=== PATIENT | female | born 2000 | race Caucasian/White ===

== ENCOUNTER 2022-11-13 09:30 | Outpatient (OUT) | payer BC, SELFPAY ==
--- NOTE | 2022-11-13 09:35 | US_ITS ---
[place] [id number] Patient Name: ALPA KNIGHT MRN: [id number] date: 2000 Sex: F Assigned Patient Location: US Current Patient Location: US Accession/Order Number: [id number] Exam Date: 11/13/2022 09:34 Report Date: 11/13/2022 20:13 At the request of: OXANA LLANOS Procedure: US OB incomplete anatomy EXAM: US OB incomplete anatomy HISTORY: SUBVISUALIZED ANATOMY COMPARISON: 10/15/2022 TECHNIQUE: Transabdominal images FINDINGS: Heart rate: 152 beats minute Clinical age: 25 weeks 3 days Clinical ALE: 02/23/2023 Normal observed anatomy: Cerebellum, lateral ventricles, hard palate, RVOT, LVOT, cord insertion, three-vessel cord Suboptimal visualization due to maternal body habitus: IMPRESSION: Normal observed anatomy Electronically authenticated by: JOSE DURHAM Date: 11/13/2022 20:13
== END 2022-11-13 09:31 | disposition home or self-care (01) ==
LOC: US 09:31
PROVIDERS: Visit Provider Obstetrics & Gynecology
DX: Z36.2 Encounter for other antenatal screening follow-up (principal); Z01.419 Encounter for gynecological examination (general) (routine) without abnormal findings
CPT/HCPCS: 76815; G0145

== ENCOUNTER 2022-11-13 20:34 | Outpatient (REF) | payer BC, SELFPAY ==
[2022-11-17 13:07] LABS: Age Gdln ACOG Testing Note (.); IGP, rfx Aptima HPV ASCU Note (.)
== END 2022-11-13 20:35 | disposition home or self-care (01) ==
LOC: LAB 20:34
PROVIDERS: Visit Provider Obstetrics & Gynecology
DX: Z01.419 Encounter for gynecological examination (general) (routine) without abnormal findings (principal)
CPT/HCPCS: G0145

== ENCOUNTER 2022-11-14 16:19 | Outpatient (OUT) | payer BC, SELFPAY ==
[2022-11-14 17:03] LABS: BOX Test Sent Out Y
== END 2022-11-14 16:20 | disposition home or self-care (01) ==
PROVIDERS: Visit Provider Obstetrics & Gynecology
DX: Z34.91 Encounter for supervision of normal pregnancy, unspecified, first trimester (principal)
CPT/HCPCS: 36415

== ENCOUNTER 2023-01-08 09:59 | Outpatient (OUT) | payer BC, SELFPAY ==
--- NOTE | 2023-01-08 10:00 | US_ITS ---
The [address] [address] Patient Name: ALPA KNIGHT MRN: [id number] date: 2000 Sex: F Assigned Patient Location: US Current Patient Location: US Accession/Order Number: [id number] Exam Date: 01/08/2023 10:01 Report Date: 01/08/2023 15:16 At the request of: OXANA LLANOS Procedure: US OB growth EXAMINATION: US OB growth HISTORY: SIZE INCONSISTENT WITH DATES COMPARISON: No relevant comparison available. FINDINGS: Heart Rate: 168.0 bpm Number: 1.0 Position: Cephalic Amniotic Fluid Volume: 17.3 cm Maximum Vertical Pocket: 6.8 cm BIOMETRY: BPD: 8.4 cm cm; 33 weeks 5 days HC: 29.9 cmcm; 33 weeks 1 days AC: 30.5 cm cm; 34 weeks 3 days FL: 6.4 cm cm; 33 weeks 1 days EFW: 2292.9 grams; 55% FL/AC: 21.0 FL/BPD: 76.7 HC/AC: 1.0 GESTATIONAL AGE: Age by EDC: 33 weeks 3 days ALE by EDC: 02/23/2023 Age by US: 33 weeks 4 days ALE by US: 02/22/2023 US/US OB growth IMPRESSION: 1. Single live intrauterine with growth detailed above. Electronically authenticated by: ДМИТРИЙ JONES Date: 01/08/2023 15:16
== END 2023-01-08 10:00 | disposition home or self-care (01) ==
LOC: US 09:59
PROVIDERS: Visit Provider Obstetrics & Gynecology
DX: O26.843 Uterine size-date discrepancy, third trimester (principal); Z3A.33 33 weeks gestation of pregnancy
CPT/HCPCS: 76816

== ENCOUNTER 2023-01-30 20:33 | Outpatient (REF) | payer BC, SELFPAY | END 2023-01-30 20:34 | disposition home or self-care (01) | LOC: LAB 20:33 | PROVIDERS: Visit Provider Obstetrics & Gynecology | DX: Z34.93 Encounter for supervision of normal pregnancy, unspecified, third trimester (principal) | CPT/HCPCS: 87081 ==

== ENCOUNTER 2023-02-12 12:15 | Outpatient (OUT) | payer BC, SELFPAY ==
--- NOTE | 2023-02-12 12:24 | US_ITS ---
[address] [address] Patient Name: ALPA KNIGHT MRN: [id number] date: 2000 Sex: F Assigned Patient Location: [facility] Current Patient Location: [facility] Accession/Order Number: [id number] Exam Date: 02/12/2023 12:30 Report Date: 02/12/2023 13:18 At the request of: OXANA LLANOS Procedure: US OB BPP w non-stress EXAM: US OB growth, US OB BPP w non-stress; [id number], [id number] HISTORY: Decreased motion. COMPARISON: growth ultrasound 01/08/2023. FINDINGS: A single intrauterine is identified. Presentation is cephalic. BPD 8.91 cm = 36 weeks 0 days, 15.8 percentile. HC 31.86 cm = 35 weeks 6 days, less than 3 percentile (previously 10.6 percentile) AC 34.51 cm = 38 weeks 3 days, 69.3 percentile FL 7.01 cm = 36 weeks 0 days, 5.9 percentile. Composite gestational age is 36 weeks 4 days (+/- 2 weeks 4 days). Estimated weight is 3164 +/- 474.66 g. CI = 82.07 (70.0-86.0) HC/AC = 0.92 (0.92 - 1.06) EFW Percentile: 35.4%, previously 55.4% Biophysical profile: Movement: 2 Tone: 2 Breathin Fluid: 2 Total: 8/8 heart rate measures 131 bpm. Amniotic fluid index (JESS) measures 16.31 cm. Cervix appears closed. US/US OB BPP w non-stress IMPRESSION: 1. Single living intrauterine with interval growth. 2. Estimated gestational age is 36 w 4 d based on this exam, concordant with provided gestational age of 38 weeks 3 days when accounting for the confidence interval of +/- 2 weeks 4 days. 3. Estimated weight of 3164 g. 4. Normal amniotic fluid index. 5. Normal biophysical profile. 6. Head circumference is less than 3 percentile. Electronically authenticated by: KYA FRANCOIS Date: 02/12/2023 13:18
--- NOTE | 2023-02-12 12:24 | US_ITS ---
The [address] [address] Patient Name: ALPA KNIGHT MRN: [id number] date: 2000 Sex: F Assigned Patient Location: [facility] Current Patient Location: [facility] Accession/Order Number: [id number] Exam Date: 02/12/2023 12:30 Report Date: 02/12/2023 13:18 At the request of: OXANA LLANOS Procedure: US OB growth EXAM: US OB growth, US OB BPP w non-stress; [id number], [id number] HISTORY: Decreased motion. COMPARISON: growth ultrasound 01/08/2023. FINDINGS: A single intrauterine is identified. Presentation is cephalic. BPD 8.91 cm = 36 weeks 0 days, 15.8 percentile. HC 31.86 cm = 35 weeks 6 days, less than 3 percentile (previously 10.6 percentile) AC 34.51 cm = 38 weeks 3 days, 69.3 percentile FL 7.01 cm = 36 weeks 0 days, 5.9 percentile. Composite gestational age is 36 weeks 4 days (+/- 2 weeks 4 days). Estimated weight is 3164 +/- 474.66 g. CI = 82.07 (70.0-86.0) HC/AC = 0.92 (0.92 - 1.06) EFW Percentile: 35.4%, previously 55.4% Biophysical profile: Movement: 2 Tone: 2 Breathin Fluid: 2 Total: 8/8 heart rate measures 131 bpm. Amniotic fluid index (JESS) measures 16.31 cm. Cervix appears closed. US/US OB growth IMPRESSION: 1. Single living intrauterine with interval growth. 2. Estimated gestational age is 36 w 4 d based on this exam, concordant with provided gestational age of 38 weeks 3 days when accounting for the confidence interval of +/- 2 weeks 4 days. 3. Estimated weight of 3164 g. 4. Normal amniotic fluid index. 5. Normal biophysical profile. 6. Head circumference is less than 3 percentile. Electronically authenticated by: KYA FRANCOIS Date: 02/12/2023 13:18
[2023-02-12 12:56] VITALS: BP 140/93; PULSE 103
== END 2023-02-12 13:28 | disposition home or self-care (01) ==
LOC: FBCO 12:17 → FBC 12:18
PROVIDERS: Visit Provider Obstetrics & Gynecology
DX: O36.8130 Decreased fetal movements, third trimester, not applicable or unspecified (principal); Z3A.38 38 weeks gestation of pregnancy
CPT/HCPCS: 76816; 76818

== ENCOUNTER 2023-02-18 10:06 | Inpatient (IN) | payer BC, SELFPAY ==
[2023-02-18] VITALS (45 sets, daily range): BP systolic 101–149; BP diastolic 61–104; PULSE 73–100; RESP 13–24; TEMP 36.2–37.1; O2SAT 96–100
[2023-02-18] MEDS: 0.9 % SODIUM CHLORIDE 1,000 ML 1000 ML IV ×2 (11:13→11:29)
[2023-02-18 11:24] LABS: Bilirubin Urine NEGATIVE (NEGATIVE); Blood Urine MODERATE (NEGATIVE); Color Urine LT. YELLOW (YELLOW); Glucose Urine UA NEGATIVE (NEGATIVE); Ketones Urine NEGATIVE (NEGATIVE); Leukocyte Esterase Urine MODERATE (NEGATIVE); Nitrite Urine NEGATIVE (NEGATIVE); Protein Urine TRACE mg/dL (NEG/TRACE); Specific Gravity Urine 1.025 (1.005-1.025); Urobilinogen Urine 0.2 EU/dL (0.2-1.0)
[2023-02-18 11:28] LABS: Clarity Urine CLOUDY (CLEAR)
[2023-02-18 11:39] LABS: Basophils Percent Auto 0.5 % (0.2-2.0); Eosinophils Absolute Auto 0.1 10^3/uL (0.0-0.7); Eosinophils Percent Auto 1.9 % (0.9-7.0); Hematocrit 36.1 % (36.0-48.0); Hemoglobin 12.2 g/dL (12.0-16.0); Immature Granulocytes Abs Auto 0.03 10^3/uL (0.00-0.03); Immature Granulocytes Pct Auto 0.4 % (0.0-0.5); Lymphocytes Absolute Auto 1.4 10^3/uL (1.2-3.8); Lymphocytes Percent Auto 19.2 % (20.5-60.0); Mean Corpuscular HGB Conc 33.8 g/dL (29.9-35.2); Mean Corpuscular Hemoglobin 27.4 pg (26.7-34.0); Mean Corpuscular Volume 80.9 fL (81.0-99.0); Mean Platelet Volume 9.9 fL (9.5-13.5); Monocytes Absolute Auto 0.4 10^3/uL (0.3-0.8); Monocytes Percent Auto 5.3 % (1.7-12.0); Neutrophils Absolute Auto 5.4 10^3/uL (1.4-6.5); Neutrophils Percent Auto 72.7 % (43.0-75.0); Platelet Count 272 10^3/uL (150-450); Red Blood Count 4.46 10^6/uL (4.20-5.40); Red Cell Distribution Width 13.7 % (11.0-15.0); White Blood Count 7.4 10^3/uL (4.0-11.0)
[2023-02-18 11:49] LABS: Amphetamine Screen Urine NEGATIVE (NEGATIVE); Barbiturates Screen Urine NEGATIVE (NEGATIVE); Benzodiazepines Screen Urine NEGATIVE (NEGATIVE); Buprenorphine Screen Urine NEGATIVE (NEGATIVE); Cannabinoid Screen Urine NEGATIVE (NEGATIVE); Cocaine Screen Urine NEGATIVE (NEGATIVE); Methadone Screen Urine NEGATIVE (NEGATIVE); Methamphetamines Screen Urine NEGATIVE (NEGATIVE); Opiate Screen Urine NEGATIVE (NEGATIVE); Oxycodone Screen Urine NEGATIVE (NEGATIVE); Phencyclidine Screen Urine NEGATIVE (NEGATIVE); Tricyclic Antidepressant Urine NEGATIVE (NEGATIVE)
[2023-02-18 11:57] LABS: Bacteria Urine LARGE #/HPF (NONE SEEN); Mucus Urine NONE SEEN (NONE SEEN)
[2023-02-18 11:58] LABS: Squamous Epithelial Cell Urine MODERATE #/LPF (NONE/RARE)
[2023-02-18] MEDS: CEFAZOLIN SODIUM/DEXTROSE,ISO 2 GM/50 ML PIGGYBACK IV ×2 (12:35→18:11)
[2023-02-18] MEDS: LACTATED RINGER'S SOLUTION 1,000 ML 50 ML IV ×2 (12:40→13:47)
--- NOTE | 2023-02-18 13:41 | P.ON_ITS ---
Brief Operative Note Date of procedure: 02/18/23 Pre-op diagnosis: iup at 39wks, cpd, elective c/s Post-op diagnosis: same as pre-op Procedure: NAME OF PROCEDURE: [ section ] PROCEDURE: Patient was taken back to the Operating Room where she was given a spinal anesthesia with Duramorph without difficulty. She was prepped and draped in the normal sterile fashion. A Pfannenstiel skin incision was then made 2 cm above the symphysis pubis and carried down to underlying rectus fascia using a Bovie. The fascia was incised in the midline and extended laterally using Mendoza scissors. Two Raj clamps were placed on the superior aspect of the fascia and dissected off the underlying rectus muscles. The same was performed on the inferior aspect as well. The muscles were then in the midline. Peritoneum was identified and entered bluntly. The peritoneum was then extended superiorly and inferiorly with good visualization of the bladder. The bladder blade was inserted. A low transverse incision was made on the patient's uterus and extended laterally digitally. The infant was then delivered atraumatically after the bladder blade was removed in the cephalic position. The cord was clamped and cut. Cord blood was obtained. The was handed off to awaiting team. The patient's placenta was spontaneously delivered. The uterus was then exteriorized. The uterus was cleared of all clots and debris. The ivonne dder blade was reinserted. The patient's uterine incision was closed using #0 Vicryl in a running lock fashion. Excellent hemostasis was assured. The uterus was then returned to the patient's abdomen. The patient's abdomen was copiously irrigated using warm saline. Peritoneal gutters were cleared of all clots and debris. Again excellent hemostasis was assured. The patient's peritoneum was closed using 3-0 Vicryl in a running fashion. The patient's fascia was closed using #0 Vicryl in a running fashion. The patient's skin was closed using 4-0 Vicryl subcuticularly. The patient tolerated the procedure well. Sponge, lap, and needle counts were correct x2. The patient was taken to the Recovery Room in stable condition. Anesthesia: spinal Surgeon: Leonid Mckeon Senior Loan Processor: Nayana Powell Estimated blood loss (mL): 575 Pathology: none sent Condition: stable Disposition: floor
--- NOTE | 2023-02-18 13:42 | PM.OBPRCCS ---
Procedure Pre-op/Post-op diagnoses: Pre-Op/Post-Op Diagnoses Operation Date: 02/18/23 12:00 <No data on this case meets the specified criteria> Procedure: Procedures Operation Date: 02/18/23 12:00 Actual Procedure Side Surgeon p Not Applicable Leonid Mckeon DO Email Marketing Coordinator: Nayana Powell Estimated blood loss (mL): 575 Disposition: floor Anesthesia type: Spinal
[2023-02-18] MEDS: OXYTOCIN/0.9 % SODIUM CHLORIDE 20 UNITS/1,000 ML PLAST..BAG 200 UNIT IV (14:21)
[2023-02-18] MEDS: KETOROLAC TROMETHAMINE 30 MG/ML VIAL IVP ×2 (15:32→22:30)
--- NOTE | 2023-02-18 22:15 | PC.NURSE ---
2150-Patient pumping after attempting to feed without success. sleepy at this time. 2204- Finger fed infant drops collected on pump.
--- NOTE | 2023-02-18 23:52 | PC.NURSE ---
Patient up to bathroom. PeriCare performed and linens changed. Patient up ambulating in room. Tolerated well.
[2023-02-19] VITALS (10 sets, daily range): BP systolic 117–165; BP diastolic 74–90; PULSE 84–102; RESP 16–18; TEMP 36.2–36.5; O2SAT 96
--- NOTE | 2023-02-19 00:11 | PC.NURSE ---
Set blood pressure cuff for 15 minutes due to elevated pressure. Patient was just up ambulating prior to vitals.
[2023-02-19] MEDS: ENOXAPARIN SODIUM 40 MG/0.4 ML SYRINGE SUBQ (02:11)
[2023-02-19] MEDS: KETOROLAC TROMETHAMINE 30 MG/ML VIAL IVP ×3 (05:39→17:59)
[2023-02-19 06:00] LABS: Basophils Percent Auto 0.4 % (0.2-2.0); Eosinophils Absolute Auto 0.1 10^3/uL (0.0-0.7); Hematocrit 30.5 % (36.0-48.0); Immature Granulocytes Abs Auto 0.01 10^3/uL (0.00-0.03); Immature Granulocytes Pct Auto 0.1 % (0.0-0.5); Lymphocytes Absolute Auto 2.3 10^3/uL (1.2-3.8); Lymphocytes Percent Auto 29.9 % (20.5-60.0); Mean Corpuscular HGB Conc 32.8 g/dL (29.9-35.2); Mean Corpuscular Hemoglobin 27.2 pg (26.7-34.0); Mean Corpuscular Volume 83.1 fL (81.0-99.0); Mean Platelet Volume 9.2 fL (9.5-13.5); Monocytes Absolute Auto 0.4 10^3/uL (0.3-0.8); Monocytes Percent Auto 4.9 % (1.7-12.0); Neutrophils Absolute Auto 4.9 10^3/uL (1.4-6.5); Neutrophils Percent Auto 63.7 % (43.0-75.0); Platelet Count 213 10^3/uL (150-450); Red Blood Count 3.67 10^6/uL (4.20-5.40); White Blood Count 7.8 10^3/uL (4.0-11.0)
--- NOTE | 2023-02-19 07:32 | PM.OBPN ---
OB - PN: Subj Subjective Patient comments: no complaints [place] status: doing well Exam Constitutional Vital Signs, click to edit/add: Last Vital Signs Temp 97.7 F 02/19/23 05:30 Pulse 90 02/19/23 05:27 Resp 16 02/19/23 05:30 BP 151/79 H 02/19/23 05:27 Pulse Ox 96 02/19/23 05:30 O2 Del Method Room Air 02/19/23 05:30 Documenting provider has reviewed patient's vital signs: yes Common normals: no apparent distress Respiratory Common normals: normal respiratory effort and clear to auscultation bilaterally Cardio Common normals: regular rate and regular rhythm GI Common normals: Normal to inspection, nondistended, normoactive bowel sounds present Extremity Common normals: no clubbing, cyanosis or edema and no calf tenderness Results Labs Labs: Short CBC 02/18/23 02/19/23 Range/Units 10:45 05:54 WBC 7.4 7.8 (4.0-11.0) 10^3/uL Hgb 12.2 10.0 L (12.0-16.0) g/dL Hct 36.1 30.5 L (36.0-48.0) % Plt Count 272 213 (150-450) 10^3/uL Urine 02/18/23 Range/Units 10:45 Urine Color Lt. yellow (YELLOW) Urine Clarity Cloudy A (CLEAR) Urine pH 6.0 (5.0-9.0) Ur Specific [place] 1.025 (1.005-1.025) Urine Protein Trace (NEG/TRACE) mg/dL Urine Glucose (UA) Negative (NEGATIVE) mg/dL OB - PN: A/P Plan - day: 1 Plan: routine postop care Time Spent with Patient Time: Total time spent is greater than 50% in coordination of care (as documented) at patient's floor/unit and/or counseling patient: Total time spent with greater than 50% in coordination of care (as documented) at patient's floor/unit and/or counseling patient: less than 15 minutes
[2023-02-19] MEDS: DOCUSATE SODIUM 100 MG CAPSULE PO ×2 (08:22→22:25)
--- NOTE | 2023-02-19 09:28 | PC.NURSE ---
LC enter room, Lynne in bed with baby on chest skin to skin. Baby is crying, hat over eyes and arching back. Lynne does not soothe or talk to baby, father on couch on his phone. LC talk to baby and he quiets self. Mom encouraged to talk and interact with baby. Encouraged to be up to rocking chair for feed. Does as requested and settled self. NB to cross cradle position. Review of positioning for deep latch and then latching baby. Lynne does not show eagerness to assist with latch. requests to use shield and LC reviewed placement of same. LC assists in getting baby to latch with shield, Lynne reluctant to support breast to aid. Baby does latch and suckle with shield on. LC encourages Lynne to take lead in feeding and learning to latch baby independently. Of note: Breasts are symmetrical bilaterally, wide space between breasts and nipples are flat, slightly everts with stimulation. reports barely drops when pumping Reviewed process of milk coming in and the value of good massage, stimulation and milk removal to bring in milk. Both verbalized understanding.
--- NOTE | 2023-02-19 14:58 | PC.NURSE ---
Infant PKU, Bili and Point of Care Glucose obtained due to being jittery. Blood Glucose of 57. Bili obtained and sent to lab. PKU completed. Infant rooting excessively, returned to mom, to breast in cross cradle hold, latches with shield and begins sucking with intermittent swallows.Parents actively working to position, and latch . Mom displays confidence in getting baby to breast. States There we are getting the hang of this Support offered.
--- NOTE | 2023-02-19 19:42 | W.PC.ACHO ---
Registration Status: ADM IN Primary Language: Bolivian Preferred Language: Bolivian Active Medications Generic Name Dose Route Start Last Admin Trade Name Freq PRN Reason Stop Dose Admin Al Hydroxide/Mg Hydroxide 2,400 mg 02/18/23 13:39 Magnesium Hydroxide 2,400 Mg/10 Ml Oral.Susp PO Q6H PRN Dyspepsia Diphtheria/Pertussis/Tetanus Vacc 0.5 ml 02/20/23 09:00 Adacel Diph,Pertuss(Acell),Tet Vac/Pf 0.5 Ml Adult Syringe IM 02/20/23 09:01 .ONCE ONE Docusate Sodium 100 mg 02/19/23 09:00 02/19/23 08:22 Docusate Sodium 100 Mg Capsule PO 100 mg BID KIKO Administration Enoxaparin Sodium 40 mg 02/19/23 02:00 02/19/23 02:11 Enoxaparin Sodium 40 Mg/0.4 Ml Syringe SUBQ 40 mg Q24H KIKO Administration Lactated Ringer's 1,000 mls @ 50 mls/hr 02/18/23 13:30 02/18/23 13:47 Lactated Ringers IV 50 mls/hr .Q20H KIKO Administration Sodium Chloride 1,000 mls @ 125 mls/hr 02/18/23 13:45 Sodium Chloride 0.9% 1,000 Ml IV .Q8H KIKO Ibuprofen 800 mg 02/18/23 13:39 Ibuprofen 400 Mg Tablet PO Q8H PRN Pain Ketorolac Tromethamine 30 mg 02/18/23 13:39 02/19/23 17:59 Ketorolac Tromethamine 30 Mg/Ml Vial IVP 02/20/23 13:40 30 mg Q6H PRN Administration Pain Measles/Mumps/Rubella Vaccine Live 0.5 ml 02/20/23 09:00 Measles,Mumps,Rubella Vacc/Pf 0.5 Ml Vial SQ 02/20/23 09:01 .ONCE ONE Misoprostol 1,000 mcg 02/18/23 10:27 Misoprostol 100 Mcg Tablet NJ 02/20/23 10:27 ONCE PRN Uterine Bleeding Misoprostol 600 mcg 02/18/23 10:27 Misoprostol 100 Mcg Tablet PO 02/20/23 10:27 ONCE PRN Uterine Bleeding Misoprostol 800 mcg 02/18/23 10:27 Misoprostol 100 Mcg Tablet SL 02/20/23 10:27 ONCE PRN Uterine Bleeding Ondansetron HCl 4 mg 02/18/23 13:39 Ondansetron Pf 4 Mg/2 Ml Vial IV Q6H PRN Nausea And Vomiting Ondansetron HCl 4 mg 02/18/23 13:39 Ondansetron 4 Mg Rapdis Tablet PO Q6H PRN Nausea And Vomiting Oxycodone/Acetaminophen 1 tab 02/18/23 13:39 Oxycodone Hcl/Acetaminophen 5mg/325mg PO Q4H PRN Pain Scale 4-6 Oxycodone/Acetaminophen 2 tab 02/18/23 13:39 Oxycodone Hcl/Acetaminophen 5mg/325mg PO Q4H PRN Pain Scale 7-10 Oxytocin 10 unit 02/18/23 10:27 Oxytocin 10 Unit/Ml Vial IM 02/20/23 10:27 ONCE PRN Bleeding Promethazine HCl 12.5 mg 02/18/23 11:48 Promethazine Hcl 25 Mg/Ml Vial IV ONCE PRN Nausea Senna 17.2 mg 02/18/23 20:00 Sennosides 8.6 Mg Tablet PO QHS PRN Constipation Simethicone 80 mg 02/18/23 13:39 Simethicone 80 Mg Tab.Chew PO QID PRN Abdominal Distention Varicella Virus Vaccine Live 0.5 ml 02/20/23 09:00 Varicella Vaccine Live/Pf 0.5 Ml Vial SUBQ 02/20/23 09:01 .ONCE ONE Respiratory Pulse Oximetry 96 Oxygen Delivery Method Room Air Oxygen Delivery Method Room Air Oxygen Delivery Method Room Air Oxygen Delivery Method Room Air Oxygen Delivery Method Room Air Oxygen Delivery Method Room Air Oxygen Delivery Method Room Air Oxygen Delivery Method Room Air Cardiology Heart Sounds Strong,Regular Heart Sounds Strong,Regular Bowels Bowel Pattern No Bowel Movement Bowel Pattern No Bowel Movement Bowel Pattern No Bowel Movement Bowel Pattern No Bowel Movement Bowel Pattern No Bowel Movement Renal Bladder Pattern Continent Bladder Pattern Continent
[2023-02-20] MEDS: KETOROLAC TROMETHAMINE 30 MG/ML VIAL IVP ×2 (01:12→08:25)
[2023-02-20] MEDS: ENOXAPARIN SODIUM 40 MG/0.4 ML SYRINGE SUBQ (05:20)
--- NOTE | 2023-02-20 07:22 | W.PC.ACHO ---
Registration Status: ADM IN Primary Language: Estonian Preferred Language: Estonian Active Medications Generic Name Dose Route Start Last Admin Trade Name Freq PRN Reason Stop Dose Admin Al Hydroxide/Mg Hydroxide 2,400 mg 02/18/23 13:39 Magnesium Hydroxide 2,400 Mg/10 Ml Oral.Susp PO Q6H PRN Dyspepsia Diphtheria/Pertussis/Tetanus Vacc 0.5 ml 02/20/23 09:00 Adacel Diph,Pertuss(Acell),Tet Vac/Pf 0.5 Ml Adult Syringe IM 02/20/23 09:01 .ONCE ONE Docusate Sodium 100 mg 02/19/23 09:00 02/19/23 22:25 Docusate Sodium 100 Mg Capsule PO 100 mg BID KIKO Administration Enoxaparin Sodium 40 mg 02/19/23 02:00 02/20/23 05:20 Enoxaparin Sodium 40 Mg/0.4 Ml Syringe SUBQ 40 mg Q24H KIKO Administration Lactated Ringer's 1,000 mls @ 50 mls/hr 02/18/23 13:30 02/18/23 13:47 Lactated Ringers IV 50 mls/hr .Q20H KIKO Administration Sodium Chloride 1,000 mls @ 125 mls/hr 02/18/23 13:45 Sodium Chloride 0.9% 1,000 Ml IV .Q8H KIKO Ibuprofen 800 mg 02/18/23 13:39 Ibuprofen 400 Mg Tablet PO Q8H PRN Pain Ketorolac Tromethamine 30 mg 02/18/23 13:39 02/20/23 01:12 Ketorolac Tromethamine 30 Mg/Ml Vial IVP 02/20/23 13:40 30 mg Q6H PRN Administration Pain Measles/Mumps/Rubella Vaccine Live 0.5 ml 02/20/23 09:00 Measles,Mumps,Rubella Vacc/Pf 0.5 Ml Vial SQ 02/20/23 09:01 .ONCE ONE Misoprostol 1,000 mcg 02/18/23 10:27 Misoprost[address] 02/20/23 10:27 ONCE PRN Uterine Bleeding Misoprostol 600 mcg 02/18/23 10:27 Misoprostol 100 Mcg Tablet PO 02/20/23 10:27 ONCE PRN Uterine Bleeding Misoprostol 800 mcg 02/18/23 10:27 Misoprostol 100 Mcg Tablet SL 02/20/23 10:27 ONCE PRN Uterine Bleeding Ondansetron HCl 4 mg 02/18/23 13:39 Ondansetron Pf 4 Mg/2 Ml Vial IV Q6H PRN Nausea And Vomiting Ondansetron HCl 4 mg 02/18/23 13:39 Ondansetron 4 Mg Rapdis Tablet PO Q6H PRN Nausea And Vomiting Oxycodone/Acetaminophen 1 tab 02/18/23 13:39 Oxycodone Hcl/Acetaminophen 5mg/325mg PO Q4H PRN Pain Scale 4-6 Oxycodone/Acetaminophen 2 tab 02/18/23 13:39 Oxycodone Hcl/Acetaminophen 5mg/325mg PO Q4H PRN Pain Scale 7-10 Oxytocin 10 unit 02/18/23 10:27 Oxytocin 10 Unit/Ml Vial IM 02/20/23 10:27 ONCE PRN Bleeding Promethazine HCl 12.5 mg 02/18/23 11:48 Promethazine Hcl 25 Mg/Ml Vial IV ONCE PRN Nausea Senna 17.2 mg 02/18/23 20:00 Sennosides 8.6 Mg Tablet PO QHS PRN Constipation Simethicone 80 mg 02/18/23 13:39 Simethicone 80 Mg Tab.Chew PO QID PRN Abdominal Distention Varicella Virus Vaccine Live 0.5 ml 02/20/23 09:00 Varicella Vaccine Live/Pf 0.5 Ml Vial SUBQ 02/20/23 09:01 .ONCE ONE Respiratory Oxygen Delivery Method Room Air Oxygen Delivery Method Room Air Oxygen Delivery Method Room Air Oxygen Delivery Method Room Air Oxygen Delivery Method Room Air Cardiology Heart Sounds Strong,Regular Heart Sounds Strong,Regular Bowels Bowel Pattern No Bowel Movement Bowel Pattern No Bowel Movement Renal Bladder Pattern Continent Bladder Pattern Continent Bladder Pattern Continent
[2023-02-20] MEDS: ADACEL DIPH,PERTUSS(ACELL),TET VAC/PF 0.5 ML ADULT SYRINGE IM (08:25)
[2023-02-20] MEDS: DOCUSATE SODIUM 100 MG CAPSULE PO (08:27)
[2023-02-20 08:30] VITALS: BP 138/86; PULSE 78; RESP 16; TEMP 36.9
[2023-02-20 08:43] VITALS: BP 140/94; PULSE 88
[2023-02-20 08:47] VITALS: BP 152/97; PULSE 99
[2023-02-20 13:00] VITALS: BP 140/82
--- NOTE | 2023-02-20 13:22 | PM.OBDS ---
DS: Providers Provider Date of admission: 02/18/23 10:06 Primary care physician: Non-Staff Physician, Attending physician on admission: Leonid Mckeon Consults: 02/18/23 Consult to Anesthesiology Routine Consulting Provider: Hospitalist Reason for consultation: SPINAL Has provider been notified: Yes Discharging clinician: Britney Brand Anticipated date of discharge: 02/20/23 DS: Diagnosis Discharge Diagnosis (1) delivery delivered: Assessment and plan: CLINICAL EXAM NON FOCAL, VITAL SIGNS NORMAL ECCEPT BLOOD PRESSURE READING WHICH WAS ELEVATED DUE TO CUFF NOT FITTING, NORMALIZED WITH APPROPRIATE SIZE CUFF Plan DISCHARGE OB - DS: Summary Hospital Course Time spent discussing smoking cessation with patient: 3 to 10 minutes Peripartum Data - Procedures: Procedures Operation Date: 02/18/23 12:00 Actual Procedure Side Surgeon p Not Applicable Leonid Mckeon DO Peripartum Data - Vaginal Delivery Procedures: Procedures Operation Date: 02/18/23 12:00 Actual Procedure Side Surgeon p Not Applicable Leonid Mckeon DO Complications complications: none Delivery method: elective section Gender: female Discharge plan: home Status at Discharge Functional status at discharge: independent ambulation Time Spent with Patient Time attestation: Total time spent providing and/or coordinating discharge services: Time spent: less than 30 minutes Specific discharge activities: NO SEX SIX WEEKS, NO BATHTUB FOR SIX WEEKS, MAY SHOWER, LIMIT TIME IN CAR 4 WEEKS, LEAVE INCISION ALONE, GENERAL COVID AND RSV PRECAUTIONS GIVEN, FOLLOW UP IN ONE WEEK FOR INCISION CHECK Exam Constitutional Vital Signs, click to edit/add: Last Vital Signs Temp 98.4 F 02/20/23 08:30 Pulse 99 H 02/20/23 08:47 Resp 16 02/20/23 08:30 BP 152/97 H 02/20/23 08:47 Pulse Ox 96 02/19/23 05:30 O2 Del Method Room Air 02/19/23 21:00 Documenting provider has reviewed patient's vital signs: yes Common normals: no apparent distress, oriented x3, no limitations, healthy appearing and alert General appearance: cooperative HENMT Common normals: normocephalic and head/scalp atraumatic Eye Pupil: PERRL and accommodation reflex normal Neck & C-Spine Common normals: full ROM and supple Respiratory Common normals: normal respiratory effort Cardio Common normals: regular rate and regular rhythm GI Common normals: Normal to inspection, nondistended, normoactive bowel sounds present Common normals: no CVA tenderness Extremity Common normals: normal to inspection, full ROM and no calf tenderness Neuro Common normals: oriented x3, CN's II-XII intact bilaterally, no focal motor deficits and no sensory deficits noted Psych Common normals: mental status grossly normal, thought process normal, cooperative and affect normal Discharge Plan Discharge Disposition: Home, Self-Care Condition: Good Assessment: CLINICAL EXAM NON FOCAL Health Concerns: NONE3 Plan of Treatment: DISCHARGE HOME Activity: resume usual activities as tolerated Activity Detail: WALKING ONLY EXERCISE FOR SIX WEEKS. NO SEX FOR SIX WEEKS. MAY SHOWER. NO BATHTUB FOR SIX WEEKS. SPORTS BRA IF NOT BREAST FEEDING 09/12. FOLLOW UP WITH DR. DAIGLE IN ONE WEEK FOR INCISION CHECK. GENERAL COVID AND RSV PRECAUTIONS GIVEN. CALL FOR PROBLEM OR CONCERN Diet: advance to your usual diet Patient Instructions: (DC) Forms: Portal Instructions Follow Up Appointments: NEEDS TO SEE DR. MCKEON IN ONE WEEK FOR INCISION CHECK Discharge location: HOME
== END 2023-02-20 16:30 | disposition home or self-care (01) | DRG 788 ==
PROVIDERS: Admitting Provider Obstetrics & Gynecology; Visit Provider Obstetrics & Gynecology
PROC: 10D00Z1 Extraction of Products of Conception, Low, Open Approach (ICD-10-PCS; CPT 59514; principal; 2023-02-18 12:00)
DX: O33.9 Maternal care for disproportion, unspecified (principal); O90.89 Other complications of the puerperium, not elsewhere classified; R51.9 Headache, unspecified; O99.284 Endocrine, nutritional and metabolic diseases complicating childbirth; E28.2 Polycystic ovarian syndrome; O75.89 Other specified complications of labor and delivery; H90.5 Unspecified sensorineural hearing loss; Z3A.39 39 weeks gestation of pregnancy; Z37.0 Single live birth; Z88.5 Allergy status to narcotic agent; Z83.3 Family history of diabetes mellitus; Z84.1 Family history of disorders of kidney and ureter; Z81.8 Family history of other mental and behavioral disorders; Z82.49 Family history of ischemic heart disease and other diseases of the circulatory system; Z23 Encounter for immunization
CPT/HCPCS: 36415; 59050; 80307; 81001; 85025; 85027; 86850; 86900; 86901; 90471; 90715; 94667; 94668; 96372; 96374; 96376

== ENCOUNTER 2023-02-24 08:40 | Outpatient (OUT) | payer BC, SELFPAY ==
[2023-02-24 11:45] VITALS: BP 136/91; PULSE 87; RESP 18; TEMP 36.9; O2SAT 98
--- NOTE | 2023-02-24 11:52 | PC.NURSE ---
States has begun pumping to exclusively pump. Not interested in direct . Declines to work in latching as feels better for her and for baby. Pt has had spinal headache since discharge, spoke with linen room houseperson anesthesiologist over the weekend and declined the blood patch due to how difficult the spinal was to place the first time. Was rating headache 9.5/10 and currently is a 2/10. States feeling much better . Pt states is pumping whenever the baby is signally to feed and is obtaining 1/2 tp 1 oz each breast each pumping. Discussed flange fit, and breast massage. Also given sample exclusive pump schedule and discussed power pumping. Pt aware to have full supply will need 28-32 oz total in 24 hours. States has already started using supplemental formula when not enough breastmilk available. Infant taking 1.5-2 oz each feed at this time. both parents seem relaxed and confident in ability to caare for self, baby and adjust to family changes.
== END 2023-02-24 08:41 | disposition home or self-care (01) ==
LOC: FBCO 08:42
PROVIDERS: Visit Provider Obstetrics & Gynecology
DX: Z39.2 Encounter for routine postpartum follow-up (principal)

== ENCOUNTER 2024-10-25 20:57 | Outpatient (REF) | payer BC, SELFPAY ==
[2024-10-28 12:12] LABS: Age Gdln ACOG Testing Note (.); IGP, rfx Aptima HPV ASCU Note (.)
== END 2024-10-25 20:58 | disposition home or self-care (01) ==
LOC: LAB 20:57
PROVIDERS: Visit Provider Obstetrics & Gynecology
DX: Z01.419 Encounter for gynecological examination (general) (routine) without abnormal findings (principal)
CPT/HCPCS: 88175

== ENCOUNTER 2024-10-27 08:36 | Outpatient (OUT) | payer BC, SELFPAY ==
[2024-10-27 09:16] LABS: Basophils Percent Auto 0.5 % (0.2-2.0); Eosinophils Absolute Auto 0.1 10^3/uL (0.0-0.7); Eosinophils Percent Auto 2.4 % (0.9-7.0); Hematocrit 40.2 % (36.0-48.0); Hemoglobin 13.4 g/dL (12.0-16.0); Immature Granulocytes Abs Auto 0.01 10^3/uL (0.00-0.03); Immature Granulocytes Pct Auto 0.2 % (0.0-0.5); Lymphocytes Absolute Auto 2.1 10^3/uL (1.2-3.8); Lymphocytes Percent Auto 35.7 % (20.5-60.0); Mean Corpuscular HGB Conc 33.3 g/dL (29.9-35.2); Mean Corpuscular Hemoglobin 26.9 pg (26.7-34.0); Mean Corpuscular Volume 80.6 fL (81.0-99.0); Mean Platelet Volume 8.6 fL (9.5-13.5); Monocytes Absolute Auto 0.4 10^3/uL (0.3-0.8); Monocytes Percent Auto 6.4 % (1.7-12.0); Neutrophils Absolute Auto 3.2 10^3/uL (1.4-6.5); Neutrophils Percent Auto 54.8 % (43.0-75.0); Platelet Count 265 10^3/uL (150-450); Red Blood Count 4.99 10^6/uL (4.20-5.40); Red Cell Distribution Width 12.9 % (11.0-15.0); White Blood Count 5.9 10^3/uL (4.0-11.0)
[2024-10-27 09:31] LABS: Estimated Average Glucose 100 mg/dL; Glycohemoglobin A1C 5.1 % (4.5-6.2)
[2024-10-27 09:55] LABS: Thyroid Stimulating Hormone 2.204 uIU/mL (0.358-3.740)
[2024-10-27 10:11] LABS: HCG Quantitative <1 mIU/mL
[2024-10-28 04:07] LABS: FSH 4.2 mIU/mL (.); Luteinizing Hormone(LH) 15.6 mIU/mL (.)
[2024-10-28 08:09] LABS: Progesterone 0.2 ng/mL (.)
[2024-11-02 07:08] LABS: DHEA, Serum 346 ng/dL (31-701)
== END 2024-10-27 08:37 | disposition home or self-care (01) ==
LOC: LAB 08:38
PROVIDERS: Visit Provider Obstetrics & Gynecology
DX: E28.2 Polycystic ovarian syndrome (principal)
CPT/HCPCS: 36415; 82397; 82626; 82627; 82670; 83001; 83002; 83036; 84144; 84439; 84443; 84702; 85025

== ENCOUNTER 2025-01-20 14:29 | Outpatient (REF) | payer BC, SELFPAY ==
--- OUTSIDE RECORDS SUMMARY | 2025-01-07 05:00 | XMS_ITS ---
Author Organization [facility] in [place] Address [address] [place] [address] Care Team Providers Care Station Mechanic Name Role Phone Lavinia Soto Primary Care Provider Allergies Allergen (clinical drug ingredient) Drug/Non Drug Allergy documented on EMR Reaction Allergy Type Onset Date Status codeine Codeine vomiting Drug Allergy Active REASON FOR VISIT new patient patient has cellulitis on both legs, has been to urgent care twice for treatment but isnot clearing up Medications Medication SIG (Take, Route, Fr equency, Duration) Notes Start Date End Date Status Adipex-P 37.5 MG 1 tablet before madina kfast Orally Once a day Active Cipro 500 MG 1 tablet Orally ever y 12 hrs for 10 days 01/07/2025 Active metFORMIN HCl 1000 MG 1 tablet with a me al Orally Once a day Active Bactrim DS 800-160 MG 1 tablet Orally BI D for 10 days 01/07/2025 Active Social History Tobacco Use: Social History Observation Description Date Details (start date - stop date) Never Smoker NA - NA Tobacco Control (Standard) Question Answer Notes Tobacco use: Nonsmoker AUDIT-C (Standard) Question Answer Notes Did you have a drink containing alcohol in the p ast year? No Points 0 Interpretation Negative Problems Problem Type SNOMED Code ICD Code Onset Dates Problem Status W/U Status Risk Notes Problem Polycystic ovary syndrome (disorder) (678000637) PCOS (polycystic ovarian syndrome) (E28.2) Active confirmed Problem Morbid obesity (892873773) Class 3 obesity (E66.01) Active confirmed Vital Signs Blood pressure systolic 118 mm Hg 01/08/20 25 Blood pressure diastolic 68 mm Hg 025 Height 62 in 01/07/2025 Weight 332 lbs 01/07/2025 BMI 60.72 kg/m2 01/07/2025 Encounters Encounter Location Date Provider Diagnosis [facility] [address] [facility] [place] [address] 01/07/2025 Lavinia Soto Cellulitis L03.90 Assessments Encounter Date Diagnosis (ICD Code) Assessment Notes Treatment Notes Treatment Clinical Notes Section Notes 01/07/2025 Cellulitis (ICD-10 - L03.90) continue monitor fu if not improving Plan Of Treatment Medication Medication Name Sig Start Date Stop Date Notes Cipro 500 MG 1 tablet Orally ever y 12 hrs for 10 days 01/07/2025 Bactrim DS 800-160 MG 1 tablet Orally BID for 10 days 12/18 Treatment Notes Assessment Notes Cellulitis continue monitor fu if not improving Next Appt Details Follow Up: prn, Reason: Progress Notes * Eunice SANTOSOB:2000 (24 yo F)Acc No.[id number]:01/07/2025 New Patient Patient: Lynne DIALLO Provider: Gregoria Soto ([facility]), NUTRITION PROFESSOR :2000 A ge:24 Y S ex:Female Date:01/07/2025 [facility] [facility] [id number] Check In:08:54 AM ESTCheck O ut:09:32 AM EST Subjective: * Chief Complaints: * 1 . New patient patient has cellulitis on both legs, has been to urgent care twice for treatment but is not clearing up. 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 D epression Screening: PHQ-2 (2015 Edition) L ittle interest or pleasure in doing things??Not at all F eeling down, depressed, or hopeless? N ot at all T otal Score 0 * ROS: G eneral/Constitutional: Patient complaining of brain fog . F ever d enies. H eadache d enies. W eight loss a little on adipex so far. O phthalmologic: Discharge d enies. E ye Pain d enies. I tching and redness d enies. E NT: Nasal discharge d enies. N constanza congestion d enies.?Sore throat d enies. C ardiovascular: Chest tightness/ heavy pressure d enies. R apid heart rate d enies. S welling of extremities d enies. C hest pain d enies. ? R espiratory: Productive cough d enies. C hest pain d enies. C ough d enies. S hortness of breath d enies. W heezing d enies. ? G astrointestinal: Abdominal pain d enies. C onstipation d enies. D ecreased appetite d enies. D iarrhea d enies. N ausea d enies. V omiting?denies. G enitourinary: Urinary incontinence d enies. P ainful urination d enies. M usculoskeletal: Back pain d enies. N krystal pain d enies. M uscle aches d enies. S kin: Rash d enies. S kin lesion(s) r ight knott red scaby lesion. f atigue that improved on adipex. * Active Problem List E28.2 PCOS (polycystic ova jaret syndrome) Modified On:01/07/2025W/U Status:confirmed E66.01 Class 3 obesity Modified On:01/07/2025W/U Status:confirmed * Medical History: M edical History Verified. * Surgical History: c section 2022, wisdom teeth removed . * Family History: F ather: alive, diagnosed with Unspecified essential hypertension. M other: alive. B rother(s): alive. 1 brother(s) . 1 son(s) . . * Social History: T obacco Use: T obacco Control (Standard) T obacco use: N onsmoker D rug/Alcohol: A JACLYN-C (Standard) D id you have a drink containing alcohol in the past year? N o P oints 0 I nterpretation N egative * Medications: T aking Adipex-P(Phentermine HCl) 37.5 MG Tablet 1 tablet before breakfast Orally Once a day , Taking metFORMIN HCl 1000 MG Tablet 1 tablet with a meal Orally Once a day , Medication List reviewed and reconciled with the patient * Allergies: C odeine: vomiting. Objective: * Vitals: W t:332lbs, Ht: 62 in, BP:118/68mm Hg, BMI:60.72Index, Ht-cm: 157.48 cm, Wt-k.59 kg. * Examination: G eneral Examinations: GENERAL APPEARANCE: a lert and oriented, i n no acute distress. EYES: c onjunctiva normal, sclera non-icteric. LUNGS: c lear to auscultation bilaterally. CARDIO: r egular rate and rhythm, S1, S2 normal. ABDOMEN: s oft, nontender. MUSCULOSKELETAL: G ait and station normal. SKIN: l eft knott red scaby lesion with surrounding redness no warmth no drainage. Assessment: * Assessment: 1. C kala - L03.90 (Primary) Plan: * Treatment: * Preventive Medicine: Screenings/Counseling: B CT ACTION PLAN Above Normal BMI Follow-up D ietary management education, guidance, and counseling * Follow Up: p rn * * Electronically signed by Sujey Soto , TRIM MOUNTER, ENVIRONMENTAL EDUCATION SPECIALIST.NUTRITION [id number] on 01/13/2025 at 09:28 AM EDT Sign off status: Completed Visit Status: C HK (Check Out) true * Provider: Gregoria Soto ([facility]), NUTRITION PROFESSOR Date: 01/07/2025 Generated for Corey shah/Abrahan/eTransmitting on: 0 01/20/2025 02:31 PM EDT History and Physical Notes * HPI (History of Present Illness) Category Sub-Category Detail Notes Category Not es General UC twice fleas in yard found tic on mattress cephalexin , started to clear, doxy 10 days PCOS adipex thru OBGYN, has been losing some friends with MRSA left leg would like thyroid re checked feeling better on phentermine before that fatigue, legs felt heavy BH labs in October- order labs in Jan, 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 memory issues , 2 yo son Depression Screening PHQ-2 (2015 Edition) Little interest or pleasure in doing things?: Not at all Feeling down, depressed, or hopeless?: N ot at all Total Score: 0 Examination Category Sub-Category Detail Notes Category Not es General Examinations GENERAL APPEARANCE: alert a nd oriented, in no acute distress EYES: conjunctiva normal, sclera non-icteric EARS: NOSE: THROAT: CARDIO: regular rate and rhy thm, S1, S2 normal LUNGS: clear to auscultatio n bilaterally ABDOMEN: soft, nontender SKIN: left knott red scaby lesion with surrounding redness no warmth no drainage BACK: MUSCULOSKELETAL: Gait and station nor mal LYMPH NODES:
--- OUTSIDE RECORDS SUMMARY | 2025-01-07 05:54 | XMS_ITS ---
Author Organization [facility] in [place] Address [address] [place] [address] Care Team Providers Care Logistics Project Manager Name Role Phone Lavinia Soto Primary Care Provider [phone] REASON FOR VISIT Labs- no answer med records Encounters Encounter Location Date Provider Diagnosis [facility] [address] [facility] [place] [address] 01/07/2025 Lavinia Soto Plan Of Treatment No Information Progress Notes * Eunice SANTOSOB:2000 (24 yo F)Acc No.[id number]:01/07/2025 Patient: Lynne DIALLO :2000 A ge:24 Y S ex:Female Address:[address] [place], [address] * true * Date: Generated for Yonnyi alyssa/Favanessag/eTransmitting on: 0 01/20/2025 02:31 PM EDT
--- OUTSIDE RECORDS SUMMARY | 2025-01-10 05:29 | XMS_ITS ---
Author Organization [facility] in [place] Address [address] [place] [address] Care Team Providers Care Independent Producer Name Role Phone Brittany Lavinia Primary Care Provider REASON FOR VISIT possible atb reaction Medications Medication SIG (Take, Route, Fr equency, Duration) Notes Start Date End Date Status Cephalexin 500 MG 2 capsule Orally BID for 7 days 01/10/2025 Active Encounters Encounter Location Date Provider Diagnosis [facility] [address] [place] [address] 01/10/2025 Lavinia Soto Cellulitis L03.90 Assessments Encounter Date Diagnosis (ICD Code) Assessment Notes Treatment Notes Treatment Clinical Notes Section Notes 01/10/2025 Cellulitis (ICD-10 - L03.90) Plan Of Treatment Medication Medication Name Sig Start Date Stop Date Notes Cephalexin 500 MG 2 capsule Orally BID for 7 days 01/11/20 Bactrim DS 800-160 MG 1 tablet Orally BID 01/07/2025 Cipro 500 MG 1 tablet Orally every 12 hrs 01/07/2025 Progress Notes * Eunice SANTOSOB:2000 (24 yo F)Acc No.[id number]:01/10/2025 Patient: Lynne DIALLO :2000 A ge:24 Y S ex:Female Address:[address] [facility] [place], [address] * Refills Stop Cipro Tablet, 500 MG, Orally, 1 tablet, every 12 hrs Stop Bactrim DS Tablet, 800-160 MG, Orally, 1 tablet, BID Start Cephalexin Capsule, 500 MG, Orally, 28 Capsule, 2 capsule, BID, 7 days, Refills=0 Subjective: * Chief Complaints: * P ossible atb reaction * Medical History: * Surgical History: * Hospitalization/Major Diagno stic Procedure: * Medications: Objective: * Vitals: * Physical Examination: Assessment: * Assessment: 1. Meliza armendariz - L03.90 Plan: * Treatment: 2. O thers Start Cephalexin Capsule, 500 MG, 2 capsule, Orally, BID, 7 days, 28 Capsule, Refills 0. * Procedure Codes: * true * Date: Generated for Corey shah/Abrahan/Maribellitting on: 0 01/20/2025 02:31 PM EDT
--- OUTSIDE RECORDS SUMMARY | 2025-01-10 09:00 | XMS_ITS ---
Author Organization [facility] in [place] Address [address] [place] [address] Care Team Providers Care Poultry Breeder Name Role Phone Brittany Lavinia Primary Care Provider REASON FOR VISIT review labs Encounters Encounter Location Date Provider Diagnosis [facility] [address] [place] [address] 01/10/2025 Lavinia Soto Fatigue R53.83 Assessments Encounter Date Diagnosis (ICD Code) Assessment Notes Treatment Notes Treatment Clinical Notes Section Notes 01/10/2025 Fatigue (ICD-10 - R53.83) Plan Of Treatment Pending Test Test Name Order Date CMP - Comprehensive Metabolic Panel 12/18 THYROID PANEL (T4/TSH/FREE T3) Progress Notes * Eunice SANTOSOB:2000 (24 yo F)Acc No.[id number]:01/10/2025 Patient: Lynne DIALLO :2000 A ge:24 Y S ex:Female Address:[address] [place], [address] Subjective: * Chief Complaints: * R eview labs * Medical History: * Surgical History: * Hospitalization/Major Diagno stic Procedure: * Medications: Objective: * Vitals: * Physical Examination: Assessment: * Assessment: 1. F atigue - R53.83 (Primary) Plan: * Treatment: * Procedure Codes: * true * Date: Generated for Corey shah/Abrahan/Milena on: 0 01/20/2025 02:31 PM EDT
--- OUTSIDE RECORDS SUMMARY | 2025-01-16 16:23 | XMS_ITS | Continuity of Care Document ---
Author Organization [facility] Address [address] [place] [address] Phone Care Team Providers Care Flower Cheniller Name Role Phone NO FAMILY, PHYSICIAN Primary Care Provider Annabel Schwartz APRN Attending Provider Konrad Awad PA-C Emergency Provider [phone] Lavinia Soto Primary Care Provider Care Teams Patient Care Team Team Status: Active Member Role Status Dates SHANNAN Shabazz Primary Care Provider Active Visit Care Team Team Status: Inactive Member Role Status Dates PHYSICIAN NO FAMILY Primary Care Provider Active Start: December 17, 2024 End: December 17, 2024 Annabel Pugh APRN Attending Provider Active Start: December 17, 2024 End: December 17, 2024 Patient Care Team Team Status: Inactive Member Role Status Dates Konrad Awad PA-C Emergency Provider Active Start: January 16, 2025 End: January 16, 2025 SHANNAN Shabazz Primary Care Provider Active Start: January 16, 2025 End: January 16, 2025 Chief Complaint and Reason for Visit Chief Complaint Admit Date Poss infected bug bite on left lower leg December 17, 2024 12:16pm bilat leg pain January 16, 2025 2: 21pm Reason for Visit Admit Date Cellulitis of left leg December 17, 2024 12:16pm Allergies, Adverse Reactions, Alerts Allergen Type Severity Reaction Last Updated Verified Status codeine Allergy Unknown vomiting January 16, 2025 2:43pm Yes Active Social History Smoking Status Status Start Date End Date Date of Observa tion Never smoked tobacco (finding) January 16, 2025 4:11pm Observation Status Observation Response Date of Response Legal Sex Female (finding) Sex Assigned At Female June [birth year] Status N January 16 Family History Relationship Condition Age at Onset Recorded Date/T radames father Hypertension Unknown Problems Active Problems Medical Problem Onset Date Status Cellulitis of left leg Unknown Active Medications Medication Status Dose Units Route Directions Qty Days St art Date Stop Date End Date Instructions Adherence Clindamycin Hcl (Cleocin Hcl) 300 mg capsule Discont inued 300 MG PO Three times daily 06 12January 16, 2025 12:00a m Augus t 2024 6:29p m Cephalexin 500 mg capsule Active 1000 MG PO Twice daily 13 12January 16, 2025 12:00a m Complies with drug therapy Phentermine 37.5 mg tablet Active 37.5 MG PO Daily December 17, 2024 12:00a m Complies with drug therapy Metformin 500 mg tablet extended release 24 hr Active 1000 MG PO Daily December 17, 2024 12:00a m Complies with drug therapy Cephalexin 500 mg capsule Discont inued 500 MG PO Three times daily 06 12December 17, 2024 12:00a m Augus 2024 6:29p m Relevant Diagnostic Tests and/or Laboratory Data Laboratory Results Test Collection Date/Time Result Date/Time Result Interpretation Reference Range Result Comment Performing Site Correcte d White Blood Count January 16, 2025 4:18pm January 16, 2025 4:39pm 8.2 10*3/uL 3.8-11.6 [facility] [id number] [address] [facility] [address] Uncorrec frank WBC Count January 16, 2025 4:18pm January 16, 2025 4:39pm 8.2 10*3/uL 3.8-11.6 [facility] [id number] [address] [facility] [address] Red Blood Count January 16, 2025 4:18pm January 16, 2025 4:39pm 5.18 10*6/uL Above high normal 3.60-5.00 [facility] [id number] [address] [facility] [address] Hemoglob in January 16, 2025 4:18pm January 16, 2025 4:39pm 14.3 g/dL 11.8-15.4 [facility] [id number] [address] [facility] [address] Hematocr it January 16, 2025 4:18pm January 16, 2025 4:39pm 42.1 % 34.0-46.4 [facility] [id number] [address] [facility] [address] Mean Corpuscu lar Volume January 16, 2025 4:18pm January 16, 2025 4:39pm 81.3 fL 80-100 [facility] [id number] [address] [facility] [address] Mean Corpuscu lar Hemoglob in January 16, 2025 4:18pm January 16, 2025 4:39pm 27.7 pg 24.7-34.3 [facility] [id number] [address] [facility] [address] Mean Corpuscu lar Hemoglob in Concent January 16, 2025 4:18pm January 16, 2025 4:39pm 34.1 g/dL 32.0-35.0 [facility] [id number] [address] [facility] [address] Red Cell Distribu tion Width January 16, 2025 4:18pm January 16, 2025 4:39pm 13.5 % 11.9-15.3 [facility] [id number] [address] [facility] [address] Platelet Count January 16, 2025 4:18pm January 16, 2025 4:39pm 347 10*3/uL 150-450 [facility] [id number] [address] [facility] [address] Mean Platelet Volume January 16, 2025 4:18pm January 16, 2025 4:39pm 7.0 fL 6.3-10.7 [facility] [id number] [address] [facility] [address] Monocyte Distribu tion Width January 16, 2025 4:18pm January 16, 2025 4:39pm 18.70 % 0.00-20.00 [facility] [id number] [address] [facility] [address] Neutroph ils (%) (Auto) January 16, 2025 4:18pm January 16, 2025 4:39pm 66.2 % . [facility] [id number] [address] [facility] [address] Lymphocy sierra (%) (Auto) January 16, 2025 4:18pm January 16, 2025 4:39pm 27.0 % . [facility] [id number] [address] [facility] [address] Monocyte s (%) (Auto) January 16, 2025 4:18pm January 16, 2025 4:39pm 5.0 % . [facility] [id number] [address] [facility] [address] Eosinoph ils (%) (Auto) January 16, 2025 4:18pm January 16, 2025 4:39pm 1.3 % . [facility] [id number] [address] [facility] [address] Basophil s (%) (Auto) January 16, 2025 4:18pm January 16, 2025 4:39pm 0.5 % . [facility] [id number] [address] [facility] [address] Nucleate d RBC Relative Count (auto) January 16, 2025 4:18pm January 16, 2025 4:39pm 0.2 /100{WBC} 0-0.5 [facility] [id number] [address] [id number] Neutroph ils # (Auto) January 16, 2025 4:18pm January 16, 2025 4:39pm 5.4 10*3/uL 1.8-7.7 [facility] [id number] [address] [facility] [address] Lymphocy sierra # (Auto) January 16, 2025 4:18pm January 16, 2025 4:39pm 2.2 10*3/uL 1.00-4.8 [facility] [id number] [address] [facility] [address] Monocyte s # (Auto) January 16, 2025 4:18pm January 16, 2025 4:39pm 0.4 10*3/uL 0.0-0.8 [facility] [id number] [address] [id number] Eosinoph ils # (Auto) January 16, 2025 4:18pm January 16, 2025 4:39pm 0.1 10*3/uL 0.0-0.45 [facility] [id number] [address] [facility] [address] Basophil s # (Auto) January 16, 2025 4:18pm January 16, 2025 4:39pm 0.0 10*3/uL 0.0-0.2 [facility] [id number] [address] [place] [address] Erythroc yte Sediment ation Rate January 16, 2025 4:18pm January 16, 2025 5:06pm 32 mm/hr Above high normal 0-19 [facility] [id number] [address] [facility] [address] Urine HCG, Qualitat aimee January 16, 2025 3:46pm January 16, 2025 4:28pm Negative [facility] [id number] [address] [place] [address] Glucose Level January 16, 2025 4:18pm January 16, 2025 5:01pm 86 mg/dL 70-100 ADA recommended reference rangeRandom Glucose Reference Range is dependent on time and content of last meal. Glucose of more than 200 mg/dL in a nonstressed , ambulatory subject supports the diagnosis of Diabetes Mellitus. [facility] [id number] [address] [facility] [address] Blood Urea Nitrogen January 16, 2025 4:18pm January 16, 2025 5:01pm 11 mg/dL 7-25 [facility] [id number] [address] [place] [address] Creatini ne January 16, 2025 4:18pm January 16, 2025 5:01pm 0.82 mg/dL 0.60-1.20 [facility] [id number] [address] [place] [address] Estimate d GFR (CKD-EPI ) January 16, 2025 4:18pm January 16, 2025 5:01pm > 60.0 mL/Min [facility] [id number] [address] [facility] [address] Sodium Level January 16, 2025 4:18pm January 16, 2025 5:01pm 138 mmol/L 136-145 [facility] [id number] [address] [facility] [address] Potassiu m Level January 16, 2025 4:18pm January 16, 2025 5:01pm 4.2 mmol/L 3.5-5.1 [facility] [id number] [address] [facility] [address] Chloride Level January 16, 2025 4:18pm January 16, 2025 5:01pm 101 mmol/L 98-107 [facility] [id number] [address] [place] [id number] Carbon Dioxide Level January 16, 2025 4:18pm January 16, 2025 5:01pm 30.2 mmol/L 21.0-31.0 [facility] [id number] [address] [id number] Anion Gap January 16, 2025 4:18pm January 16, 2025 5:01pm 11.0 mEq/L 6.0-15.0 [facility] [id number] [address] [id number] Calcium Level January 16, 2025 4:18pm January 16, 2025 5:01pm 9.9 mg/dL 8.6-10.3 [facility] [id number] [address] [facility] [address] Total Protein January 16, 2025 4:18pm January 16, 2025 5:01pm 7.6 g/dL 6.4-8.9 [facility] [id number] [address] [facility] [address] Albumin January 16, 2025 4:18pm January 16, 2025 5:01pm 4.6 g/dL 3.5-5.7 [facility] [id number] [address] [facility] [address] Globulin January 16, 2025 4:18pm January 16, 2025 5:01pm 3.0 g/dL [facility] [id number] [address] [place] [id number] Albumin/ Globulin Ratio January 16, 2025 4:18pm January 16, 2025 5:01pm 1.5 [facility] [id number] [address] [place] [id number] Total Bilirubi n January 16, 2025 4:18pm January 16, 2025 5:01pm 0.3 mg/dL 0.3-1.0 [facility] [id number] [address] [place] [address] Aspartat e Amino Transf (AST/SGO T) January 16, 2025 4:18pm January 16, 2025 5:01pm 20 U/L 13-39 [facility] [id number] [address] [place] [address] Alanine Aminotra nsferase (ALT/SGP T) January 16, 2025 4:18pm January 16, 2025 5:01pm 26 U/L 7-52 [facility] [id number] [address] [place] [address] Alkaline Phosphat ase January 16, 2025 4:18pm January 16, 2025 5:01pm 100 U/L 34-104 [facility] [id number] [address] [place] [address] Total Creatine Kinase January 16, 2025 4:19pm January 16, 2025 6:18pm 51 U/L 30-223 [facility] [id number] [address] [place] [address] Troponin I High Sensitiv ity January 16, 2025 4:19pm January 16, 2025 6:25pm 3 ng/L 0-15 The Troponin units of report have been changed to meet the Chest Pain Accreditati on requirement , element EC5.M1l2. Troponin units are changed from pg/ml to ng/L. Also, the decimal is removed and results are in whole numbers. [facility] [id number] [address] [place] [address] C-Reacti ve Protein, Quantita tive January 16, 2025 4:18pm January 16, 2025 5:01pm 1.1 mg/dL Above high normal 0.0-0.5 [facility] [id number] [address] [place] [address] Pharmacy Creatini ne Clearanc e (Chem January 16, 2025 4:18pm January 16, 2025 5:01pm 150.43 [facility] [id number] [address] [place] [address] Vital Signs Vital Reading Result Reference Range Collection Date/Time Height 62 [in_i] December 17 12:26pm Weight 154.22 kg December 17 12:26pm Body Temperature 98 [degF] 97.6-99.0 December 17, 2024 12:26pm Heart Rate 115 /min 60-100 December 17 12:26pm Respiratory rate 18 /min -December 17, 2024 12:26pm Oxygen saturation by Pulse oximetry 98 % 95-100 December 17, 2024 12: 26pm BP Systolic 131 mm[Hg] 100-140 December 17 12:26pm BP Diastolic 82 mm[Hg] 60-100 December 17 12:26pm BMI (Body Mass Index) 62.1 kg/m2 December 17, 2024 12:26pm Height 62 [in_i] January 16 2:54pm Weight 152.00 kg January 16 2:54pm Body Temperature 98.6 [degF] 97.6-99.0 December 2:54pm Heart Rate 97 /min 60-100 January 16 8:14pm Respiratory rate 18 /min -December 8:14pm Oxygen saturation by Pulse oximetry 100 % 95-100 January 16, 2025 8: 14pm BP Systolic 132 mm[Hg] 100-140 January 16 8:14pm BP Diastolic 83 mm[Hg] 60-100 January 16 8:14pm Advance Directives Advance Directive Response Recorded Date/ Time Advance Directives No December 17 025 12:14pm Insurance Providers Guarantor Lynne Santos Address [address] [facility] [address] Contact Info. Home Phone: Payer Policy Id Subscriber's Name Subscriber Id Effectiv e Date Expiration Date Parvez CHILEL [id number] Mart Santos [id number] Encounters Encounter Location(s) Arrival/Admit Date Discharge/Depart Date Provider(s) Departed Physician/Prov ider Office Visit -[facility] [place] December 17, 2024 12:16pm December 17, 2024 12:38pm Sofi Winters APRN Departed Emergency -Emergency Room January 16, 2025 2:21pm January 16, 2025 8:18pm Recent Diagnosis Onset Date Admit Date Cellulitis of left leg Unknown December 12:16pm Assessments Diagnosis Onset Date Resolution Status Admit Date Cellulitis of left leg acute Au 2024 12:16pm Plan of Treatment Author Annabel Pugh [facility] Authored December 17, 2024 12: 53pm Mild secondary cellulitis. W ill treat with Keflex. Finish entire course. Elevation encouraged. May use cool compresses for discomfort. Follow-up with PCP if not gradually improving over the next 4 to 5 days, sooner if significantly spreading erythema, warmth, develops fever. Patient verbalized understanding. Future Tests Future scheduled test information is unavailable Pending Tests Pending diagnostic test information is unavailable Future Visits Future appointment information is unavailable Referrals to Other Providers Reason for Referral Referral Start Date Provider Provider Contact Information [facility] Phone: [address] [facility] [address] NON STAFF [address] [facility] [address] Future Procedures Future procedure information is unavailable Future Medications Future medication information is unavailable Patient Instructions Instruction Admit Date Cellulitis (skin infection) in adults - ED discharge instructions January 16, 2025 2:21pm Hospital Discharge Instructions Additional Instructions It is very important that you follow up with your primary care provider in the next 2-3 days unless instructed to do otherwise. If you do not have a primary care provider, you can contact [facility] and ask about being established for primary care services. If you require specialist follow up, such as with an orthopedic physician, head control clerk, urologist, or other medical specialty, you should contact the specialty clinic as soon as possible to schedule a follow up appointment. If you are established with a specialist, you can contact your preferred physician for follow up. If you are not already established with the specialist you need, you may have contact information provided to you with these discharge instructions. If you are being prescribed medications, take exactly as prescribed. Antibiotics, if prescribed, should be taken until the entire course is completed. You should not have left over antibiotics. Continue to take any previously prescribed home medications unless instructed otherwise. If you are experiencing fever or mild to moderate pain, you should first take Tylenol or ibuprofen available [id number]. Medications, if prescribed to treat pain from the emergency department, are intended to provide relief for severe pain that is not relieved by other methods of pain relief, you should use these medications cautiously as many are known to cause sedation/sleepiness, increased risk for falls, and other effects such as constipation. If your symptoms worsen please return to the ED or if you have any other concerns
--- OUTSIDE RECORDS SUMMARY | 2025-01-18 09:30 | XMS_ITS | Encounter Summary ---
Author Organization [facility] Address [address] [place] [address] Care Team Providers Care Bellperson Name Role Phone Unavailable Primary Care Provider Unavailabl e Reason for Visit * Reason Comments encounter for weight management Encounter Details Date Type Department Care Team ([facility] st Contact Info) Description 01/18/2025 9:30 AM EDT Office Visit [facility] [address] [place] [id number] Geeta Fuchs PA [address] [place] [address] Encounter for weight management Social History Tobacco Use Types Packs/Day Years Used Date Smoking Tobacco: Never Smokeless Tobacco: Never Alcohol Use Standard Drinks/Week Comments Never 0 (1 standard drink = 0.6 oz pur e alcohol) Comments No Sex and Gender Information Value Date Recorded Sex Assigned at Not on file Legal Sex Female 11:15 PM EDT Gender Identity Not on file Sexual Orientation Not on file documented as of this encounter Last Filed Vital Signs Vital Sign Reading Time Taken Comments Blood Pressure 110/70 01/18/2025 9:50 AM EDT Pulse - - Temperature - - Respiratory Rate - - Oxygen Saturation - - Inhaled Oxygen Concentration - - Weight 152 kg (334 lb 1.6 oz) 01/18/2025 9:50 AM EDT Height - - Body Mass Index 61.11 12/21/2024 10:19 AM EDT documented in this encounter Progress Notes * LUZ Amos - 01/18/2025 9:30 AM EDT Reason for Appointment: Patient ID: Lynne Santos is a 24 y.o. female who presents for encounter for weight management Patient presents today for a weight management consultation. Patient has been prescribed Adipex andshe is here for her 3rd prescription. Today's Vitals: Estimated body mass index is 61.11 kg/m?? as calculated from the following: Height as of 12/21/24: 5' 2 . Weight as of this encounter: 334 lb 1.6 oz. Previous Weight/BMI: Wt Readings from Last 3 Encounters: 01/18/25 334 lb 1.6 oz 12/21/24 336 lb 11/23/24 348 lb BMI Readings from Last 3 Encounters: 01/18/25 61.11 kg/m?? 12/21/24 61.46 kg/m?? 11/23/24 63.65 kg/m?? Allergies as of 01/18/2025 - Reviewed 01/18/2025 Allergen Reaction Noted Bactrim [sulfamethoxazole-trimethoprim] Itching 01/18/2025 Ciprofloxacin Itching 01/18/2025 Codeine 10/10/2022 Past Medical History: Diagnosis Date Abnormal weight gain Cellulitis Encounter for gynecological examination (general) (routine) without abnormal findings Hearing loss Morbid obesity with BMI of 45.0-49.9, adult ([facility]) PCOS (polycystic ovarian syndrome) Weight loss Past Surgical History: Procedure Laterality Date SECTION, LOW TRANSVERSE 02/18/2023 PAP SMEAR 05/19/2022 TONSILLECTOMY WISDOM TOOTH EXTRACTION Review of Systems: Review of Systems Constitutional: Negative. HENT: Negative. Eyes: Negative. Respiratory: Negative. Cardiovascular: Negative. Gastrointestinal: Negative. Genitourinary: Negative. Musculoskeletal: Negative. Skin: Negative. Neurological: Negative. All other systems reviewed and are negative. Hematological: Negative. Endocrine: Negative. Allergic/Immunologic: Negative. Objective Physical Exam Constitutional: Appearance: Normal appearance. She is well-developed. Cardiovascular: Rate and Rhythm: Normal rate and regular rhythm. Pulmonary: Effort: Pulmonary effort is normal. Breath sounds: Normal breath sounds. Abdominal: General: Bowel sounds are normal. There is no distension. Palpations: Abdomen is soft. Tenderness: There is no abdominal tenderness. There is no guarding or rebound. Musculoskeletal: General: No swelling. Normal range of motion. Right lower leg: No edema. Left lower leg: No edema. Neurological: Mental Status: She is alert and oriented to person, place, and time. Skin: General: Skin is warm and dry. Psychiatric: Mood and Affect: Mood normal. Behavior: Behavior normal. Vitals and nursing note reviewed. Exam conducted with a solution design and analysis manager present. Assessment/Plan Encounter Diagnosis Name Primary? Encounter for weight management Adipex: Patient presents today for 3rd Adipex prescription. Patient desires additional weigh loss and she is currently taking metformin along with working out to achieve further results. Weight and blood pressure has been captured and I have discussed/reiterated the importance of keeping a food journal, proper nutrition/diet, and exercise regimen. Patient verbalized understanding. Patient has lost more than 5% of her initial body weight Follow Up: Patient is to return to the office in 1 month for further evaluation to assess patient progress. Weight and blood pressure will need to be obtained in order for patient to receive 4th Adipex prescription. Documented by: Giselle Brown LPN on behalf of LUZ Amos documented in this encounter Plan of Treatment Upcoming Encounters Date Type Department Care Team (Late st Contact Info) Description 04/12/2025 9:30 AM EST Office Visit [facility] [address] [address] Geeta Fuchs PA [address] [place] [address] documented as of this encounter Procedures Procedure Name Priority Date/Time Associated Diagnosis Comments PAP SMEAR Routine 10/25/2024 12:00 AM EDT documented in this encounter Results * Pap Smear (10/25/2024 12:00 AM EDT) Swab Cervical swab / Unknown us Leonid Mike DO LAB CYTOLOGY ORDERABLES Final Re sult EXTERNAL LAB documented in this encounter Visit Diagnoses Diagnosis Encounter for weight management documented in this encounter
--- OUTSIDE RECORDS SUMMARY | 2025-01-20 05:00 | XMS_ITS ---
Author Organization [facility] in [place] Address [address] [place] [address] Care Team Providers Care Tire Stripper Name Role Phone Lavinia Soto Primary Care Provider Allergies Allergen (clinical drug ingredient) Drug/Non Drug Allergy documented on EMR Reaction Allergy Type Onset Date Status codeine Codeine vomiting Drug Allergy Active Reason For Referral Reason PCOS , patient reque sting referral Diagnosis 1 PCOS (polycystic ova jaret syndrome) (E28.2) Referral Organization [facility] Medicine Referring Provider First Name Lavinia Referring Provider Last Name Brittany Referring Provider Speciality Family Med icine Referred Provider Lj Bettencourt Referred Provider Specialty Endocrinolog y Referral Priority Routine REASON FOR VISIT [facility] ER on friday FU-Cellulitis still on antibiotics Medications Medication SIG (Take, Route, Fr equency, Duration) Notes Start Date End Date Status metFORMIN HCl 1000 MG 1 tablet with a me al Orally Once a day Active Adipex-P 37.5 MG 1 tablet before madina kfast Orally Once a day Active Cephalexin 500 MG 2 capsule Orally BID for 7 days 01/10/2025 Active Social History Tobacco Use: Social History Observation Description Date Details (start date - stop date) Never Smoker NA - NA Tobacco Control (Standard) Question Answer Notes Tobacco use: Nonsmoker AUDIT-C (Standard) Question Answer Notes Did you have a drink containing alcohol in the p ast year? No Points 0 Interpretation Negative Vital Signs Blood pressure systolic 120 mm Hg 01/21/20 25 Blood pressure diastolic 70 mm Hg 025 Height 62 in 01/20/2025 Weight 334 lbs 01/20/2025 BMI 61.08 kg/m2 01/20/2025 Encounters Encounter Location Date Provider Diagnosis [facility] [address] [facility] [place] [address] 01/20/2025 Lavinia Soto Cellulitis L03.90 an d PCOS (polycystic ovarian syndrome) E28.2 Assessments Encounter Date Diagnosis (ICD Code) Assessment Notes Treatment Notes Treatment Clinical Notes Section Notes 01/20/2025 Cellulitis (ICD-10 - L03.90) 1 gm Rocephin IM today fu LARRY for midline, IV abx wound culture taken wants to avoid admission if possible, has 2 yo son she cares for 01/20/2025 PCOS (polycystic ovarian syndrome) (ICD-10 - E28.2) Plan Of Treatment Treatment Notes Assessment Notes Cellulitis 1 gm Rocephin IM today fu LARRY for midline, IV abx wound culture taken wants to avoid admission if possible, has 2 yo son she cares for Pending Test Test Name Order Date Culture, Wound 01/20/2025 CULTURE WOUND 01/20/2025 Referrals Referral Date Details 01/20/2025 01/20/2025, PCOS , p atient requesting referral, Lj Bettencourt Next Appt Details Follow Up: 1 Week,prn, Reaso n: Progress Notes * EUGENE EuniceOB:2000 (24 yo F)Acc No.[id number]:01/20/2025 Progress Note Patient: Lynne DIALLO Provider: Gregoria Soto ([facility]), GRIEF COUNSELOR :2000 A ge:24 Y S ex:Female Date:01/20/2025 [facility] [facility]-[id number] Check In:09:01 AM ESTCheck O ut:09:39 AM EST Subjective: * Chief Complaints: * 1 . [facility] ER on friday FU-Cellulitis still on antibiotics. * HPI: G eneral: Rut PCOS would like to see wound for 6 weeks, draining now, just opened few days ago ER weekend, added clindamycin to cephalexin 1gm Rocephin today wound culture LARRY mid line 2 gm Rocephin tomorrow per Dr Miller. * ROS: G eneral/Constitutional: Fever d enies. H eadache d enies. W eight loss?denies. O phthalmologic: Discharge d enies. E ye [...] kin: Rash d enies. S kin lesion(s) l eft knott, now draining some, not healed. * Active Problem List E28.2 PCOS (polycystic [...] breakfast Orally Once a day , Taking Cephalexin 500 MG Capsule 2 capsule Orally BID , Taking metFORMIN HCl 1000 MG Tablet 1 tablet with a meal Orally Once a day , Medication List reviewed and reconciled with the patient * Allergies: C odeine: vomiting. Objective: * Vitals: W t:334lbs, Ht: 62 in, BP:120/70mm Hg, BMI:61.08Index, Ht-cm: 157.48 cm, Wt-k.5 kg. * Examination: G eneral Examinations: GENERAL APPEARANCE: a lert and oriented, in no acute distress, morbidly obese. EYES: c onjunctiva normal, sclera non-icteric. NOSE: n ormal external appearance. LUNGS: c lear to auscultation bilaterally. CARDIO: r egular rate and rhythm, S1, S2 normal. MUSCULOSKELETAL: G ait and station normal. SKIN: a bscess left knott, red, with purple center now draining serous fluid non healing. Assessment: * Assessment: 1. C melissatis - L03.90 (Primary) 2 . P COS (polycystic ovarian syndrome) - E28.2 Plan: * Treatment: 2. P COS (polycystic ovarian syndrome) Referral To:Lj [facility]ocr[facility] Reason:PCOS , patient requesting referral * Preventive Medicine: Screenings/Counseling: B W[place] ACTION PLAN Above Normal BMI Follow-up D ietary management education, guidance, and counseling * Follow Up: 1 Week,prn * * Sign off status: Completed Visit Status: C HK (Check Out) true * Provider: Gregoria Soto ([facility])BIB Date: 01/20/2025 Generated for Corey shah/Abrahan/Maribellitting on: 01/20/2025 02:32 PM EDT History and Physical Notes * HPI (History of Present Illness) Category Sub-Category Detail Notes Category Not es General [facility] PCOS would like to see wound for 6 weeks, draining now, just opened few days ago ER weekend, added clindamycin to cephalexin 1gm Rocephin today wound culture LARRY mid line 2 gm Rocephin tomorrow per Dr Miller Examination Category Sub-Category Detail Notes Category Not es General Examinations GENERAL APPEARANCE: alert a nd oriented, in no acute distress, morbidly obese EYES: conjunctiva normal, sclera non-icteric EARS: NOSE: normal external appe arance THROAT: CARDIO: regular rate and rhy thm, S1, S2 normal LUNGS: clear to auscultatio n bilaterally ABDOMEN: SKIN: abscess left knott, r ed, with purple center now draining serous fluid non healing BACK: MUSCULOSKELETAL: Gait and station nor mal LYMPH NODES: Consultation Request Notes Referral Date Referring Provider Referred Provider Not es 01/20/2025 Lavinia Soto, Lj PCOS , levi ent requesting referral
--- OUTSIDE RECORDS SUMMARY | 2025-01-20 14:31 | XMS_ITS | Encounter Summary ---
Author Organization [facility] Address [address] [place] [address] Care Team Providers Care Calciminer Name Role Phone Unavailable Primary Care Provider Unavailabl e Encounter Details Date Type Department Care Team (Late Contact Info) Description 02/24/2023 Abstract ALLI LEGER [address] [facility] [place] [phone] Geeta Fuchs PA [address] [facility] [address] [place], [place] [address] Social History Tobacco Use Types Packs/Day Years [...] on file documented as of this encounter Plan of Treatment Upcoming Encounters Date Type Department Care Team (Late Contact Info) Description 04/12/2025 9:30 AM EST Office Visit ALLI LEGER [address] [facility] [place] [phone] Geeta Fuchs PA [address] [facility] [address] [place], [facility]11 documented as of this encounter Visit Diagnoses Not on filedocumented in this encounter
--- OUTSIDE RECORDS SUMMARY | 2025-01-20 14:31 | XMS_ITS | Encounter Summary ---
Author Organization [facility] Address [address] [facility] [place] [address] Care Team Providers Care Tin Recovery Worker Name Role Phone Unavailable Primary Care Provider Unavailabl e Encounter Details Date Type Department Care Team (Late Contact Info) Description 02/12/2023 Clinisync Result Encounter [facility] External Department Unsolicited Oxana Mckeon DO [address] [facility] [place] [address] Social History Tobacco Use Types Packs/Day Years Used Date Smoking Tobacco: Never Smokeless Tobacco: Never Alcohol Use Standard Drinks/Week Comments Never 0 (1 standard drink = 0.6 oz pur e alcohol) Comments Yes Sex and Gender Information Value Date Recorded Sex Assigned at Not on file Legal Sex Female 11:15 PM EDT Gender Identity Not on file Sexual Orientation Not on file documented as of this encounter Plan of Treatment Upcoming Encounters Date Type Department Care Team ([facility] Contact Info) Description 04/12/2025 9:30 AM EST Office Visit ALLI [place] OBGYN [address] [facility] [place] [address] Geeta Fuchs PA [address] [facility] [place] [address] documented as of this encounter Procedures Procedure Name Priority Date/Time Associated Diagnosis Comments US OB GROWTH 02/12/2023 1:18 PM EDT documented in this encounter Results * US OB GROWTH (02/12/2023 1:18 PM EDT) Anatomical Region Laterality Modality Other 02/12/2023 1:18 PM EDT Narrative 02/12/2023 1:18 PM EDT The [address] [address] Ultrasound Report Signed Patient: ALPA SANTOS MR#: [id number] : 2000 Acct:[id number] Age/Sex: 22 / F ADM Date: 02/12/23 Loc: [facility] 250-[address]: Oxana Mckeon D.O. Ordering Physician: Oxana Mckeon D.O. Date of Service: 02/12/23 Procedure(s): US OB growth Accession Number(s): [id number] cc: Oxana Mckeon D.O.; Physician,Non-Staff Sury The [address] [address] Patient Name: ALPA SANTOS MRN: [facility]:[id number] date: 2000 Sex: F Assigned Patient Location: [facility] Current Patient Location: [facility] Accession/Order Number: [id number] Exam Date: 02/12/2023 12:30 Report Date: 02/12/2023 13:18 At the request of: OXANA MCKEON Procedure: US OB growth EXAM: US OB growth, US OB BPP w non-stress; [id number], [id number] HISTORY: Decreased motion. COMPARISON: growth ultrasound 01/08/2023. FINDINGS: A single intrauterine is identified. Presentation is cephalic. BPD 8.91 cm = 36 weeks 0 days, 15.8 percentile. HC 31.86 cm = 35 weeks 6 days, less than 3 percentile (previously 10.6 percentile) AC 34.51 cm = 38 weeks 3 days, 69.3 percentile FL 7.01 cm = 36 weeks 0 days, 5.9 percentile. Composite gestational age is 36 weeks 4 days (+/- 2 weeks 4 days). Estimated weight is 3164 +/- 474.66 g. CI = 82.07 (70.0-86.0) HC/AC = 0.92 (0.92 - 1.06) EFW Percentile: 35.4%, previously 55.4% Biophysical profile: Movement: 2 Tone: 2 Breathin Fluid: 2 Total: 12/24 heart rate measures 131 bpm. Amniotic fluid index (JESS) measures 16.31 cm. Cervix appears closed. US/US OB growth IMPRESSION: 1. Single living intrauterine with interval growth. 2. Estimated gestational age is 36 w 4 d based on this exam, concordant with provided gestational age of 38 weeks 3 days when accounting for the confidence interval of +/- 2 weeks 4 days. 3. Estimated weight of 3164 g. 4. Normal amniotic fluid index. 5. Normal biophysical profile. 6. Head circumference is less than 3 percentile. Electronically authenticated by: DAVID CERVANTES Date: 02/12/2023 13:18 Dictated By: David Cervantes Signed By: 02/12/23 1320 DD/ 1318 TD/TT: Managing Consultant: Procedure Note Radiology, Radiologist, MD - 02/12/2023 [place] [address] Ultrasound Report Signed Patient: ALPA SANTOS EMR#: [id number] : 2000Acct:[id number] Age/Sex: FADM Date: 02/12/23 Loc: [facility] 250-[address]: Oxana Mckeon D.O. Ordering Physician: Oxana Mckeon D.O. Date of Service: 02/12/23 Procedure(s): US OB growth Accession Number(s): [id number] cc: Oxana Mckeon D.O.; Physician,Non-Staff M.DKhurram The [place] [id number] Patient Name: ALPA SANTOS MRN: [id number] date: 2000 Sex: F Assigned Patient Location: [facility] Current Patient Location: [facility] Accession/Order Number: [id number] Exam Date: 02/12/2023 12:30 Report Date: 02/12/2023 13:18 At the request of: OXANA MCKEON Procedure: US OB growth EXAM: US OB growth, US OB BPP w non-stress; [id number], [id number] HISTORY: Decreased motion. COMPARISON: growth ultrasound 01/08/2023. FINDINGS: A single intrauterine is identified. Presentation is cephalic. BPD 8.91 cm = 36 weeks 0 days, 15.8 percentile. HC 31.86 cm = 35 weeks 6 days, less than 3 percentile (previously 10.6 percentile) AC 34.51 cm = 38 weeks 3 days, 69.3 percentile FL 7.01 cm = 36 weeks 0 days, 5.9 percentile. Composite gestational age is 36 weeks 4 days (+/- 2 weeks 4 days). Estimated weight is 3164 +/- 474.66 g. CI = 82.07 (70.0-86.0) HC/AC = 0.92 (0.92 - 1.06) EFW Percentile: 35.4%, previously 55.4% Biophysical profile: Movement: 2 Tone: 2 Breathin Fluid: 2 Total: 12/24 heart rate measures 131 bpm. Amniotic fluid index (JESS) [id number] cm. Cervix appears closed. US/US OB growth IMPRESSION: 1. Single living intrauterine with interval growth. 2. Estimated gestational age is 36 w 4 d based on this exam, concordantwith provided gestational age of 38 weeks 3 days when accounting for theconfidence interval of +/- 2 weeks 4 days. 3. Estimated weight of 3164 g. 4. Normal amniotic fluid index. 5. Normal biophysical profile. 6. Head circumference is less than 3 percentile. Electronically authenticated by: DAVID CERVANTES Date: 02/12/2023 13:18 Dictated By: David Cervantes Signed By:02/12/23 1322 DD/ 1318 TD/TT: Managing Consultant: us Oxana Mckeon DO [facility] Final Result documented in this encounter Visit Diagnoses Not on filedocumented in this encounter
--- OUTSIDE RECORDS SUMMARY | 2025-01-20 14:31 | XMS_ITS | Encounter Summary ---
Author Organization [facility] Address [address] [place] [address] Care Team Providers Care Stretch Box Tender Name Role Phone Unavailable Primary Care Provider Unavailabl e Encounter Details Date Type Department Care Team (Late Contact Info) Description 12/30/2022 Abstract ALLI LEGER [address] [facility] [place] [address] Leonid Mckeon DO [address] [facility] [address] [place], [place] [address] Social History Tobacco Use Types Packs/Day Years [...] AM EST Office Visit ALLI LEGER [address] [facility] [place] [address] Geeta Fuchs PA [address] [facility] [address] [place], [facility]11 documented as of this encounter Visit Diagnoses Not on filedocumented in this encounter
--- OUTSIDE RECORDS SUMMARY | 2025-01-20 14:31 | XMS_ITS | Encounter Summary ---
Author Organization [facility] Address [address] [place] [address] Care Team Providers Care Construction Carpenters Helper Name Role Phone Unavailable Primary Care Provider Unavailabl e Encounter Details Date Type Department Care Team (Late Contact Info) Description 02/20/2023 Abstract ALLI LEGER [address] [facility] [place] [address] Leonid Mckeon DO [address] [facility] [address] [place], [place] [address] Social History Tobacco Use Types Packs/Day Years [...] AM EST Office Visit ALLI LEGER [address] [facility] [place] [address] Geeta Fuchs PA [address] [facility] [address] [place], [facility]11 documented as of this encounter Visit Diagnoses Not on filedocumented in this encounter
--- OUTSIDE RECORDS SUMMARY | 2025-01-20 14:31 | XMS_ITS | Encounter Summary ---
Author Organization [facility] Address [address] [place] [address] Care Team Providers Care Cross Country Coach Name Role Phone Unavailable Primary Care Provider Unavailabl e Encounter Details Date Type Department Care Team (Late Contact Info) Description 02/12/2023 Clinisync Result Encounter [facility] External Department Unsolicited Oxana Mckeon DO [address] [facility] [place] [address] Social History Tobacco Use Types Packs/Day Years [...] Upcoming Encounters Date Type Department Care Team ([facility] Contact Info) Description 04/12/2025 9:30 AM EST Office Visit ALLI [place] OBGYN [address] [place] [address] Geeta Fuchs PA [address] [facility] [place] [address] documented as of this encounter Procedures Procedure Name Priority Date/Time Associated Diagnosis Comments US OB BPP W NON-STRESS 02/12/2023 1:18 PM EDT documented in this encounter Results * US OB BPP W NON-STRESS (02/12/2023 1:18 PM EDT) Anatomical Region Laterality Modality Other 02/12/2023 1:18 PM EDT Narrative 02/12/2023 1:18 PM EDT [address] [address] Ultrasound Report Signed Patient: ALPA SANTOS MR#: [id number] : 2000 Acct:[id number] Age/Sex: 22 / F ADM Date: 02/12/23 Loc: [facility] 250-[address]: Oxana Mckeon D.O. Ordering Physician: Oxana Mckeon D.O. Date of Service: 02/12/23 Procedure(s): US OB BPP w non-stress Accession Number(s): [id number] cc: Oxana Mckeon D.O.; Physician,Non-Staff Sury [address] [address] Patient Name: ALPA SANTOS MRN: [facility]:[id number] date: 2000 Sex: F Assigned Patient Location: [facility] Current Patient Location: [facility] Accession/Order Number: [id number] Exam Date: 02/12/2023 12:30 Report Date: 02/12/2023 13:18 At the request of: OXANA MCKEON Procedure: US OB BPP w non-stress EXAM: US OB growth, US OB BPP w non-stress; [id number], [id number] HISTORY: Decreased motion. COMPARISON: growth ultrasound 01/08/2023. [...] 16.31 cm. Cervix appears closed. US/US OB BPP w non-stress IMPRESSION: 1. Single living intrauterine with interval [...] Signed By: 02/12/23 1320 DD/ 1318 TD/TT: Project Management Director: Procedure Note Radiology, Radiologist, MD - 02/12/2023 [place] [address] Ultrasound Report Signed Patient: ALPA SANTOS EMR#: [id number] : 2000Acct:[id number] Age/Sex: 22 / FADM Date: 02/12/23 Loc: [facility] 250-[address]: Oxana Mckeon D.O. Ordering Physician: Oxana Mckeon D.O. Date of Service: 02/12/23 Procedure(s): US OB BPP w non-stress Accession Number(s): [id number] cc: Oxana Mckeon D.O.; Physician,Non-Staff M.DKhurram The [address] [address] Patient Name: ALPA SANTOS MRN: [id number] date: 2000 Sex: F Assigned Patient Location: [facility] Current Patient Location: [facility] Accession/Order Number: [id number] Exam Date: 02/12/2023 12:30 Report Date: 02/12/2023 13:18 At the request of: OXANA MCKEON Procedure: US OB BPP w non-stress EXAM: US OB growth, US OB BPP w non-stress; [id number], [id number] HISTORY: Decreased motion. COMPARISON: growth ultrasound 01/08/2023. [...] measures 131 bpm. Amniotic fluid index (JESS) .31 cm. Cervix appears closed. US/US OB BPP w non-stress IMPRESSION: 1. Single living intrauterine with interval [...] 13:18 Dictated By: David Cervantes Signed By:02/12/23 1320 DD/ 1318 TD/TT: Project Management Director: us Oxana Mckeon DO [facility] Final Result documented in this encounter Visit Diagnoses Not on filedocumented in this encounter
--- OUTSIDE RECORDS SUMMARY | 2025-01-20 14:31 | XMS_ITS | Encounter Summary ---
Author Organization [facility] Address [address] [place] [address] Care Team Providers Care Architectural Technologist Name Role Phone Unavailable Primary Care Provider Unavailabl e Encounter Details Date Type Department Care Team (Late Contact Info) Description 01/10/2023 Abstract [facility]I LEGER [address] [facility] [place] [address] Leonid Mckeon DO [address] [facility] [address] [place], [place] [address] Social History Tobacco Use Types Packs/Day Years [...] [address] [place] [place] [address] Geeta Fuchs PA [address] [facility] [address] [place], [facility]11 documented as of this encounter Visit Diagnoses Not on filedocumented in this encounter
--- OUTSIDE RECORDS SUMMARY | 2025-01-20 14:31 | XMS_ITS | Encounter Summary ---
Author Organization [facility] Address [address] [place] [address] Care Team Providers Care Group Marketing Vp Name Role Phone Unavailable Primary Care Provider Unavailabl e Encounter Details Date Type Department Care Team (Late Contact Info) Description 12/30/2022 Abstract ALLI LEGER [address] [facility] [address] Leonid Mckeon DO [address] [facility] [address] [place], [place] [address] Social History Tobacco Use Types Packs/Day Years [...] AM EST Office Visit ALLI LEGER [address] [address] Geeta Fuchs PA [address] [facility] [address] [place], [facility]11 documented as of this encounter Visit Diagnoses Not on filedocumented in this encounter
--- OUTSIDE RECORDS SUMMARY | 2025-01-20 14:31 | XMS_ITS | Encounter Summary ---
Author Organization [facility] Address [address] [place] [address] Care Team Providers Care Merchandise Adjustment Clerk Name Role Phone Unavailable Primary Care Provider Unavailabl e Encounter Details Date Type Department Care Team (Late Contact Info) Description 03/11/2023 Abstract ALLI LEGER [address] [facility] [place] [address] Leonid Mckeon DO [address] [facility] [address] [place], [place] [address] Social History Tobacco Use Types Packs/Day Years [...] [address] [facility] [place] [address] Geeta Fuchs PA [address] [facility] [address] [place], [facility]11 documented as of this encounter Visit Diagnoses Not on filedocumented in this encounter
--- OUTSIDE RECORDS SUMMARY | 2025-01-20 14:32 | XMS_ITS | Encounter Summary ---
Author Organization [facility] Address [address] [place] [address] Care Team Providers Care Traffic Expert Name Role Phone Lyla Lozoya DO Unavailable [phone] Encounter Details Date Type Department Care Team (Late Contact Info) Description 11/21/2022 Abstract ALLI LEGER [address] [facility] [place] [id number] Leonid Mckeon DO [address] [facility] [address] [place], [facility]11 Social History Tobacco Use Types Packs/Day Years Used Date Smoking Tobacco: Never Assessed Comments Yes Sex and Gender Information Value Date Recorded Sex Assigned at Not on file Legal Sex Female 11:15 PM EDT Gender Identity Not on file Sexual Orientation Not on file documented as of this encounter Plan of Treatment Upcoming Encounters Date Type Department Care Team (Late Contact Info) Description 04/12/2025 9:30 AM EST Office Visit [facility]I LEGER [address] [place] [address] Geeta Fuchs PA [address] [facility] [address] [place], [facility]11 documented as of this encounter Visit Diagnoses Not on filedocumented in this encounter Care Teams Traffic Expert Relationship Specialty Start Date End Date Lyla Lozoya DO [address] [place] [address] PCP - [employer] 11/1/21 7/31/ 23 documented as of this encounter
--- OUTSIDE RECORDS SUMMARY | 2025-01-20 14:32 | XMS_ITS | Clinical Summary ---
Author Organization [facility] Address [address] [place] [address] Care Team Providers Care Director Of Business Services Name Role Phone Unavailable Primary Care Provider Unavailabl e Allergies Active Allergy Reactions Criticality Noted Date Comments Sulfamethoxazole-Trimethoprim Itching 2024 Watery eyes Ciprofloxacin Itching 01/18/2025 Watery eyes Codeine 10/10/2022 Medications iron (Slow Iron) 18 MG ER tablet Iron Active metFORMIN XR (Glucophage-XR ) 500 MG 24 hr tabletIndicati ons:PCOS (polycystic ovarian syndrome) Take 2 tablets (1,000 mg) by mouth Daily Do not crush, chew, or split. 60 tablet 11 5 Active cephalexin (Keflex) 500 MG capsule Take 1,000 mg by mouth in the morning and 1,000 mg before bedtime. 5 Active clindamycin (Cleocin) 300 MG capsule Take 300 mg by mouth in the morning and 300 mg in the evening and 300 mg before bedtime. Active phentermine (Adipex-P) 37.5 MG tabletIndicati ons:Encounter for weight management Take 1 tablet (37.5 mg) by mouth in the morning. Take before meals. 90 tablet 5 04/18/20 25 Active metFORMIN XR (Glucophage-XR ) 500 MG 24 hr tabletIndicati ons:PCOS (polycystic ovarian syndrome) Take 1 tablet (500 mg) by mouth in the evening. Take with meals Do not crush, chew, or split. 30 tablet 11 4 01/19/20 25 Discontinued phentermine (Adipex-P) 37.5 MG tabletIndicati ons:Encounter for weight management Take 1 tablet (37.5 mg) by mouth in the morning. Take before meals. 30 tablet 5 01/19/20 25 Discontinued phentermine (Adipex-P) 37.5 MG tabletIndicati ons:Encounter for weight management Take 1 tablet (37.5 mg) by mouth in the morning. Take before meals. 30 tablet 5 01/19/20 25 Discontinued Active Problems Problem Noted Date Diagnosed Date Abnormal weight gain 12/18/2022 Gynecological disease 12/18/2022 Hearing loss 12/18/2022 Morbid obesity 12/18/2022 PCOS (polycystic ovarian syndrome) 12/18/2022 Weight loss 12/18/2022 Encounters Date Type Department Care Team Description 01/18/2025 9:30 [place] [address] Geeta Fuchs PA Encounter for weight management 01/18/2025 Bamboo flowsheet [facility] [address] [place] [address] Geeta Fuchs PA 12/21/2024 9:50 AM EDT Office Visit [facility] [address] [place] [address] Geeta Fuchs PA Weight gain; Encounter for weight management 12/21/2024 Bamboo flowsheet [facility] [address] [facility] [place] [address] Geeta Fuchs PA 11/23/2024 9:50 AM EDT Office Visit [facility] [address] [place] [address] Leonid Mckeon DO Encounter to discuss test results; PCOS (polycystic ovarian syndrome); Encounter for weight management; Abnormal uterine bleeding (AUB) 11/23/2024 Bamboo flowsheet [facility] [address] [place] [address] Leonid Mckeon DO 11/23/2024 Travel 10/27/2024 Clinisync Result Encounter NOMS External Department Unsolicited Leonid Mckeon, 10/25/2024 3:00 PM EDT Office Visit [facility] [address] [place], [place] [address] [place] [address] Leonid Mckeon, DO Well woman exam with routine gynecological exam; PCOS (polycystic ovarian syndrome) 10/25/2024 Clinisync Result Encounter [facility]OMS External Department Unsolicited Leonid Mckeon, 10/25/2024 Bamboo flowsheet [facility] [address] [place] [address] Leonid Mckeon, 10/24/2024 Travel from Last 3 Months Family History Medical History Relation Name Comments Hypertension Father Kidney disease Father Diabetes Maternal Grandfather Mental illness Maternal Grandmother Hypertension Mother Mental illness Mother Relation Name Status Comments Brother Alive Father Alive Maternal Grandfather Maternal Grandmother Mother Alive Social History Tobacco Use Types Packs/Day Years Used Date Smoking Tobacco: Never Smokeless Tobacco: Never Tobacco Cessation:Counseling Given: Not Answered Alcohol Use Standard Drinks/Week Comments Never 0 (1 standard drink = 0.6 oz pur e alcohol) Comments No Sex and Gender Information Value Date Recorded Sex Assigned at Not on file Legal Sex Female 11:15 PM EDT Gender Identity Not on file Sexual Orientation Not on file Last Filed Vital Signs Vital Sign Reading Time Taken Comments Blood Pressure 110/70 01/18/2025 9:50 AM EDT Pulse - - Temperature - - Respiratory Rate - - Oxygen Saturation - - Inhaled Oxygen Concentration - - Weight 152 kg (334 lb 1.6 oz) 01/18/2025 9:50 AM EDT Height 157.5 cm (5' 2 ) 12/21/2024 10:19 AM EDT Body Mass Index 61.11 12/21/2024 10:19 AM EDT Plan of Treatment Upcoming Encounters Date Type Department Care Team (Late st Contact Info) Description 04/12/2025 9:30 AM EST Office Visit [facility] [address] [place] [address] Geeta Fuchs PA [address] [facility] [place] [address] Procedures Procedure Name Priority Date/Time Associated Diagnosis Comments ALL DEHYDROEPIANDROSTERONE Routine 10/27 9:07 AM EDT ALL ANTI-MULLERIAN HORMONE Routine 10/27 9:07 AM EDT ALL ESTRONE(E1) Routine 10/27/2024 9:07 AM EDT ALL PROGESTERONE Routine 10/27/2024 9:07 AM EDT ALL FOLLICLE STIMULATING HORMONE Routine 10/27/2024 9:07 AM EDT ALL LUTEINIZING HORMONE Routine 10/28/19 9:07 AM EDT ALL DHEA SULFATE Routine 10/27/2024 9:07 AM EDT ALL THYROXINE (T4) FREE Routine 10/28/19 9:07 AM EDT [facility] PREG QUANT HCG Routine 10/27/2024 9: 07 AM EDT ALL THYROID STIM HORMONE Routine 025 9:07 AM EDT ALL CBC WITH AUTO DIFF Routine 9:07 AM EDT MLR HEMOGLOBIN A1C Routine 10/27/2024 9: 07 AM EDT IGP,APTIMA HPV,AGE GDLN Routine 10/26/19 3:08 PM EDT PAP SMEAR Routine 10/25/2024 12:00 AM EDT from Last 3 Months Results * TBH PREG QUANT HCG (10/27/2024 9:07 AM EDT) HCG QUANTITATIVE <1 mIU/mL TB Comment: 5-50 0.2-1 WEEK 50-500 1-2 WEEKS 100-5,000 2-3 WEEKS 500-10,000 3-4 WEEKS 1,000-50,000 4-5 WEEKS 10,000-100,000 5-6 WEEKS 15,000-200,000 6-8 WEEKS 10,000-100,000 2-3 MONTHS 10/27/2024 9:07 AM EDT 10/27/2024 9:09 AM EDT Narrative CLINISYNC - 10/27/2024 10:11 AM EDT Leonid Mike DO CLINIS[facility]NC Final Result [facility] * MLR HEMOGLOBIN A1C (10/27/2024 9:07 AM EDT) Pathologist [facility] GLYCOHEMOGLOBIN A1C 5.1 4.5 - 6.2 % [facility] Comment: ADA RECOMMENDED LIMIT 4.0 - 6.0 ADA THERAPEUTIC TARGET < 7.0 ACTION SUGGESTED > 7.0 ESTIMATED AVERAGE GLUCOSE 100 mg/dL [facility] 10/27/2024 9:07 AM EDT 10/27/2024 9:09 AM EDT Narrative CLINISYNC - 10/27/2024 9:31 AM EDT Leonid Mike DO CLINISYNC Final Result [facility] * ALL THYROXINE (T4) FREE (10/27/2024 9:07 AM EDT) Pathologist [facility] FREE T4 1.10 0.76 - 1.46 ng/dL [facility] 10/27/2024 9:07 AM EDT 10/27/2024 9:09 AM EDT Narrative CLINISYNC - 10/27/2024 10:11 AM EDT Elonid Mike DO CLINISYNC Final Result [facility] * ALL THYROID STIM HORMONE (10/27/2024 9:07 AM EDT) THYROID STIMULATING HORMONE 2.204 0.358 - 3.740 uIU/mL [facility] 10/27/2024 9:07 AM EDT 10/27/2024 9:09 AM EDT Narrative CLINISYNC - 10/27/2024 10:11 AM EDT Leonid Mike DO CLINISYNC Final Result Performing Organization Address [facility] de Phone Number [facility] * ALL PROGESTERONE (10/27/2024 9:07 AM EDT) PROGESTERONE 0.2 . ng/mL [facility] Comment: Follicular phase 0.1 - 0.9 Luteal phase 1.8 - 23.9 Ovulation phase 0.1 - 12.0 First trimester 11.0 - 44.3 Second trimester 25.4 - 83.3 Third trimester 58.7 - 214.0 Postmenopausal 0.0 - 0.1 Performed at: [address] [id number] Roving Weight Gauger: Travis Campuzano PhD, Phone: [phone] 10/27/2024 9:07 AM EDT 10/27/2024 9:09 AM EDT Narrative CLINISYNC - 10/28/2024 8:09 AM EDT [facility] Final Result Performing Organization Address [facility] de Phone Number [facility] * ALL LUTEINIZING HORMONE (10/27/2024 9:07 AM EDT) LUTEINIZING HORMONE(LH) 15.6 . mIU/mL [facility] Comment: Adult Female Range Follicular phase 2.4 - 12.6 Ovulation phase 14.0 - 95.6 Luteal phase 1.0 - 11.4 Postmenopausal 7.7 - 58.5 10/27/2024 9:07 AM EDT 10/27/2024 9:09 AM EDT Narrative CLINISYNC - 10/28/2024 8:09 AM EDT Leonid Mike DO CLINISYNC Final Result Performing Organization Address [facility]/ZIP Co de Phone Number [facility] * ALL FOLLICLE STIMULATING HORMONE (10/27/2024 9:07 AM EDT) FSH 4.2 . mIU/mL [facility] Comment: Adult Female Range Follicular phase 3.5 - 12.5 Ovulation phase 4.7 - 21.5 Luteal phase 1.7 - 7.7 Postmenopausal 25.8 - 134.8 10/27/2024 9:07 AM EDT 10/27/2024 9:09 AM EDT Narrative CLINISYNC - 10/28/2024 8:09 AM EDT Leonid Mike DO CLINISYNC Final Result Performing Organization Address [facility] Phone Number [facility] * ALL ESTRONE(E1) (10/27/2024 9:07 AM EDT) ESTRADIOL 137.0 . pg/mL [facility] Comment: Adult Female Range Follicular phase 12.5 - 166.0 Ovulation phase 85.8 - 498.0 Luteal phase 43.8 - 211.0 Postmenopausal <6.0 - 54.7 1st trimester 215.0 - >4300.0 Antolin ECLIA methodology Performed at: [address] [id number] Roving Weight Gauger: Travis Campuzano PhD, Phone: [phone] 10/27/2024 9:07 AM EDT 10/27/2024 9:09 AM EDT Narrative CLINISYNC - 10/28/2024 8:09 AM EDT Leonid Mike DO CLINISYNC Final Result Performing Organization Address [facility] Co de Phone Number [facility] * ALL DHEA SULFATE (10/27/2024 9:07 AM EDT) DHEA-SULFATE 341.0 84.8 - 378.0 ug/dL [facility] 10/27/2024 9:07 AM EDT 10/27/2024 9:09 AM EDT Narrative CLINISYNC - 10/28/2024 8:09 AM EDT Leonid Mike DO CLINISYNC Final Result [facility] * ALL DEHYDROEPIANDROSTERONE (10/27/2024 9:07 AM EDT) Pathologist [facility] DHEA, SERUM 346 31 - 701 ng/dL [facility] Comment: This test was developed and its performance characteristics determined by [facility]. It has not been cleared or approved by the Food and Drug Administration. Performed at: [address] [id number] Roving Weight Gauger: Charly Yan MD, Phone: [phone] 10/27/2024 9:07 AM EDT 10/27/2024 9:09 AM EDT Narrative CLINISYNC - 11/02/2024 7:08 AM EDT [facility] Final Result Performing Organization Address [facility]/ZIP Co de Phone Number CLINISYAL TB * (ABNORMAL) ALL CBC WITH AUTO DIFF (10/27/2024 9:07 AM EDT) TB WBC 5.9 4.0 - 11.0 10 3/uL TBH TBH RBC 4.99 4.20 - 5.40 10 6/uL TBH TBH HGB 13.4 12.0 - 16.0 g/dL TBH TBH HCT 40.2 36.0 - 48.0 % TBH TBH MCV 80.6(L) 81.0 - 99.0 fL TBH TBH MCH 26.9 26.7 - 34.0 pg TBH TBH MCHC 33.3 29.9 - 35.2 g/dL TBH TBH RDW 12.9 11.0 - 15.0 % TBH TBH PLT 265 150 - 450 10 3/uL TBH TBH MPV 8.6(L) 9.5 - 13.5 fL TBH NEUTROPHILS PERCENT AUTO 54.8 43.0 - 75.0 % TBH LYMPHOCYTES PERCENT AUTO 35.7 20.5 - 60.0 % TBH MONOCYTES PERCENT AUTO 6.4 1.7 - 12.0 % TBH TBH EO % 2.4 0.9 - 7.0 % TBH BASOPHILS PERCENT AUTO 0.5 0.2 - 2.0 % TBH IMMATURE GRANULOCYTES PCT AUTO 0.2 0.0 - 0.5 % TBH NEUTROPHILS ABSOLUTE AUTO 3.2 1.4 - 6.5 10 3/uL TBH LYMPHOCYTES ABSOLUTE AUTO 2.1 1.2 - 3.8 10 3/uL TBH MONOCYTES ABSOLUTE AUTO 0.4 0.3 - 0.8 10 3/uL TBH TBH EO # 0.1 0.0 - 0.7 10 3/uL TBH BASOPHILS ABSOLUTE AUTO 0.0 0.0 - 0.1 10 3/uL TBH IMMATURE GRANULOCYTES ABS AUTO 0.01 0.00 - 0.03 10 3/uL [facility] 10/27/2024 9:07 AM EDT 10/27/2024 9:09 AM EDT Narrative CLINISYNC - 10/27/2024 9:31 AM EDT Leonid Mckeon DO CLINISYNC Final Result [facility] * ALL ANTI-MULLERIAN HORMONE (10/27/2024 9:07 AM EDT) ANTI-MULLERIAN HORMONE (AMH) 5.00 . ng/mL [facility] Comment: For assays employing antibodies, the possibility exists for interference by heterophile antibodies in the samples.1 1.Lucy Morales. Interferences in Immunoassays - still a threat. Clin. Chem. 2000; 46: 8432-4990. This test was developed and its performance characteristics determined by [facility]. It has not been cleared or approved by the Food and Drug Administration. Reference Range: Females 20 - 25y: 1.23 - 11.51 Median 4.70 AMH concentrations of >= 1.06 ng/mL is correlated with a better response to ovarian stimulation, produced more retrievable oocytes and higher odds of live according to Gleicher et al. Fertility and Sterility. 2010: 94:9863-9359. The current AMH test method correlates with the study method with a slope of 0.94. Females at risk of ovarian hyperstimulation syndrome or polycystic ovarian syndrome (PCOS) may exhibit elevated serum AMH concentrations. AMH levels from PCOS patients may be 2 to 5 fold higher than age-appropriate reference interval values. Granulosa cell tumors of the ovary may secrete AMH along with other tumor markers. Elevated AMH is not specific for malignancy, and the assay should not be used exclusively to diagnose or exclude an AMH-secreting ovarian tumor. Performed at: [facility] [address] [place] [id number] Roving Weight Gauger: Trey Madsen MD, Phone: [phone] 10/27/2024 9:07 AM EDT 10/27/2024 9:09 AM EDT Narrative CLINISYNC - 10/30/2024 4:50 AM EDT Leonid Mckeon DO CLINISYNC Final Result [facility] * IGP,APTIMA HPV,AGE GDLN (10/25/2024 3:08 PM EDT) Pathologist [facility] AGE GDLN ACOG TESTING Note . [facility] Comment: TESTS RESULT FLAG UNITS REF RANGE LAB Clinician Provided Cytology Information Source.............Cervix;Endocervix No. of containers..01 ThinPrep Vial Age Kill[place] ACJASPER Katharine... FLAG LEGEND: L-Low Normal,H-High Normal,LL-Alert Low,HH-Alert High <-Panic Low,>-Panic High,A-Abnormal,AA-Critical Abnormal Performed at: 01 [facility] [place] [address] Marlen Serrano MD, IGP, RFX APTIMA HPV ASCU Note . [facility] Comment: TESTS RESULT FLAG UNITS REF RANGE LAB DIAGNOSIS: 02 NEGATIVE FOR INTRAEPITHELIAL LESION OR MALIGNANCY. Specimen adequacy: 02 Satisfactory for evaluation. No endocervical component is identified. Performed by: Charlotte Hartley, Change Room Attendant ([facility]) . 02 Note: Note 02 The Pap smear is a screening test designed to aid in the detection of premalignant and malignant conditions of the uterine cervix. It is not a diagnostic procedure and should not be used as the sole means of detecting cervical cancer. Both false-positive and false-negative reports do occur. Test Methodology: Note 02 This liquid based ThinPrep(R) pap test was screened with the use of an image guided system. . 02 The HPV DNA reflex criteria were not met with this specimen result therefore, no HPV testing was performed. FLAG LEGEND: L-Low Normal,H-High Normal,LL-Alert Low,HH-Alert High <-Panic Low,>-Panic High,A-Abnormal,AA-Critical Abnormal Performed at: [address] [facility] [address] Marlen Serrano MD, Performed at: = - [facility] [address] [id number] Roving Weight Gauger: Marlen Serrano MD, Phone: [phone] Performed at: - [facility] [id number] Roving Weight Gauger: Marlen Serrano MD, Phone: [phone] 10/25/2024 3:08 PM EDT 10/25/2024 9:49 PM EDT Narrative CLINISYNC - 10/28/2024 12:12 PM EDT BRUSH-SPATULA CERVIX ENDOCERVIX Leonid Mike DO LAB BLOOD ORDERABLES Final Resul t Performing Organization Address City/[facility]/ZIP Co de Phone Number [facility] * Pap Smear (10/25/2024 12:00 AM EDT) Swab Cervical swab / Unknown Leonid Mike DO LAB CYTOLOGY ORDERABLES Final Re sult Performing Organization Address City/[facility]/ZIP Co de Phone Number EXTERNAL LAB from Last 3 Months Insurance BS
--- OUTSIDE RECORDS SUMMARY | 2025-01-20 14:32 | XMS_ITS | Encounter Summary ---
Author Organization [facility] Address [address] [place] [address] Care Team Providers Care Clock Smith Name Role Phone Lyla Lozoya DO Unavailable [phone] Encounter Details Date Type Department Care Team (Late Contact Info) Description 10/15/2022 Clinisync Result Encounter NOMS External Department Unsolicited Leonid Mckeon DO [address] [facility] [address] [place], [place] [id number] Social History Tobacco Use Types Packs/Day Years [...] AM EST Office Visit [facility]I LEGER [address] [place] [id number] Geeta Fuchs PA [address] [facility] [place] [address] documented as of this encounter Procedures Procedure Name Priority Date/Time Associated Diagnosis Comments US PREG CERVICAL LENGTH 10/15/2022 9:52 AM EDT documented in this encounter Results * US PREG CERVICAL LENGTH (10/15/2022 9:52 AM EDT) Anatomical Region Laterality Modality Other 10/15/2022 9:52 AM EDT Narrative 10/15/2022 11:59 AM EDT EXAMINATION: US PREG ANATOMY SINGLE, US PREG CERVICAL LENGTH HISTORY: anatomy study COMPARISON: No relevant comparison available. TECHNIQUE: Transabdominal sonographic examination was performed for obstetrical and evaluation. FINDINGS: Limited by maternal body habitus Number: 1 Heart Rate: 157.0 bpm H.B. /min Amniotic Fluid Volume: Subjectively normal position: Variable lie and presentation Placental Location: Anterior, grade 0. Placental edge 5.3 cm from the internal os Cervix Length: 3.4 cm, closed Normal anatomy: Orbits, four-chamber heart, diaphragm, stomach, kidneys, abdominal cord insertion, bladder, umbilical cord, extremities Suboptimal or nonvisualization: Lateral ventricles, cerebellum, posterior fossa, nose/lips, RVOT, LVOT, three-vessel cord, spine BIOMETRY: BPD: 5.2 cm 21 weeks 6 days , 72% HC: 18.8 cm 21 weeks 1 days, 31% AC: 17.1 cm 22 weeks 0 days, 68% FL: 3.8 cm 22 weeks 2 days, 73% EFW:468.4 grams; 1 lb. 1 oz., 82% FL/AC: 22.4 FL/BPD: 73.0 HC/AC: 1.1 GESTATIONAL AGE: Age by EDC: 21 weeks 2 days ALE by EDC: 02/23/2023 Age by current US: 21 weeks 6 days ALE by current US: 02/19/2023 IMPRESSION: Suboptimal visualization of anatomy secondary to maternal body habitus *Reference: [employer] Practice Guideline for the performance of Obstetric Ultrasound Examinations, February 16, 2007. Electronically authenticated by: JOSE DURHAM Date: 2022-10-15 11:59 Procedure Note Radiology, Radiologist, - 10/15/2022 EXAMINATION: US PREG ANATOMY SINGLE, US PREG CERVICAL LENGTH HISTORY: anatomy study COMPARISON: No relevant comparison available. TECHNIQUE: Transabdominal sonographic examination was performed forobstetrical and evaluation. FINDINGS: Limited by maternal body habitus Number: 1 Heart Rate: 157.0 bpm H.B. /min Amniotic Fluid Volume: Subjectively normal position: Variable lie and presentation Placental Location: Anterior, grade 0. Placental edge 5.3 cm from theinternal os Cervix Length: 3.4 cm, closed Normal anatomy: Orbits, four-chamber heart, diaphragm, stomach, kidneys, abdominal cord insertion, bladder, umbilical cord, extremities Suboptimal or nonvisualization: Lateral ventricles, cerebellum, posteriorfossa, nose/lips, RVOT, LVOT, three-vessel cord, spine BIOMETRY: BPD: 5.2 cm 21 weeks 6 days , 72% HC: 18.8 cm 21 weeks 1 days, 31% AC: 17.1 cm 22 weeks 0 days, 68% FL: 3.8 cm 22 weeks 2 days, 73% EFW:468.4 grams; 1 lb. 1 oz., 82% FL/AC: 22.4 FL/BPD: 73.0 HC/AC: 1.1 GESTATIONAL AGE: Age by EDC: 21 weeks 2 days ALE by EDC: 02/23/2023 Age by current US: 21 weeks 6 days ALE by current US: 02/19/2023 IMPRESSION: Suboptimal visualization of anatomy secondary to maternal body habitus *Reference: [employer] Practice Guideline for the performance of ObstetricUltrasound Examinations, February 16, 2007. Electronically authenticated by: JOSE DURHAM Date: 2022-10-15 11:59 us Leonid Mckeon DO [facility] IMAG[facility] Final Result documented in this encounter Visit Diagnoses Not on filedocumented in this encounter Care Teams Clock Smith Relationship Specialty Start Date End Date Lyla Lozoya DO [address] [place] [address] [employer] 03/19/21 documented as of this encounter
--- OUTSIDE RECORDS SUMMARY | 2025-01-20 14:32 | XMS_ITS | Encounter Summary ---
Author Organization [facility] Address [address] [place] [address] Care Team Providers Care Cost Recovery Technician Name Role Phone Unavailable Primary Care Provider Unavailabl e Encounter Details Date Type Department Care Team (Late Contact Info) Description 01/18/2025 Bamboo flowsheet [facility] [address] [place] [address] [place] [phone] Geeta Fuchs PA [address] [facility] [address] [place], [place] [address] Social History Tobacco Use Types Packs/Day Years [...] 9:30 AM EST Office Visit [facility] [address] [place] [address] [place] [address] Geeta Fuchs PA [address] [facility] [address] [place], [facility]11 documented as of this encounter Visit Diagnoses Not on filedocumented in this encounter
--- OUTSIDE RECORDS SUMMARY | 2025-01-20 14:32 | XMS_ITS | Encounter Summary ---
Author Organization [facility] Address [address] [place] [address] Care Team Providers Care Satellite Communications Operator Name Role Phone Lyla Lozoya DO Unavailable [phone] Encounter Details Date Type Department Care Team (Late Contact Info) Description 12/02/2022 Abstract [facility] [address] [facility] [place] [phone] Leonid Mckeon DO [address] [facility] [address] [place], [facility]11 Social History Tobacco Use Types Packs/Day [...] AM EST Office Visit [facility] [address] [place] [address] Geeta Fuchs PA [address] [facility] [address] [place], [facility]11 documented as of this encounter Visit Diagnoses Not on filedocumented in this encounter Care Teams Satellite Communications Operator Relationship Specialty Start Date End Date Lyla Lozoya DO [address] [place] [address] PCP - [place] [employer] 11/1/21 7/31/ 23 documented as of this encounter
--- OUTSIDE RECORDS SUMMARY | 2025-01-20 14:32 | XMS_ITS | Patient Health Record ---
Author Organization [facility] [place] Address [address] [place] [address] Care Team Providers Care Ground Service Equipment Mechanic Name Role Phone Lavinia Soto Primary Care Provider Allergies Allergen (clinical drug ingredient) Drug/Non Drug Allergy documented on EMR Reaction Allergy Type Onset Date Status codeine Codeine vomiting Drug Allergy Active Reason For Referral Reason PCOS , patient reque sting referral Diagnosis 1 PCOS (polycystic ova jaret syndrome) (E28.2) Referral Organization [facility] Medicine Referring Provider First Name Lavinia Referring Provider Last Name Brittany Referring Provider [facility] Referred Provider Lj Bettencourt Referred Provider Specialty Endocrinolog y Referral Priority Routine Medications Medication SIG (Take, Route, Fr equency, [...] Risk Notes Problem Polycystic ovary syndrome (disorder) (838791017) PCOS (polycystic ovarian syndrome) (E28.2) Active confirmed Problem Morbid obesity (720133721) Class 3 obesity (E66.01) Active confirmed Vital Signs Blood pressure diastolic 70 mm Hg 01/20/2025 Height 62 in 01/20/2025 Blood pressure systolic 120 mm Hg 01/20/2025 Weight 334 lbs 01/20/2025 BMI 61.08 kg/m2 01/20/2025 Encounters Encounter Location Date Provider Diagnosis [facility] [address] [place] [address] 01/07/[address] [facility] [address] [place] [address] 01/10/2025 Lavinia Soto Cellulitis L03.90 [facility] [address] [place] [address] 01/10/2025 Laviniareji S[address] Fatigue R[address].83 [facility] [address] [place] [address] 01/07/2025 Lavinia Brittany Cellulitis L03.90 [facility] [address] [place] [address] 01/20/2025 Lavinia Soto Cellulitis L03.90 an d PCOS (polycystic ovarian syndrome) E28.2 Assessments Encounter Date Diagnosis (ICD Code) Assessment Notes Treatment Notes Treatment Clinical Notes Section Notes 01/07/2025 Cellulitis (ICD-10 - L03.90) continue monitor fu if not improving 01/20/2025 Cellulitis (ICD-10 - L03.90) 1 gm Rocephin IM today fu LARRY for midline, IV abx wound culture taken wants to avoid admission if possible, has 2 yo son she cares for 01/10/2025 Cellulitis (ICD-10 - L03.90) 01/10/2025 Fatigue (ICD-10 - R53.83) 01/20/2025 PCOS (polycystic ovarian syndrome) (ICD-10 - E28.2) Plan Of Treatment Pending Test Test Name Order Date CMP - Comprehensive Metabolic Panel 12/18 Culture, Wound 01/20/2025 CULTURE WOUND 01/20/2025 THYROID PANEL (T4/TSH/FREE T3) Insurance Providers Payer Name Payer Address Payer Phone Subscriber Number Group Number Insured Name Patient Relationship to Insured Coverage Start Date Coverage End Date LEE ACCESS PPO PLUS LOCAL PLAN [address] [place] [address] [id number] Mart Santos Spouse - patient is the spouse of the insured Medical (General) History Surgical History Surgery Date(Month/Year) wisdom teeth removed c section 2022
--- OUTSIDE RECORDS SUMMARY | 2025-01-20 14:32 | XMS_ITS | Encounter Summary ---
Author Organization [facility] Address [address] [place] [address] Care Team Providers Care Securities Research Analyst Name Role Phone Lyla Lozoya DO Unavailable [phone] Encounter Details Date Type Department Care Team (Late Contact Info) Description 11/14/2022 Abstract [facility]GER [address] [place] [phone] Leonid Mckeon DO [address] [facility] [address] [place], [facility]11 Social History Tobacco Use Types Packs/Day Years [...] AM EST Office Visit [facility] LEGER [address] [place] [address] Geeta Fuchs PA [address] [facility] [address] [place], [facility]11 documented as of this encounter Visit Diagnoses Not on filedocumented in this encounter Care Teams Securities Research Analyst Relationship Specialty Start Date End Date Lyla Lozoya DO [address] [place] [address] PCP - [place] [employer] 11/1/21 7/31/ 23 documented as of this encounter
--- OUTSIDE RECORDS SUMMARY | 2025-01-20 14:32 | XMS_ITS | Encounter Summary ---
Author Organization [facility] Address [address] [place] [address] Care Team Providers Care Grinder Set Up Operator Centerless Name Role Phone Lyla Lozoya DO Unavailable [phone] Encounter Details Date Type Department Care Team (Late Contact Info) Description 10/15/2022 Clinisync Result Encounter [facility] External Department Unsolicited Leonid Mckeon DO [address] [facility] [place] [address] Social History Tobacco Use Types Packs/Day Years [...] AM EST Office Visit [facility] [address] [place] [phone] Geeta Fuchs PA [address] [facility] [place] [address] documented as of this encounter Procedures Procedure Name Priority Date/Time Associated Diagnosis Comments US PREG ANATOMY SINGLE 10/15/2022 9:52 AM EDT documented in this encounter Results * US PREG ANATOMY SINGLE (10/15/2022 9:52 AM EDT) Anatomical Region Laterality [...] on filedocumented in this encounter Care Teams Grinder Set Up Operator Centerless Relationship Specialty Start Date End Date Lyla Lozoya DO [address] [place] [address] [place] - [employer] 03/19/21 documented as of this encounter
== END 2025-01-20 14:30 | disposition home or self-care (01) ==
LOC: LAB 14:29
PROVIDERS: Visit Provider Nurse Practitioner Family
DX: L03.90 Cellulitis, unspecified (principal)
CPT/HCPCS: 87070; 87075

== ENCOUNTER 2025-01-31 16:59 | Emergency (ER) | payer BC, SELFPAY ==
--- OUTSIDE RECORDS SUMMARY | 2025-01-18 09:30 | XMS_ITS | Encounter Summary ---
Author Organization [facility] Address [address] [facility] [place] [address] Care Team Providers Care Client Experience Specialist Name Role Phone Unavailable Primary Care Provider Unavailabl e Reason for Visit * Reason Comments encounter for weight management Encounter Details Date Type Department Care Team ([facility] st Contact Info) Description 01/18/2025 9:30 AM EDT Office Visit ALLI LEGER [address] [facility] [place] [address] Geeta Fuchs PA [address] [facility] [place] [address] Encounter for weight management Social History Tobacco [...] AM EDT Reason for Appointment: Patient ID: Lnyne Santos is a 24 y.o. female who [...] Morbid obesity with BMI of 45.0-49.9, adult ([facility]) PCOS (polycystic ovarian syndrome) Weight loss Past [...] nursing note reviewed. Exam conducted with a louver door assembler present. Assessment/Plan Encounter Diagnosis Name Primary? Encounter [...] [facility] [address] [place] [address] Lj Bettencourt MD [address] [place] [address] 04/12/2025 9:30 AM EST Office Visit ALLI LEGER [address] [facility] [place] [place] [address] Geeta Fuchs PA [address] [facility] [place] [address] documented as of this encounter Procedures Procedure [...]
--- OUTSIDE RECORDS SUMMARY | 2025-01-20 05:00 | XMS_ITS ---
Author Organization [facility] in [place] Address [address] [place] [address] Care Team Providers Care Real Estate Underwriter Name Role Phone Lavinia Soto Primary Care Provider [phone] Allergies Allergen (clinical drug ingredient) Drug/Non Drug Allergy documented on EMR Reaction Allergy Type Onset Date Status codeine Codeine vomiting Drug Allergy Active Reason For Referral Reason PCOS , patient reque sting referral Diagnosis 1 PCOS (polycystic ova jaret syndrome) (E28.2) Referral Organization [facility] Medicine Referring Provider First Name Lavinia Referring Provider Last Name Brittany Referring Provider Speciality Family Med icielan Referred Provider Lj Bettencourt Referred Provider Specialty Endocrinolog y Referral Priority Routine REASON FOR VISIT [facility] ER on friday FU-Cellulitis still on antibiotics Medications Medication SIG (Take, Route, Fr equency, Duration) Notes Start Date End Date Status metFORMIN HCl 1000 MG 1 tablet with a me al Orally Once a day Active Adipex-P 37.5 MG 1 tablet before madina kfast Orally Once a day Active Cephalexin 500 MG 2 capsule Orally BID ; Duration: 7 days 01/10/2025 Active Social History Tobacco Use: Social History Observation Description Date Details (start date - stop date) Never Smoker NA - NA Tobacco Control (Standard) Question Answer Notes Tobacco use: Nonsmoker AUDIT-C (Standard) Question Answer Notes Did you have a drink containing alcohol in the p ast year? No Points 0 Interpretation Negative Vital Signs Weight 334 lbs 01/20/2025 Height 62 in 01/20/2025 Blood pressure systolic 120 mm Hg 09/04/20 25 Blood pressure diastolic 70 mm Hg 025 BMI 61.08 kg/m2 01/20/2025 Encounters Encounter Location Date Provider Diagnosis [facility] [address] [facility] [place] [address] 01/20/2025 Lavinia Soto Cellulitis L03.90 an d [...] 1 Week,prn, Reaso n: Progress Notes * Eunice SANTOSOB:2000 (24 yo F)Acc No.[id number]:01/20/2025 Progress Note Patient: Lynne DIALLO Provider: Gregoria Soto ([facility]), SOCIAL PROFESSIONALS :2000 A ge:24 Y S ex:Female Date:01/20/2025 Address:[address] [id number] Check In:09:01 AM ESTCheck O ut:09:39 AM [...] requesting referral * Preventive Medicine: Screenings/Counseling: B ID ACTION PLAN Above Normal BMI Follow-up D ietary management education, guidance, and counseling * Follow Up: 1 Week,prn * * Electronically signed by Sujey Soto NP, CLIENT ACCOUNT SPECIALIST.SOCIAL PROFESSIONALS.[id number] on 01/20/2025 at 11:56 AM EDT Sign off status: Completed Visit Status: C HK (Check Out) true * Provider: Gregoria Soto ([facility])BIB Date: 01/20/2025 Generated for Corey shah/Abrahan/Maribellitting on: 01/31/2025 05:08 PM EDT History and Physical Notes * HPI (History of Present Illness) Category Sub-Category Detail Notes Category Not es General [facility] PCOS would like to see wound [...]
--- OUTSIDE RECORDS SUMMARY | 2025-01-31 17:07 | XMS_ITS | Encounter Summary ---
Author Organization [facility] Address [address] [place] [address] Care Team Providers Care Monitoring And Evaluation Advisor Name Role Phone Unavailable Primary Care Provider Unavailabl e Encounter Details Date Type Department Care Team (Late Contact Info) Description 02/20/2023 Abstract [facility] [facility] [address] [facility] [place] [address] Leonid Mckeon DO [address] [facility] [address] [place], [place] [address] Social History Tobacco Use Types Packs/Day Years [...] Upcoming Encounters Date Type Department Care Team ([facility] Contact Info) Description 03/14/2025 10:10 AM EDT Office Visit [facility] [place] [facility] [address] [place] [address] Lj Bettencourt MD [address] [place] [address] 04/12/2025 9:30 AM EST Office Visit [facility] [address] [facility] [place] [address] Geeta Fuchs PA [address] [place] [address] [place] [address] documented as of this encounter Visit Diagnoses Not on filedocumented in this encounter
--- OUTSIDE RECORDS SUMMARY | 2025-01-31 17:07 | XMS_ITS | Encounter Summary ---
Author Organization [facility] Address [address] [place] [address] Care Team Providers Care Turf Sales Person Name Role Phone Unavailable Primary Care Provider Unavailabl e Encounter Details Date Type Department Care Team (Late Contact Info) Description 02/12/2023 Clinisync Result Encounter [facility] External Department Unsolicited Oxana Mckeon DO [address] [facility] [address] [place], [facility]11 Social History Tobacco Use Types Packs/Day [...] Upcoming Encounters Date Type Department Care Team ([facility] Contact Info) Description 03/14/2025 10:10 AM EDT Office Visit [facility] [place] Endocr[facility] [address] [place] [address] Lj Bettencourt MD [address] [place] [address] 04/12/2025 9:30 AM EST Office Visit [place] OBJESSICA [address] [facility] [place] [phone] Geeta Fuchs PA [address] [facility] [place] [address] [phone] (work) documented as of this encounter Procedures Procedure Name Priority Date/Time Associated Diagnosis Comments US OB GROWTH 02/12/2023 1:18 PM EDT documented in this encounter Results * US OB GROWTH (02/12/2023 1:18 PM EDT) Anatomical Region Laterality Modality Other 02/12/2023 1:18 PM EDT Narrative 02/12/2023 1:18 [place] [address] Ultrasound Report Signed Patient: ALPA SANTOS MR#: [id number] : 2000 Acct:[id number] Age/Sex: 22 / F ADM Date: 02/12/23 Loc: [facility] 250-[address]: Oxana Mckeon D.O. Ordering Physician: Oxana Mckeon D.O. Date of Service: 02/12/23 Procedure(s): US OB growth Accession Number(s): [id number] cc: Oxana Mckeon D.O.; Physician,Non-Staff M.DKhurram The [address] [address] Patient Name: ALPA SANTOS MRN: [id number] date: 2000 Sex: F Assigned Patient Location: [facility] Current Patient Location: [facility] Accession/Order Number: [id number] Exam Date: 02/12/2023 12:30 Report Date: 02/12/2023 13:18 At the request of: OXANA MCKEON Procedure: US OB growth EXAM: US OB growth, US OB BPP w non-stress; [id number], [id number] HISTORY: Decreased motion. COMPARISON: growth ultrasound 01/08/2023. [...] less than 3 percentile. Electronically authenticated by: KYA CERVANTES Date: 02/12/2023 13:18 Dictated By: Kya Cervantes Signed By: 02/12/23 1320 DD/ 1318 TD/TT: Journeyman Pipefitter: Procedure Note Radiology, Radiologist, MD - 02/12/2023 [place] [address] Ultrasound Report Signed Patient: ALPA SANTOS EMR#: [id number] : 2000Acct:[id number] Age/Sex: 22 / FADM Date: 02/12/23 Loc: [facility] 250-[address]: Oxana Mckeon D.O. Ordering Physician: Oxana Mckeon D.O. Date of Service: 02/12/23 Procedure(s): US OB growth Accession Number(s): [id number] cc: Oxana Mckeon D.O.; Physician,Non-Staff M.DKhurram The [address] [address] Patient Name: ALPA SANTOS MRN: [id number] date: 2000 Sex: F Assigned Patient Location: [facility] Current Patient Location: [facility] Accession/Order Number: [id number] Exam Date: 02/12/2023 12:30 Report Date: 02/12/2023 13:18 At the request of: OXANA MCKEON Procedure: US OB growth EXAM: US OB growth, US OB BPP w non-stress; [id number], [id number] HISTORY: Decreased motion. COMPARISON: growth ultrasound 01/08/2023. [...] measures 131 bpm. Amniotic fluid index (JESS) ycnwlqup76.31 cm. Cervix appears closed. US/US OB growth [...] less than 3 percentile. Electronically authenticated by: KYA CERVANTES Date: 02/12/2023 13:18 Dictated By: Kya Cervantes Signed By:02/12/23 1327 DD/ 1318 TD/TT: Journeyman Pipefitter: us Oxana Mike DO [facility] Final Result documented in this encounter Visit Diagnoses Not on filedocumented in this encounter
--- OUTSIDE RECORDS SUMMARY | 2025-01-31 17:08 | XMS_ITS | Encounter Summary ---
Author Organization [facility] Address [address] [place] [address] Care Team Providers Care Bush Hog Operator Name Role Phone Unavailable Primary Care Provider Unavailabl e Encounter Details Date Type Department Care Team (Late Contact Info) Description 01/10/2023 Abstract [facility] [facility] [address] [place] [address] Leonid Mckeon DO [address] [facility] [address] [place], [place] [address] Social History Tobacco Use Types Packs/Day Years [...] Upcoming Encounters Date Type Department Care Team ([facility] Contact Info) Description 03/14/2025 10:10 AM EDT Office Visit [facility] [place] [facility] [address] [place] [address] Lj Bettencourt MD [address] [place] [address] 04/12/2025 9:30 AM EST Office Visit [facility] [address] [place] [address] Geeta Fuchs PA [address] [place] [address] [place] [address] documented as of this encounter Visit Diagnoses Not on filedocumented in this encounter
--- OUTSIDE RECORDS SUMMARY | 2025-01-31 17:08 | XMS_ITS | Patient Health Record ---
Author Organization [facility] [place] Address [address] [place] [address] Care Team Providers Care Manager Division Name Role Phone Lavinia Soto Primary Care Provider [phone] Allergies Allergen (clinical drug ingredient) Drug/Non Drug Allergy documented on EMR Reaction Allergy Type Onset Date Status codeine Codeine vomiting Drug Allergy Active Results Component Value Reference Range Notes Aerobic Culture Reviewed date:01/25/2025 10:37:17 AM Interpretation: Performing Lab: Notes/Report: [facility] , Aerobic Culture See Below For Report Aerobic Culture Aerobic Culture No growth after 18-2 4 hours. Aerobic Culture Aerobic Culture Aerobic Culture Aerobic Culture No growth in 36 - 48 hours. Aerobic Culture Aerobic Culture Performed at: [facility] Aerobic Culture Aerobic Culture [address] [place], [place] [id number] Aerobic Culture Aerobic Culture Quarry Boss: Sonya Campuzano PhD, Phone: [phone] Aerobic Culture Performing Lab: see note - [facility] LB SEE REPORT - Potato Grader Id information not found for OBX-specific blueprint reproducer legend Anaerobic Culture Reviewed date:01/25/2025 10:37:17 AM Interpretation: Performing Lab: Notes/Report: [facility] , Anaerobic Culture See Below For Report Anaerobic Culture Anaerobic Culture No aerobic or anaero bic growth in 72 hours. Anaerobic Culture Performing Lab: see note - [facility] Aerobic Culture Reviewed date:01/25/2025 10:37:17 AM Interpretation: Performing Lab: Notes/Report: [facility] , Aerobic Culture See Below For Report Aerobic Culture Aerobic Culture No growth after 18-2 4 hours. Aerobic Culture Aerobic Culture Aerobic Culture Aerobic Culture No growth in 36 - 48 hours. Aerobic Culture Aerobic Culture Performed at: [facility] Aerobic Culture Aerobic Culture [address], [place] [id number] Aerobic Culture Aerobic Culture Quarry Boss: Sonya Campuzano PhD, Phone: [phone] Aerobic Culture Performing Lab: see note - [facility] LB SEE REPORT - Potato Grader Id information not found for OBX-specific blueprint reproducer legend Reason For Referral Reason PCOS , patient reque sting referral Diagnosis 1 PCOS (polycystic ova jaret syndrome) (E28.2) Referral Organization [facility] Referring Provider First Name Lavinia Referring Provider Last Name Brittany [facility]erring Provider [facility] Referred Provider Lj Bettencourt Referred Provider Specialty Endocrinolog y Referral Priority Routine Medications Medication SIG (Take, Route, Fr equency, Duration) Notes Start Date End Date Status metFORMIN HCl 1000 MG 1 tablet with a me al Orally Once a day Active Adipex-P 37.5 MG 1 tablet before madina kfast Orally Once a day Active Social History Tobacco Use: Social History [...] Risk Notes Problem Polycystic ovary syndrome (disorder) (379720512) PCOS (polycystic ovarian syndrome) (E28.2) Active confirmed Problem Morbid obesity (241044135) Class 3 obesity (E66.01) Active confirmed Vital Signs Blood pressure diastolic 82 mm Hg 01/31/2025 Height 62 in 01/31/2025 Blood pressure systolic 136 mm Hg 01/31/2025 Weight 332.4 lbs 01/31/2025 BMI 60.79 kg/m2 01/31/2025 Encounters Encounter Location Date Provider Diagnosis [place] [address] [place] [address] 01/07/2025 Lavinia Brittany Cellulitis L03.90 [facility] [address] [place] [address] 01/20/2025 Lavinia Soto Cellulitis L03.90 an d PCOS (polycystic ovarian syndrome) E28.2 [facility] [address] [place] [facility] [place] [address] 01/31/2025 Lavinia Soto Abscess L02.91 [facility] [address] [place] [place] [address] 01/07/2025 Lavinia Soto [facility] [address] [place] [facility] [place] [place] [address] 01/10/2025 Lavinia Soto Cellulitis L03.90 [facility] [address] [place] [place] [place] [address] 01/10/2025 Lavinia Soto Fatigue R53.83 [facility] [address] [place] [place] [place] [address] 01/21/2025 Lavinia Soto [facility] [address] [place] [place] [place] [address] 01/24/2025 Lavinia Soto [facility] [address] [place] [place] [place] [address] 01/25/[address] [facility] [address] [place] [place] [place] [address] 01/26/2025 Lavinia Soto Assessments Encounter Date Diagnosis (ICD Code) Assessment Notes Treatment Notes Treatment Clinical Notes Section Notes 01/07/2025 Cellulitis (ICD-10 - L03.90) continue monitor fu if not improving 01/20/2025 Cellulitis (ICD-10 - L03.90) 1 gm Rocephin IM today fu LARRY for midline, IV abx wound culture taken wants to avoid admission if possible, has 2 yo son she cares for 01/31/2025 Abscess (ICD-10 - L02.91) failed outpatient treatment failed IV tx as outpt to ER for eval pt verbalizes understanding, states will go this evening has midline right upper arm 01/10/2025 Cellulitis (ICD-10 - L03.90) 01/10/2025 Fatigue [...] Insured Coverage Start Date Coverage End Date AN[employer]M ACCESS PPO PLUS LOCAL PLAN [address] [place] [address] [phone] [id number] Mart Santos Spouse - patient is the spouse of the insured Medical (General) History Surgical History Surgery Date(Month/Year) wisdom teeth removed c section 2022
--- OUTSIDE RECORDS SUMMARY | 2025-01-31 17:08 | XMS_ITS | Encounter Summary ---
Author Organization [facility] Address [address] [place] [address] Care Team Providers Care Powder Carrier Name Role Phone Lyla Lozoya DO Unavailable Encounter Details Date Type Department Care Team (Late st Contact Info) Description 10/15/2022 Clinisync Result Encounter [facility] External Department Unsolicited Leonid Mckeon DO [address] [facility] [address] [place], [place] [id number] Social History Tobacco Use Types Packs/Day Years Used Date Smoking Tobacco: Never Assessed Comments Yes Sex and Gender Information Value Date Recorded Sex Assigned at Not on file Legal Sex Female 11:15 PM EDT Gender Identity Not on file Sexual Orientation Not on file documented as of this encounter Plan of Treatment Upcoming Encounters Date Type Department Care Team (Late Contact Info) Description 03/14/2025 10:10 AM EDT Office Visit [facility] [place] [facility] [address] [place] [address] Lj Bettencourt MD [address] [place] [address] 04/12/2025 9:30 AM EST Office Visit [facility] LEGER [address] [facility] [address] Geeta Fuchs PA [address] [facility] [address] [place], [place] [address] documented as of this encounter Procedures Procedure [...] on filedocumented in this encounter Care Teams Powder Carrier Relationship Specialty Start Date End Date Lyla Lozoya DO [address] [place] [address] [employer] - [employer] 03/19/21 documented as of this encounter
--- OUTSIDE RECORDS SUMMARY | 2025-01-31 17:08 | XMS_ITS | Encounter Summary ---
Author Organization [facility] Address [address] [place] [address] Care Team Providers Care Grey Tender Name Role Phone Lyla Lozoya DO Unavailable [phone] Encounter Details Date Type Department Care Team (Late Contact Info) Description 11/14/2022 Abstract [facility] [address] [facility] [place] [address] Leonid Mckeon DO [address] [facility] [address] [place], [facility]11 Social History Tobacco Use Types Packs/Day [...] Office Visit [facility] [place] [facility] [address] [place] [address] Lj Bettencourt MD [address] [place] [address] 04/12/2025 9:30 AM EST Office Visit [facility] [address] [facility] [place] [address] Geeta Fuchs PA [address] [facility] [address] [place], [facility]11 documented as of this encounter Visit Diagnoses Not on filedocumented in this encounter Care Teams Grey Tender Relationship Specialty Start Date End Date Lyla Lozoya DO [address] [facility] [address] [place] [address] PCP - Parvez Lopez 03/19/21 documented as of this encounter
--- OUTSIDE RECORDS SUMMARY | 2025-01-31 17:08 | XMS_ITS | Encounter Summary ---
Author Organization [facility] Address [address] [place] [address] Care Team Providers Care Assistant Librarian Name Role Phone Lyla Lozoya DO Unavailable [phone] Encounter Details Date Type Department Care Team (Late st Contact Info) Description 10/15/2022 Clinisync Result Encounter N[facility]S External Department Unsolicited Leonid Mckeon DO [address] [facility] [address] [place], [place] [address] Social History Tobacco Use Types Packs/Day Years [...] [facility] [place] [facility] [address] [place] [address] Lj Bettencourt MD [address] [place] [address] 04/12/2025 9:30 AM EST Office Visit [facility] [address] [place] [address] Geeta Fuchs PA [address] [facility] [address] [place], [place] [address] documented as of this encounter Procedures Procedure [...] on filedocumented in this encounter Care Teams Assistant Librarian Relationship Specialty Start Date End Date Lyla Lozoya DO [address] [place] [address] [employer] - [employer] 03/19/21 documented as of this encounter
--- OUTSIDE RECORDS SUMMARY | 2025-01-31 17:08 | XMS_ITS | Encounter Summary ---
Author Organization [facility] Address [address] [place] [address] Care Team Providers Care Dynamics Ax Solution Architect Name Role Phone Lyla Lozoya DO Unavailable [phone] Encounter Details Date Type Department Care Team (Late Contact Info) Description 12/02/2022 Abstract [facility] [address] [facility] [place] [address] Leonid Mckeon DO [address] [facility] [address] Mike Meehan, [id number] Social History Tobacco Use Types Packs/Day Years [...] [facility] [address] [place] [address] Lj Bettencourt MD [address] [place] [address] 04/12/2025 9:30 AM EST Office Visit [facility]I [facility]GER [address] [facility] [place] [address] Geeta Fuchs PA [address] [facility] [address] [place], [id number] documented as of this encounter Visit Diagnoses Not on filedocumented in this encounter Care Teams Dynamics Ax Solution Architect Relationship Specialty Start Date End Date Lyla Lozoya DO [address] [facility] [address] [place] [address] PCP - Parvez Lopez 03/19/21 documented as of this encounter
--- OUTSIDE RECORDS SUMMARY | 2025-01-31 17:08 | XMS_ITS | Clinical Summary ---
Author Organization [facility] Address [address] [place] [address] Care Team Providers Care Cna Pct Name Role Phone Unavailable Primary Care Provider [...] 9:30 [place] [address] Geeta Fuchs PA Encounter for weight management 01/18/2025 Bamboo flowsheet [facility] [address] [place] [address] Geeta Fuchs PA 12/21/2024 9:50 AM EDT Office Visit [facility] [address] [place] [address] Geeta Fuchs PA Weight gain; Encounter for weight management 12/21/2024 Bamboo flowsheet [facility] [address] [place] [address] Geeta Fuchs PA 11/23/2024 9:50 AM EDT Office Visit [facility] [address] [place] [address] Leonid Mckeon DO Encounter to discuss test results; PCOS (polycystic ovarian syndrome); Encounter for weight management; Abnormal uterine bleeding (AUB) 11/23/2024 Bamboo flowsheet [facility] [address] [place] [address] Leonid Mckeon DO 11/23/2024 Travel from Last 3 Months Family History [...] EDT Office Visit [facility] [address] [place] [address] Lj Bettencourt MD [address] [place] [address] 04/12/2025 9:30 AM EST Office Visit [facility] [address] [place] [phone] Geeta Fuchs PA [address] [place] [address] Insurance [facility]
--- OUTSIDE RECORDS SUMMARY | 2025-01-31 17:08 | XMS_ITS | Encounter Summary ---
Author Organization [facility] Address [address] [place] [address] Care Team Providers Care Field Sales Trainer Name Role Phone Unavailable Primary Care Provider Unavailabl e Encounter Details Date Type Department Care Team (Late Contact Info) Description 12/30/2022 Abstract [facility]GER [address] [facility] [place] [address] Leonid Mckeon DO [address] [facility] [address] Mike Meehan, [place] [address] Social History Tobacco Use Types Packs/Day Years [...] Upcoming Encounters Date Type Department Care Team ([facility] Contact Info) Description 03/14/2025 10:10 AM EDT Office Visit [facility] [address] [place] [address] Lj Bettencourt MD [address] [place] [address] 04/12/2025 9:30 AM EST Office Visit ALLI LEGER [address] [facility] [place] [address] Geeta Fuchs PA [address] [place] [address] [place] [address] documented as of this encounter Visit Diagnoses Not on filedocumented in this encounter
--- OUTSIDE RECORDS SUMMARY | 2025-01-31 17:08 | XMS_ITS | Encounter Summary ---
Author Organization [facility] Address [address] [place] [address] Care Team Providers Care County Tax Assessor Name Role Phone Unavailable Primary Care Provider Unavailabl e Encounter Details Date Type Department Care Team (Late Contact Info) Description 12/30/2022 Abstract [facility] [address] [facility] [place] [address] Leonid Mckeon DO [address] [facility] [address] Mike Meehan, [place] [address] Social History Tobacco Use Types Packs/Day Years [...] [facility] [address] [place] [address] Lj Bettencourt MD [address] [place] [address] 04/12/2025 9:30 AM EST Office Visit ALLI LEGER [address] [facility] [place] [address] Geeta Fuchs PA [address] [place] [address] [place] [address] documented as of this encounter Visit Diagnoses Not on filedocumented in this encounter
--- OUTSIDE RECORDS SUMMARY | 2025-01-31 17:08 | XMS_ITS | Encounter Summary ---
Author Organization [facility] Address [address] [place] [address] Care Team Providers Care Delicate Fabrics Presser Name Role Phone Unavailable Primary Care Provider Unavailabl e Encounter Details Date Type Department Care Team (Late Contact Info) Description 01/18/2025 Bamboo flowsheet [facility] [address] [place] [address] [place] [address] Geeta Fuchs PA [address] [place] [address] Dr [place], [place] [address] Social History Tobacco Use Types Packs/Day Years [...] Upcoming Encounters Date Type Department Care Team ([facility] Contact Info) Description 03/14/2025 10:10 AM EDT Office Visit [facility] [address] [place] [address] Lj Bettencourt MD [address] [place] [address] 04/12/2025 9:30 AM EST Office Visit [facility]I LEGER [address] [place] [address] [place] [address] Geeta Fuchs PA [address] [place] [address] [place] [address] documented as of this encounter Visit Diagnoses Not on filedocumented in this encounter
--- OUTSIDE RECORDS SUMMARY | 2025-01-31 17:08 | XMS_ITS | Encounter Summary ---
Author Organization [facility] Address [address] [place] [address] Care Team Providers Care Engine Repair Supervisor Name Role Phone Lyla Lozoya DO Unavailable [phone] Encounter Details Date Type Department Care Team (Late Contact Info) Description 11/21/2022 Abstract [facility] [address] [facility] [place] [address] Leonid Mckeon DO [address] [facility] [address] Mike Meehan, [facility]11 Social History Tobacco Use Types Packs/Day [...] [facility] [address] [place] [address] Lj Bettencourt MD [address] [place] [address] 04/12/2025 9:30 AM EST Office Visit ALLI LEGER [address] [facility] [place] [address] Geeta Fuchs PA [address] [facility] [address] [place], [facility]11 documented as of this encounter Visit Diagnoses Not on filedocumented in this encounter Care Teams Engine Repair Supervisor Relationship Specialty Start Date End Date Lyla Lozoya DO [address] [facility] [address] [place] [address] PCP - Parvez Lopez 03/19/21 documented as of this encounter
--- OUTSIDE RECORDS SUMMARY | 2025-01-31 17:08 | XMS_ITS | Encounter Summary ---
Author Organization [facility] Address [address] [place] [address] Care Team Providers Care Talent Acquisition Administrator Name Role Phone Unavailable Primary Care Provider Unavailabl e Encounter Details Date Type Department Care Team (Late Contact Info) Description 02/24/2023 Abstract [facility]I LEGER [address] [place] [address] [place] [address] Geeat Fuchs PA [address] [place] [address] Dr [place], [place] [address] Social History Tobacco Use Types Packs/Day Years [...] Upcoming Encounters Date Type Department Care Team ([facility] Contact Info) Description 03/14/2025 10:10 AM EDT Office Visit [facility] [address] [place] [address] Lj Bettencourt MD [address] [place] [address] 04/12/2025 9:30 AM EST Office Visit ALLI LEGER [address] [facility] [place] [address] Geeta Fuchs PA [address] [facility] [address] documented as of this encounter Visit Diagnoses Not on filedocumented in this encounter
--- OUTSIDE RECORDS SUMMARY | 2025-01-31 17:08 | XMS_ITS | Encounter Summary ---
Author Organization [facility] Address [address] [place] [address] Care Team Providers Care Emergency Medical Service Manager Name Role Phone Unavailable Primary Care Provider Unavailabl e Encounter Details Date Type Department Care Team (Late Contact Info) Description 02/12/2023 Clinisync Result Encounter N[facility]S External Department Unsolicited Oxana Mckeon DO [address] [facility] [address] Mike Meehan, [facility]11 Social History Tobacco Use Types Packs/Day Years [...] Upcoming Encounters Date Type Department Care Team ([facility] Contact Info) Description 03/14/2025 10:10 AM EDT Office Visit [facility] [address] [place] [address] Lj Bettencourt MD [address] [place] [address] 04/12/2025 9:30 AM EST Office Visit ALLI Meehan OBJESSICA [address] [facility] [place] [address] Geeta Fuchs PA [address] [facility] [place] [address] [phone] (work) documented as of this encounter Procedures Procedure Name Priority Date/Time Associated Diagnosis Comments US OB BPP W NON-STRESS 02/12/2023 1:18 PM EDT documented in this encounter Results * US OB BPP W NON-STRESS (02/12/2023 1:18 PM EDT) Anatomical Region Laterality Modality Other 02/12/2023 1:18 PM EDT Narrative 02/12/2023 1:18 [place] [address] Ultrasound Report Signed Patient: ALPA SANTOS MR#: [id number] : 2000 Acct:[id number] Age/Sex: 22 / F ADM Date: 02/12/23 Loc: [facility] 250-[address]: Oxana Mckeon D.O. Ordering Physician: Oxana Mckeon D.O. Date of Service: 02/12/23 Procedure(s): US OB BPP w non-stress Accession Number(s): [id number] cc: Oxana Mckeon D.O.; Physician,Non-Staff M.Serina The [address] [address] Patient Name: ALPA SANTOS MRN: [id number] date: 2000 Sex: F Assigned Patient Location: [facility] Current Patient Location: [facility] Accession/Order Number: [id number] Exam Date: 02/12/2023 12:30 Report Date: 02/12/2023 13:18 At the request of: OXANA MCKEON Procedure: US OB BPP w non-stress EXAM: US OB growth, US OB BPP w non-stress; [id number], [id number] HISTORY: Decreased motion. COMPARISON: growth ultrasound 01/08/2023. [...] Signed By: 02/12/23 1320 DD/ 1318 TD/TT: Chip Tuner: Procedure Note Radiology, Radiologist, MD - 02/12/2023 [place] [address] Ultrasound Report Signed Patient: ALPA SANTOS EMR#: [id number] : 2000Acct:[id number] Age/Sex: 22 / FADM Date: 02/12/23 Loc: [facility] 250-[address]: Oxana Mckeon D.O. Ordering Physician: Oxana Mckeon D.O. Date of Service: 02/12/23 Procedure(s): US OB BPP w non-stress Accession Number(s): [id number] cc: Oxana Mckeon D.O.; Physician,Non-Staff M.D. The [address] [address] Patient Name: ALPA SANTOS MRN: [id number] date: 2000 Sex: F Assigned Patient Location: [facility] Current Patient Location: [facility] Accession/Order Number: [id number] Exam Date: 02/12/2023 12:30 Report Date: 02/12/2023 13:18 At the request of: OXANA MCKEON Procedure: US OB BPP w non-stress EXAM: US OB growth, US OB BPP w non-stress; [id number], [id number] HISTORY: Decreased motion. COMPARISON: growth ultrasound 01/08/2023. [...] 2 Tone: 2 Breathin Fluid: 2 Total: 8/8 heart rate measures 131 bpm. Amniotic fluid index (JESS) [id number] cm. Cervix appears closed. US/US OB BPP [...] Cervantes Signed By:02/12/23 1320 DD/ 1318 TD/TT: Chip Tuner: us Oxana Mckeon DO [facility] Final Result documented in this encounter Visit Diagnoses Not on filedocumented in this encounter
--- OUTSIDE RECORDS SUMMARY | 2025-01-31 17:08 | XMS_ITS | Encounter Summary ---
Author Organization [facility] Address [address] [place] [address] Care Team Providers Care Sales Clerk Food Name Role Phone Unavailable Primary Care Provider Unavailabl e Encounter Details Date Type Department Care Team (Late Contact Info) Description 03/11/2023 Abstract [facility]GER [address] [facility] [place] [address] Leonid Mckeon DO [address] [facility] [address] Mike Meehan, [place] [address] Social History Tobacco Use Types Packs/Day Years [...] Upcoming Encounters Date Type Department Care Team ([facility] Contact Info) Description 03/14/2025 10:10 AM EDT Office Visit [facility] [address] [place] [address] Lj Bettencourt MD [address] [place] [address] 04/12/2025 9:30 AM EST Office Visit ALLI LEGER [address] [facility] [place] [address] Geeta Fuchs PA [address] [place] [address] [place] [address] documented as of this encounter Visit Diagnoses Not on filedocumented in this encounter
[2025-01-31 17:17] VITALS: BP 138/114; PULSE 120; TEMP 36.8; O2SAT 100; BMI 64.4
--- NOTE | 2025-01-31 17:48 | XR_ITS ---
The [place] [id number] Patient Name: ALPA KNIGHT MRN: [id number] date: 2000 Sex: F Assigned Patient Location: ER Current Patient Location: ER Accession/Order Number: [id number] Exam Date: 01/31/2025 18:00 Report Date: 01/31/2025 18:21 At the request of: KACEY SOW MD Procedure: XR tibia fibula LT 2V XR tibia fibula LT 2V 01/31/2025 6:06 PM SIGNS AND SYMPTOMS: ^lower limb ulcer PROTOCOL: Frontal and lateral radiographs of the left tibia and fibula COMPARISON: None FINDINGS: The left tibia and fibula are grossly intact. There is no fracture or dislocation. Visualized left knee and left ankle are intact. There is nonspecific soft tissue swelling consistent with a history of a wound and most likely accompanying cellulitis. No osteolytic or bony destructive process. XR/XR tibia fibula LT 2V IMPRESSION: There is nonspecific soft tissue swelling consistent with a history of a wound and most likely accompanying cellulitis. No osteolytic or bony destructive process. No acute bony injury. Impression dictated by: Fermin Sales M.D. 01/31/2025 6:21 PM Dictation Location: [place] [address] Electronically authenticated by: [id number] Y Date: 01/31/2025 18:21
[2025-01-31 18:24] LABS: Hematocrit 42.2 % (36.0-48.0); Hemoglobin 14.4 g/dL (12.0-16.0); Immature Granulocytes Abs Auto 0.02 10^3/uL (0.00-0.03); Immature Granulocytes Pct Auto 0.3 % (0.0-0.5); Lymphocytes Absolute Auto 1.9 10^3/uL (1.2-3.8); Mean Corpuscular HGB Conc 34.1 g/dL (29.9-35.2); Mean Corpuscular Hemoglobin 27.8 pg (26.7-34.0); Mean Corpuscular Volume 81.5 fL (81.0-99.0); Platelet Count 313 10^3/uL (150-450); Red Blood Count 5.18 10^6/uL (4.20-5.40); White Blood Count 7.8 10^3/uL (4.0-11.0)
--- NOTE | 2025-01-31 18:37 | ED.EXTPRO1 ---
HPI - Extremity Problem General Chief complaint: Extremity Problem, Nontraumatic Stated complaint: POSS CELLULITIS L LEG Time Seen by Provider: 01/31/25 17:25 Source: patient and family Mode of arrival: walk-in Limitations: no limitations History of Present Illness HPI Narrative: The patient is a 24-year-old female who is coming to the ER with a almost 2-month history of left leg ulcer that been chronically there for the last 2 months since November, the patient mentioned that it all started at the possible insect bite and initially she was only redness that progressed to be an ulcer, patient was treated multiple times during those 2 months with initially doxycycline then clindamycin and then ceftriaxone right now when she finished the ceftriaxone yesterday as a daily dose in the infusion center The patient denies any fever chills or any other concerning the redness is limited to the area around the ulcer There is no significant tenderness Related Data Home Medications ?Medication ?Instructions ?Recorded ?Confirmed metformin 500 mg tablet,extended 1,000 mg PO DAILY 01/31/25 01/31/25 release 24 hr phentermine 37.5 mg tablet 37.5 mg PO QAM 01/31/25 01/31/25 Previous Rx's ?Medication ?Instructions ?Recorded betamethasone dipropionate 0.05 % 1 applic topical BID #45 grams 01/31/25 topical ointment Allergies Allergy/AdvReac Type Severity Reaction Status Date / Time codeine Allergy Intermediate Uncoded 02/18/23 11:10 Review of Systems ROS Status of ROS 10 or more systems reviewed and unremarkable except as noted in history and below PFSH PFSH Social History Little interest or pleasure in doing things: not at all Feeling down, depressed, or hopeless: not at all Exam Narrative Exam Narrative: Nurses notes and vital signs reviewed and patient is not hypoxic. Lower extremity: The patient left lower extremity showed an ulcer that is on the lateral aspect of the mid tibia measuring at least to 2 x 3 cm that is oval-shaped, there is a very mild redness around the that is almost 1 cm there is no tenderness on palpation there is no fluctuation no hotness but the ulcer is covered with a necrotizing material. General: Well-appearing and in no apparent distress. Cardiovascular: Regular Rate and Rhythm without murmur, gallop or rub. Respiratory: No accessory muscle use or respiratory distress. Lungs are clear to auscultation, no wheezing, rales or rhonchi Chest Wall: no tenderness Neurological: A&O x4. No cranial nerve dysfunction observed. No truncal ataxia. Moves all extremities. Sensation intact. Psychiatric: Cooperative and interactive. Normal mood and affect. Constitutional Vital Signs, click to edit/add: Last Vital Signs Temp 98.3 F 01/31/25 17:17 Pulse 120 H 01/31/25 17:17 Resp 18 01/31/25 17:17 BP 138/114 H 01/31/25 17:17 Pulse Ox 100 01/31/25 17:17 O2 Del Method Room Air 01/31/25 17:17 Course Vital Signs Vital signs: Vital Signs Temperature 98.3 F 01/31/25 17:17 Pulse Rate 120 H 01/31/25 17:17 Respiratory Rate 18 01/31/25 17:17 Blood Pressure 138/114 H 01/31/25 17:17 Pulse Oximetry 100 01/31/25 17:17 Oxygen Delivery Method Room Air 01/31/25 17:17 Temperature 98.3 F 01/31/25 17:17 Pulse Rate 120 H 01/31/25 17:17 Respiratory Rate 18 01/31/25 17:17 Blood Pressure 138/114 H 01/31/25 17:17 Pulse Oximetry 100 01/31/25 17:17 Oxygen Delivery Method Room Air 01/31/25 17:17 MDM - Extremity (Nontraumatic) MDM Narrative Medical decision making narrative: CBC and chemistry showed no acute pathology and the patient wound looks like chronic ulcer that is not infected mostly inflamed This could be secondary to pyoderma gangrenosum or just a chronic wound Right now the patient wound was discussed with Dr. Sood and he will see the patient within the next few days in the outpatient wound care clinic for possible debridement Right now the patient does not need antibiotic she mostly will need to follow-up with him and she will keep the PICC line until she have a follow-up within the next few days, in case not needed by the end of the week the patient will come back for that to be removed The patient will be covered with a steroid locally for possible inflammation Patient to come back in case of any worsening of symptoms including fever chills or any increase in pain or increasing redness I did explain to the patient that the possibility of this being an inflammation more than infection is most likely because of the patient's history of being treated multiple times with different antibiotic The patient understand that prednisone might increase her blood sugar that was she had a local prednisone prescribed only 1 dose of prednisone given to her before discharge The patient is to follow up with primary care physician in next 2-3 days or to return to the emergency department should any of the signs or symptoms worsen or new symptoms develop. The patient agrees with the following Diagnosis and Treatment plan and the patient will be discharged home. Lab Data Labs: Lab Results 01/31/25 Range/Units 18:19 WBC 7.8 (4.0-11.0) 10^3/uL RBC 5.18 (4.20-5.40) 10^6/uL Hgb 14.4 (12.0-16.0) g/dL Hct 42.2 (36.0-48.0) % MCV 81.5 (81.0-99.0) fL MCH 27.8 (26.7-34.0) pg MCHC 34.1 (29.9-35.2) g/dL RDW 13.2 (11.0-15.0) % Plt Count 313 (150-450) 10^3/uL MPV 9.0 L (9.5-13.5) fL Neut % (Auto) 68.0 (43.0-75.0) % Lymph % (Auto) 24.0 (20.5-60.0) % Boyle % (Auto) 5.3 (1.7-12.0) % Eos % (Auto) 1.9 (0.9-7.0) % Baso % (Auto) 0.5 (0.2-2.0) % Neut # (Auto) 5.3 (1.4-6.5) 10^3/uL Lymph # (Auto) 1.9 (1.2-3.8) 10^3/uL Boyle # (Auto) 0.4 (0.3-0.8) 10^3/uL Eos # (Auto) 0.2 (0.0-0.7) 10^3/uL Baso # (Auto) 0.0 (0.0-0.1) 10^3/uL Abs Immat Gran (auto) 0.02 (0.00-0.03) 10^3/uL Imm/Tot Granulo (auto) 0.3 (0.0-0.5) % Sodium 139 (136-145) mmol/L Potassium 4.3 (3.5-5.1) mmol/L Chloride 101 (98-107) mmol/L Carbon Dioxide 26.6 (21.0-32.0) mmol/L Anion Gap 15.7 BUN 10.0 (7.0-18.0) mg/dL Creatinine 0.62 (0.55-1.02) mg/dL Est GFR ( Amer) >60 (>=60 mL/min/1.73m^2) Est GFR (Non-Af Amer) >60 (>=60 mL/min/1.73m^2) BUN/Creatinine Ratio 16.1 Glucose 86 (74-106) mg/dL Lactate 1.1 (0.4-2.0) mmol/L Calcium 9.7 (8.5-10.1) mg/dL Total Bilirubin 0.5 (0.2-1.0) mg/dL AST 41 H (15-37) U/L ALT 36 (14-59) U/L Alkaline Phosphatase 121 H (46-116) U/L Total Protein 8.3 H (6.4-8.2) g/dL Albumin 3.8 (3.4-5.0) g/dL Globulin 4.5 g/dL Albumin/Globulin Ratio 0.8 Serum HCG, Qual Negative (NEGATIVE) Discharge Plan Discharge Chief Complaint: Extremity Problem, Nontraumatic Clinical Impression: Leg ulcer Patient Disposition: Home, Self-Care Time of Disposition Decision: 18:56 Condition: Good Prescriptions / Home Meds: New betamethasone dipropionate 0.05 % ointment 1 applic topical BID Qty: 45 0RF No Action metformin 500 mg tablet extended release 24 hr 1,000 mg PO DAILY phentermine 37.5 mg tablet 37.5 mg PO QAM Print Language: Macanese Instructions: Chronic Wounds (ED) Referrals: Wound care clinic [Other] - As soon as possible Referral Note: Please call for an appointment tomorrow NO PLUMMER [Primary Care Provider, Family Practice] - 1 week Jose Juan Sood DPM [Physician, Podiatry] - 1 week Discharge Date/Time: 01/31/25 19:31
[2025-01-31 18:41] LABS: Alanine Aminotransferase 36 U/L (14-59); Albumin Globulin Ratio 0.8; Albumin Level 3.8 g/dL (3.4-5.0); Alkaline Phosphatase 121 U/L (46-116); Anion Gap 15.7; Aspartate Amino Transferase 41 U/L (15-37); Blood Urea Nitrogen 10.0 mg/dL (7.0-18.0); Calcium 9.7 mg/dL (8.5-10.1); Carbon Dioxide 26.6 mmol/L (21.0-32.0); Chloride 101 mmol/L (98-107); Estimated GFR (African America >60 (>=60 mL/min/1.73m^2); Estimated GFR (Non-African Ame >60 (>=60 mL/min/1.73m^2); Globulin 4.5 g/dL; Glucose 86 mg/dL (74-106); Potassium 4.3 mmol/L (3.5-5.1); Sodium 139 mmol/L (136-145); Total Protein 8.3 g/dL (6.4-8.2)
[2025-01-31 18:43] LABS: Lactate/Lactic Acid 1.1 mmol/L (0.4-2.0)
[2025-01-31] MEDS: PREDNISONE 20 MG TABLET 40 MG PO (19:29)
--- NOTE | 2025-01-31 19:31 | PC.NURSE ---
i gave this patient verbal and written discharge orders along with 1 Rx and this patient voices yes to understanding these both. at time of discharge this patient voices no concerns, needs and shows no signs of distress
== END 2025-01-31 19:31 | disposition home or self-care (01) ==
PROVIDERS: Emergency Provider Emergency Medicine; PCP Nurse Practitioner Family
DX: L97.929 Non-pressure chronic ulcer of unspecified part of left lower leg with unspecified severity (principal)
CPT/HCPCS: 36415; 73590; 80053; 83605; 84703; 85025; 99283; 99285; J7512

== ENCOUNTER 2025-02-01 10:03 | Outpatient (OUT) | payer BC, SELFPAY ==
--- OUTSIDE RECORDS SUMMARY | 2025-01-18 09:30 | XMS_ITS | Encounter Summary ---
Author Organization [facility] Address [address] [facility] [place] [address] Care Team Providers Care Knitter Wire Mesh Name Role Phone Unavailable Primary Care Provider Unavailabl e Reason for Visit * Reason Comments encounter for weight management Encounter Details Date Type Department Care Team ([facility] st Contact Info) Description 01/18/2025 9:30 AM EDT Office Visit [facility] [address] [place] [phone] Geeta Fuchs PA [address] [place] [address] Encounter for weight management Social History Tobacco [...] Morbid obesity with BMI of 45.0-49.9, adult ([facility]) PCOS (polycystic ovarian syndrome) Weight loss Past [...] nursing note reviewed. Exam conducted with a manager paid present. Assessment/Plan Encounter Diagnosis Name Primary? Encounter [...] Care Team (Late st Contact Info) Description 03/14/2025 10:10 AM EDT [facility] [address] [place] [address] Lj Bettencourt MD [address] [place] [address] 04/12/2025 9:30 AM EST Office Visit [facility] [address] [place] [address] Geeta Fuchs PA [address] [place] [address] documented as of this encounter Procedures Procedure Name Priority Date/Time Associated Diagnosis Comments PAP SMEAR Routine 10/25/2024 12:00 AM EDT documented in this encounter Results * Pap Smear (10/25/2024 12:00 AM EDT) Swab Cervical swab / Unknown Leonid Mckeon DO LAB CYTOLOGY ORDERABLES Final Re sult EXTERNAL LAB documented in this encounter Visit Diagnoses Diagnosis Encounter for weight management documented in this encounter
--- OUTSIDE RECORDS SUMMARY | 2025-02-01 10:07 | XMS_ITS | Encounter Summary ---
Author Organization [facility] Address [address] [place] [address] Care Team Providers Care Sand Miller Name Role Phone Lyla Lozoya DO Unavailable [phone] Encounter Details Date Type Department Care Team (Late Contact Info) Description 11/14/2022 Abstract [facility]GER [address] [facility] [place] [address] Leonid Mckeon DO [address] [facility] [address] Mike Meehan, [facility]11 Social History Tobacco Use Types Packs/Day Years [...] [facility] [address] [place] [address] Lj Bettencourt MD [address] [place] [address] 04/12/2025 9:30 AM EST Office Visit ALLI LEGER [address] [facility] [place] [address] Geeta Fuchs PA [address] [facility] [address] [place], [facility]11 documented as of this encounter Visit Diagnoses Not on filedocumented in this encounter Care Teams Sand Miller Relationship Specialty Start Date End Date Lyla Lozoya DO [address] [facility] [address] [place] [address] PCP - Parvez Lopez 03/19/21 documented as of this encounter
--- OUTSIDE RECORDS SUMMARY | 2025-02-01 10:07 | XMS_ITS | Encounter Summary ---
Author Organization [facility] Address [address] [place] [address] Care Team Providers Care Pension Administrator Name Role Phone Unavailable Primary Care Provider Unavailabl e Encounter Details Date Type Department Care Team (Late Contact Info) Description 01/10/2023 Abstract [facility]GER [address] [place] [address] Leonid Mckeon DO [address] [facility] [address] Mike [place], [place] [address] Social History Tobacco Use Types Packs/Day Years [...] Upcoming Encounters Date Type Department Care Team ([facility] Contact Info) Description 03/14/2025 10:10 AM EDT Office Visit [facility] [address] [place] [address] Lj Bettencourt MD [address] [place] [address] 04/12/2025 9:30 AM EST Office Visit [facility]I LEGER [address] [place] [address] Geeta Fuchs PA [address] [place] [address] [place] [address] documented as of this encounter Visit Diagnoses Not on filedocumented in this encounter
--- OUTSIDE RECORDS SUMMARY | 2025-02-01 10:07 | XMS_ITS | Encounter Summary ---
Author Organization [facility] Address [address] [place] [address] Care Team Providers Care Forestry Support Specialist Name Role Phone Unavailable Primary Care Provider Unavailabl e Encounter Details Date Type Department Care Team (Late Contact Info) Description 01/18/2025 Bamboo flowsheet [facility]I LEGER [address] [place] [address] [place] [address] Geeta Fuchs PA [address] [place] [address] Dr [place], [place] [address] Social History Tobacco Use Types Packs/Day Years [...] Upcoming Encounters Date Type Department Care Team ([facility] Contact Info) Description 03/14/2025 10:10 AM EDT Office Visit [facility] [address] [place] [address] Lj Bettencourt MD [address] [place] [address] 04/12/2025 9:30 AM EST Office Visit [facility]I LEGER [address] [place] [address] [place] [address] Geeta Fuchs PA [address] [place] [address] [place] [address] documented as of this encounter Visit Diagnoses Not on filedocumented in this encounter
--- OUTSIDE RECORDS SUMMARY | 2025-02-01 10:07 | XMS_ITS | Encounter Summary ---
Author Organization [facility] Address [address] [place] [address] Care Team Providers Care Upset Welding Machine Operator Name Role Phone Lyla Lozoya DO Unavailable [phone] Encounter Details Date Type Department Care Team (Late st Contact Info) Description 10/15/2022 Clinisync Result Encounter N[facility] External Department Unsolicited Leonid Mckeon DO [address] [facility] [address] [place], [place] [id number] Social History Tobacco Use Types Packs/Day Years [...] [facility] [address] [place] [address] Lj Bettencourt MD [address] [place] [address] 04/12/2025 9:30 AM EST Office Visit [facility]I LEGER [address] [facility] [place] [address] Geeta Fuchs PA [address] [facility] [address] [place], [place] [id number] documented as of this encounter Procedures Procedure [...] on filedocumented in this encounter Care Teams Upset Welding Machine Operator Relationship Specialty Start Date End Date Lyla Lozoya DO [address] [place] [address] MCKINLEY - Parvez Commercial 03/19/21 documented as of this encounter
--- OUTSIDE RECORDS SUMMARY | 2025-02-01 10:07 | XMS_ITS | Encounter Summary ---
Author Organization [facility] Address [address] [place] [address] Care Team Providers Care Pyrotechnic Assembler Name Role Phone Unavailable Primary Care Provider Unavailabl e Encounter Details Date Type Department Care Team (Late Contact Info) Description 02/24/2023 Abstract [facility]I LEGER [address] [place] [address] [place] [address] Geeta Fuchs PA [address] [place] [address] Dr [place], [place] [address] Social History Tobacco Use Types Packs/Day Years [...] Upcoming Encounters Date Type Department Care Team ([facility] Contact Info) Description 03/14/2025 10:10 AM EDT Office Visit [facility] [address] [place] [address] Lj Bettencourt MD [address] [place] [address] 04/12/2025 9:30 AM EST Office Visit [facility]I LEGER [address] [facility] [place] [address] Geeta Fuchs PA [address] [facility] [place] [address] documented as of this encounter Visit Diagnoses Not on filedocumented in this encounter
--- OUTSIDE RECORDS SUMMARY | 2025-02-01 10:07 | XMS_ITS | Encounter Summary ---
Author Organization [facility] Address [address] [place] [address] Care Team Providers Care Peanut Roaster Name Role Phone Unavailable Primary Care Provider Unavailabl e Encounter Details Date Type Department Care Team (Late Contact Info) Description 12/30/2022 Abstract [facility]GER [address] [facility] [place] [address] Leonid Mckeon DO [address] [facility] [address] Mike [place], [place] [address] Social History Tobacco Use Types Packs/Day Years [...] Upcoming Encounters Date Type Department Care Team ([facility] Contact Info) Description 03/14/2025 10:10 AM EDT Office Visit [facility] [address] [place] [address] Lj Bettencourt MD [address] [place] [address] 04/12/2025 9:30 AM EST Office Visit [facility]I LEGER [address] [facility] [place] [place] [address] Geeta Fuchs PA [address] [place] [address] [place] [address] documented as of this encounter Visit Diagnoses Not on filedocumented in this encounter
--- OUTSIDE RECORDS SUMMARY | 2025-02-01 10:07 | XMS_ITS | Encounter Summary ---
Author Organization [facility] Address [address] [place] [address] Care Team Providers Care French Binder Name Role Phone Lyla Lozoya DO Unavailable Encounter Details Date Type Department Care Team (Late Contact Info) Description 12/02/2022 Abstract [facility] LEGER [address] [facility] [place] [place] [address] Leonid Mckeon DO [address] [facility] [address] [place], [id number] Social History Tobacco Use Types Packs/Day Years [...] [facility] [address] [place] [address] Lj Bettencourt MD [address] [place] [address] 04/12/2025 9:30 AM EST Office Visit ALLI LEGER [address] [facility] [place] [place] [address] Geeta Fuchs PA [address] [facility] [address] [place], [id number] documented as of this encounter Visit Diagnoses Not on filedocumented in this encounter Care Teams French Binder Relationship Specialty Start Date End Date Lyla Lozoya DO [address] [facility] [address] [place] [address] PCP - Parvez Lopez 03/19/21 documented as of this encounter
--- OUTSIDE RECORDS SUMMARY | 2025-02-01 10:07 | XMS_ITS | Clinical Summary ---
Author Organization [facility] Address [address] [place] [address] Care Team Providers Care Building Services Supervisor Name Role Phone Unavailable Primary Care Provider [...] 9:30 [place] [address] Geeta Fuchs PA Encounter for weight management 01/18/2025 Bamboo flowsheet [facility]an LEGER [address] [place] [address] Geeta Fuchs PA 12/21/2024 9:50 AM EDT Office Visit [facility] [address] [place] [address] Geeta Fuchs PA Weight gain; Encounter for weight management 12/21/2024 Bamboo flowsheet [facility]GER [address] [place] [address] Geeta Fuchs PA 11/23/2024 9:50 AM EDT Office Visit [facility] [address] [place] [address] Leonid Mckeon DO Encounter to discuss test results; PCOS (polycystic ovarian syndrome); Encounter for weight management; Abnormal uterine bleeding (AUB) 11/23/2024 Bamboo flowsheet [facility] [address] [place] [address] Leonid Mckeon DO 11/23/2024 Travel from Last [...] [facility] [address] [place] [address] Lj Bettencourt MD [address] [place] [address] 04/12/2025 9:30 AM EST Office Visit [facility] [address] [place] [address] Geeta Fuchs PA [address] [place] [address] Insurance [facility]
--- OUTSIDE RECORDS SUMMARY | 2025-02-01 10:07 | XMS_ITS | Encounter Summary ---
Author Organization [facility] Address [address] [place] [address] Care Team Providers Care Transportation Equipment Painter Name Role Phone Lyla Lozoya DO Unavailable [phone] Encounter Details Date Type Department Care Team (Late st Contact Info) Description 10/15/2022 Clinisync Result Encounter N[facility]S External Department Unsolicited Leonid Mckeon DO [address] [facility] [address] [place], [place] [id number] Social History Tobacco Use Types Packs/Day Years [...] [facility] [address] [place] [address] Lj Bettencourt MD [address] [place] [address] 04/12/2025 9:30 AM EST Office Visit ALLI LEGER [address] [place] [address] Geeta Fuchs PA [address] [facility] [address] [place], [place] [address] documented as of this encounter Procedures Procedure [...] on filedocumented in this encounter Care Teams Transportation Equipment Painter Relationship Specialty Start Date End Date Lyla Lozoya DO [address] [place] [address] MCKINLEY - Parvez Commercial 03/19/21 documented as of this encounter
--- OUTSIDE RECORDS SUMMARY | 2025-02-01 10:07 | XMS_ITS | Encounter Summary ---
Author Organization [facility] Address [address] [place] [address] Care Team Providers Care Water Supply Technician Name Role Phone Unavailable Primary Care Provider Unavailabl e Encounter Details Date Type Department Care Team (Late Contact Info) Description 03/11/2023 Abstract [facility]ard LEGER [address] [facility] [place] [address] Leonid Mckeon DO [address] [facility] [address] [place], [place] [address] Social History Tobacco Use Types Packs/Day Years [...] Upcoming Encounters Date Type Department Care Team ([facility] Contact Info) Description 03/14/2025 10:10 AM EDT Office Visit [facility] [address] [place] [address] Lj Bettencourt MD [address] [place] [address] 04/12/2025 9:30 AM EST Office Visit ALLI LEGER [address] [facility] [place] [address] Geeta Fuchs PA [address] [place] [address] [place] [address] documented as of this encounter Visit Diagnoses Not on filedocumented in this encounter
--- OUTSIDE RECORDS SUMMARY | 2025-02-01 10:07 | XMS_ITS | Encounter Summary ---
Author Organization [facility] Address [address] [place] [address] Care Team Providers Care Scheduling Clerk Name Role Phone Lyla Lozoya DO Unavailable [phone] Encounter Details Date Type Department Care Team (Late Contact Info) Description 11/21/2022 Abstract [facility]ard LEGER [address] [facility] [place] [address] Leonid Mckeon DO [address] [facility] [address] [place], [facility]11 Social History Tobacco Use Types Packs/Day Years [...] [facility] [address] [place] [address] Lj Bettencourt MD [address] [place] [address] 04/12/2025 9:30 AM EST Office Visit ALLI LEGER [address] [facility] [place] [address] Geeta Fuchs PA [address] [facility] [address] [place], [facility]11 documented as of this encounter Visit Diagnoses Not on filedocumented in this encounter Care Teams Scheduling Clerk Relationship Specialty Start Date End Date Lyla Lozoya DO [address] [facility] [address] [place] [address] PCP - Parvez Lopez 03/19/21 documented as of this encounter
--- OUTSIDE RECORDS SUMMARY | 2025-02-01 10:07 | XMS_ITS | Encounter Summary ---
Author Organization [facility] Address [address] [place] [address] Care Team Providers Care Stock Preparation Operator Name Role Phone Unavailable Primary Care Provider Unavailabl e Encounter Details Date Type Department Care Team (Late Contact Info) Description 02/20/2023 Abstract [facility]ard LEGER [address] [facility] [place] [address] Leonid Mckeon DO [address] [facility] [address] [place], [place] [address] Social History Tobacco Use Types Packs/Day Years [...] Care Team ([facility] Contact Info) Description 03/14/2025 10:10 AM EDT Office Visit [facility] [address] [place] [address] Lj Bettencourt MD [address] [place] [address] 04/12/2025 9:30 AM EST Office Visit ALLI LEGER [address] [facility] [place] [address] Geeta Fuchs PA [address] [place] [address] [place] [address] documented as of this encounter Visit Diagnoses Not on filedocumented in this encounter
--- OUTSIDE RECORDS SUMMARY | 2025-02-01 10:07 | XMS_ITS | Encounter Summary ---
Author Organization [facility] Address [address] [place] [address] Care Team Providers Care Construction Trades Contractor Name Role Phone Unavailable Primary Care Provider Unavailabl e Encounter Details Date Type Department Care Team (Late Contact Info) Description 02/12/2023 Clinisync Result Encounter NOMS External Department Unsolicited Oxana Mckeon DO [address] [facility] [address] [place], [facility]11 Social History Tobacco Use Types Packs/Day Years [...] Upcoming Encounters Date Type Department Care Team ([facility] Contact Info) Description 03/14/2025 10:10 AM EDT Office Visit [facility] [address] [place] [address] Lj Bettencourt MD [address] [place] [address] 04/12/2025 9:30 AM EST Office Visit ALLI [place] OBJESSICA [address] [facility] [place] [place] [address] Geeta Fuchs PA [address] [facility] [place] [address] [phone] (work) documented as of this encounter Procedures Procedure Name Priority Date/Time Associated Diagnosis Comments US OB BPP W NON-STRESS 02/12/2023 1:18 PM EDT documented in this encounter Results * US OB BPP W NON-STRESS (02/12/2023 1:18 PM EDT) Anatomical Region Laterality Modality Other 02/12/2023 1:18 PM EDT Narrative 02/12/2023 1:18 [place] [address] Ultrasound Report Signed Patient: ALPA SANTOS MR#: [id number] : 2000 Acct:[id number] Age/Sex: 22 / F ADM Date: 02/12/23 Loc: [facility] 250-[address]: Oxana Mckeon D.O. Ordering Physician: Oxana Mckeon D.O. Date of Service: 02/12/23 Procedure(s): US OB BPP w non-stress Accession Number(s): [id number] cc: Oxana Mckeon D.O.; Physician,Non-Staff M.Serina The [address] [address] Patient Name: ALPA SANTOS MRN: [id number] date: 2000 Sex: F Assigned Patient Location: [facility] Current Patient Location: [facility] Accession/Order Number: [id number] Exam Date: 02/12/2023 12:30 Report Date: 02/12/2023 13:18 At the request of: OXANA MCKEON Procedure: US OB BPP w non-stress EXAM: US OB growth, US OB BPP w non-stress; [id number], [id number] HISTORY: Decreased motion. COMPARISON: growth ultrasound 01/08/2023. [...] Signed By: 02/12/23 1320 DD/ 1318 TD/TT: Application Dba: Procedure Note Radiology, Radiologist, MD - 02/12/2023 [place] [address] Ultrasound Report Signed Patient: ALPA SANTOS EMR#: [id number] : 2000Acct:[id number] Age/Sex: 22 / FADM Date: 02/12/23 Loc: [facility] 250-[address]: Oxana Mckeon D.O. Ordering Physician: Oxana Mckeon D.O. Date of Service: 02/12/23 Procedure(s): US OB BPP w non-stress Accession Number(s): [id number] cc: Oxana Mckeon D.O.; Physician,Non-Staff M.D. The [address] [address] Patient Name: ALPA SANTOS MRN: [id number] date: 2000 Sex: F Assigned Patient Location: [facility] Current Patient Location: [facility] Accession/Order Number: [id number] Exam Date: 02/12/2023 12:30 Report Date: 02/12/2023 13:18 At the request of: OXANA MCKEON Procedure: US OB BPP w non-stress EXAM: US OB growth, US OB BPP w non-stress; [id number], [id number] HISTORY: Decreased motion. COMPARISON: growth ultrasound 01/08/2023. [...] measures 131 bpm. Amniotic fluid index (JESS) [id number] cm. Cervix appears closed. US/US OB BPP [...] less than 3 percentile. Electronically authenticated by: DVAID CERVANTES Date: 02/12/2023 13:18 Dictated By: David Cervantes Signed By:02/12/23 1320 DD/ 1318 TD/TT: Application Dba: us Oxana Mckeon DO [facility] Final Result documented in this encounter Visit Diagnoses Not on filedocumented in this encounter
--- OUTSIDE RECORDS SUMMARY | 2025-02-01 10:07 | XMS_ITS | Encounter Summary ---
Author Organization [facility] Address [address] [place] [address] Care Team Providers Care Occupational Therapist Rehab Manager Name Role Phone Unavailable Primary Care Provider Unavailabl e Encounter Details Date Type Department Care Team (Late Contact Info) Description 12/30/2022 Abstract [facility]ard LEGER [address] [facility] [place] [address] Leonid Mckeon DO [address] [facility] [address] Mike [place], [place] [address] Social History Tobacco Use Types Packs/Day Years [...] Upcoming Encounters Date Type Department Care Team ([facility] Contact Info) Description 03/14/2025 10:10 AM EDT Office Visit [facility] [address] [place] [address] Lj Bettencourt MD [address] [place] [address] 04/12/2025 9:30 AM EST Office Visit ALLI LEGER [address] [facility] [place] [address] Geeta Fuchs PA [address] [place] [address] [place] [address] documented as of this encounter Visit Diagnoses Not on filedocumented in this encounter
== END 2025-02-01 10:04 | disposition home or self-care (01) ==
LOC: WC 10:04
PROVIDERS: PCP Nurse Practitioner Family; Visit Provider Physician Assistant
DX: L97.822 Non-pressure chronic ulcer of other part of left lower leg with fat layer exposed (principal)
CPT/HCPCS: G0463

== ENCOUNTER 2025-02-02 10:42 | Outpatient (RCR) | payer BC, SELFPAY ==
[2025-01-21 08:28] VITALS: BP 136/94; PULSE 77; TEMP 36.4; O2SAT 100
[2025-01-22 10:38] VITALS: BP 132/91; PULSE 91; TEMP 36.7; O2SAT 99
[2025-01-23 12:23] VITALS: BP 127/79; PULSE 88; TEMP 36.7; O2SAT 99
[2025-01-24 10:05] VITALS: BP 138/96; PULSE 79; TEMP 36.1; O2SAT 98
[2025-01-25 10:00] VITALS: BP 108/68; PULSE 96; TEMP 36.6; O2SAT 98
[2025-01-26 10:12] VITALS: BP 124/86; PULSE 88; TEMP 36.1; O2SAT 97
[2025-01-27 10:00] VITALS: BP 147/86; PULSE 97; TEMP 36.2; O2SAT 98
[2025-01-28 10:09] VITALS: PULSE 105; TEMP 36.9; O2SAT 127
[2025-01-29 10:31] VITALS: BP 129/84; PULSE 100; TEMP 36.7
[2025-01-30 13:03] VITALS: BP 122/86; PULSE 100; TEMP 36.5
--- NOTE | 2025-02-02 10:42 | PC.NURSE ---
1035: Pt. to [facility] amb. for mid-line removal. Seated in recliner. Midline to RUE without s&s of infection or infiltration. Flushed with saline. Dressing removed. Midline d/c'd, pressure to site. Line measures 15 cm with cath. tip intact. Site covered with cotton balls and secured with Tegaderm dressing. Pt. tolerates without c/o. D/c'd amb. to home.
== END 2025-02-15 23:59 | disposition home or self-care (01) ==
LOC: INF 10:42
PROVIDERS: Visit Provider Nurse Practitioner Family
DX: L03.90 Cellulitis, unspecified (principal)
CPT/HCPCS: 36410; 96365; J0696

== ENCOUNTER 2025-02-15 10:59 | Outpatient (OUT) | payer BC, SELFPAY ==
--- OUTSIDE RECORDS SUMMARY | 2025-02-15 11:01 | XMS_ITS | Patient Health Record ---
Author Organization [facility] [place] Address [address] [place] [address] Care Team Providers Care Postal Service Clerk Name Role Phone Lavinia Soto Primary Care Provider Allergies Allergen (clinical drug ingredient) Drug/Non Drug Allergy documented on EMR Reaction Allergy Type Onset Date Status codeine Codeine vomiting Drug Allergy Active Results Component Value Reference Range Notes Aerobic Culture Reviewed date:01/25/2025 10:37:17 AM Interpretation: Performing Lab: Notes/Report: [facility] , Aerobic Culture See Below For Report Aerobic Culture Aerobic Culture No growth after 18-24 hours. Aerobic Culture Aerobic Culture Aerobic Culture Aerobic Culture No growth in 36 - 48 hours. Aerobic Culture Aerobic Culture Performed at: [facility] Aerobic Culture Aerobic Culture [address], [place] [id number] Aerobic Culture Aerobic Culture Natural Science Curator: Travis Campuzano PhD, Phone: [phone] Aerobic Culture Performing Lab: see note LC - [facility] LB SEE REPORT - Psych Tech Id information not found for OBX-specific antique furniture reproducer legend Anaerobic Culture Reviewed date:01/25/2025 10:37:17 AM Interpretation: Performing Lab: Notes/Report: [facility] , Anaerobic Culture See Below For Report Anaerobic Culture Anaerobic Culture No aerobic or anaerobic growth in 72 hours. Anaerobic Culture Performing Lab: see note LC - [facility] LB Aerobic Culture Reviewed date:01/25/2025 10:37:17 AM Interpretation: Performing Lab: Notes/Report: [facility] , Aerobic Culture See Below For Report Aerobic Culture Aerobic Culture No growth after 18-24 hours. Aerobic Culture Aerobic Culture Aerobic Culture Aerobic Culture No growth in 36 - 48 hours. Aerobic Culture Aerobic Culture Performed at: - [facility] Aerobic Culture Aerobic Culture [address], [place] [id number] Aerobic Culture Aerobic Culture Natural Science Curator: Travis Campuzano PhD, Phone: [phone] Aerobic Culture Performing Lab: see note - [facility] LB SEE REPORT - Psych Tech Id information not found for OBX-specific antique furniture reproducer legend CBC AUTO DIFF Reviewed date:02/01/2025 12:13:19 PM Interpretation: Performing Lab: Notes/Report: [facility] , White Blood Count 7.8 4.0-11.0 10 3/uL Red Blood Count 5.18 4.20-5.40 10 6/uL Hemoglobin 14.4 12.0-16.0 g/dL Hematocrit 42.2 36.0-48.0 % Mean Corpuscular Volume 81.5 81.0-99.0 fL Mean Corpuscular Hemoglobin 27.8 26.7-34.0 pg Mean Corpuscular HGB Conc 34.1 29.9-35.2 g/dL Red Cell Distribution Width 13.2 11.0-15.0 % Platelet Count 313 150-450 10 3/uL Mean Platelet Volume 9.0 9.5-13.5 fL Neutrophils Percent Auto 68.0 43.0-75.0 % Lymphocytes Percent Auto 24.0 20.5-60.0 % Monocytes Percent Auto 5.3 1.7-12.0 % Eosinophils Percent Auto 1.9 0.9-7.0 % Basophils Percent Auto 0.5 0.2-2.0 % Immature Granulocytes Pct Auto 0.3 0.0-0.5 % Neutrophils Absolute Auto 5.3 1.4-6.5 10 3/uL Lymphocytes Absolute Auto 1.9 1.2-3.8 10 3/uL Monocytes Absolute Auto 0.4 0.3-0.8 10 3/uL Eosinophils Absolute Auto 0.2 0.0-0.7 10 3/uL Basophils Absolute Auto 0.0 0.0-0.1 10 3/uL Immature Granulocytes Abs Auto 0.02 0.00-0.03 10 3/uL Performing Lab: see note ML - [facility] LB LACTATE or LACTIC ACID Reviewed date:02/01/2025 12:13:19 PM Interpretation: Performing Lab: Notes/Report: [facility] , Lactate/Lactic Acid 1.1 0.4-2.0 mmol/L Performing Lab: see note ML - [facility] LB XR tibia fibula LT 2V Reviewed date:02/01/2025 12:13:19 PM Interpretation: Performing Lab: Notes/Report: Source Facility: [facility]-[address] [place] [address] [place] [address] XRay Report Signed Patient: ALPA SANTOS MR#: [id number] : 2000 Acct:[id number] Age/Sex: 24 / F ADM Date: 01/31/25 Loc: ER Attending Dr: Ordering Physician: Clara Sow Date of Service: 01/31/25 Procedure(s): XR tibia fibula LT 2V Accession Number(s): [id number] cc: LAVINIA SOTO ; Clara Sow [place] [address] Patient Name: ALPA SANTOS MRN: [id number] date: 2000 Sex: F Assigned Patient Location: ER Current Patient Location: ER Accession/Order Number: [id number] Exam Date: 01/31/2025 18:00 Report Date: 01/31/2025 18:21 At the request of: CLARA SOW MD Procedure: XR tibia fibula LT 2V XR tibia fibula LT 2V 01/31/2025 6:06 PM SIGNS AND SYMPTOMS: lower limb ulcer PROTOCOL: Frontal and lateral radiographs of the left tibia and fibula COMPARISON: None FINDINGS: The left tibia and fibula are grossly intact. There is no fracture or dislocation. Visualized left knee and left ankle are intact. There is nonspecific soft tissue swelling consistent with a history of a wound and most likely accompanying cellulitis. No osteolytic or bony destructive process. XR/XR tibia fibula LT 2V IMPRESSION: There is nonspecific soft tissue swelling consistent with a history of a wound and most likely accompanying cellulitis. No osteolytic or bony destructive process. No acute bony injury. Impression dictated by: Fermin Sales M.D. 01/31/2025 6:21 PM Dictation Location: [place] [address] Electronically authenticated by: [id number] Y Date: 01/31/2025 18:21 Dictated By: Fermin Sales M.D. Signed By: 01/31/251823 DD/ 20 TD/TT: Transition Coach: BENJAMIN Qualitative* Reviewed date:02/01/2025 12:13:19 PM Interpretation: Performing Lab: Notes/Report: [facility] , HCG Qualitative NEGATIVE NEGATIVE Performing Lab: see note ML - [facility] LB PROF 14(COMP METB) Reviewed date:02/01/2025 12:13:19 PM Interpretation: Performing Lab: Notes/Report: [facility] , Sodium 139 136-145 mmol/L Potassium 4.3 3.5-5.1 mmol/L Chloride 101 98-107 mmol/L Carbon Dioxide 26.6 21.0-32.0 mmol/L Anion Gap 15.7 Glucose 86 74-106 mg/dL Blood Urea Nitrogen 10.0 7.0-18.0 mg/dL Creatinine 0.62 0.55-1.02 mg/dL Estimated GFR ( Vaishali >60 >=60 mL/min/1.73m 2 Estimated GFR (Non- Ashley >60 >=60 mL/min/1.73m 2 BUN Creatinine Ratio 16.1 Calcium 9.7 8.5-10.1 mg/dL Bilirubin Total 0.5 0.2-1.0 mg/dL Aspartate Amino Transferase 41 15-37 U/L Alanine Aminotransferase 36 14-59 U/L Alkaline Phosphatase 121 46-116 U/L Total Protein 8.3 6.4-8.2 g/dL Albumin Level 3.8 3.4-5.0 g/dL Globulin 4.5 Albumin Globulin Ratio 0.8 Performing Lab: see note ML - [facility] LB Reason For Referral Reason PCOS , patient reque sting referral Diagnosis 1 PCOS (polycystic ova jaret syndrome) (E28.2) Referral Organization [facility] Medicine Referring Provider First Name Lavinia Referring Provider Last Name Brittany Referring Provider Speciality Family Med stevie Referred Provider Lj Bettencourt Referred Provider Specialty [...] Risk Notes Problem Polycystic ovary syndrome (disorder) (502955296) PCOS (polycystic ovarian syndrome) (E28.2) Active confirmed Problem Morbid obesity (976217170) Class 3 obesity (E66.01) Active confirmed Vital Signs Blood pressure diastolic 82 mm Hg 01/31/2025 Height 62 in 01/31/2025 Blood pressure systolic 136 mm Hg 01/31/2025 Weight 332.4 lbs 01/31/2025 BMI 60.79 kg/m2 01/31/2025 Encounters Encounter Location Date Provider Diagnosis [place] [address] [place] [address] 01/07/2025 Lavinia Soto Cellulitis L03.[address] [address] 01/20/2025 Lavinia Soto Cellulitis L03.90 an d PCOS (polycystic ovarian syndrome) E28.[address] [address] 01/31/2025 Lavinia Soto Abscess L02.91 [place] [address] [place] [address] 01/07/2025 Lavinia Soto [address] [address] 01/10/2025 Lavinia Soto Cellulitis L03.[address] [address] 01/10/2025 Lavinia Soto Fatigue R53.[address] [address] 01/21/2025 Lavinia Soto [place] [address] [place] [address] 01/24/2025 Lavinia Soto [facility] [address] [place] [address] 01/25/2025 Lavinia Soto [facility] [address] [place] [facility] [address] 01/26/2025 Lavinia Soto [facility] [address] [place] [address] 02/01/2025 Lavinia Soto Assessments Encounter Date Diagnosis (ICD [...] ACCESS PPO PLUS LOCAL PLAN [address] [place] [phone] [id number] Mart Santos Spouse - patient is the spouse of the insured Medical (General) History Surgical History Surgery Date(Month/Year) wisdom teeth removed c section 2022
--- OUTSIDE RECORDS SUMMARY | 2025-02-15 11:01 | XMS_ITS | Encounter Summary ---
Author Organization [facility] Address [address] [place] [address] Care Team Providers Care Russian Language Professor Name Role Phone Lyla Lozoya DO Unavailable [phone] Encounter Details Date Type Department Care Team (Late Contact Info) Description 10/15/2022 Clinisync Result Encounter [facility] External Department Unsolicited Leonid Mckeon DO [address] [place], [place] [id number] Social History Tobacco Use Types Packs/Day Years Used Date Smoking Tobacco: Never Assessed Comments Yes Sex and Gender Information Value Date Recorded Sex Assigned at Not on file Legal Sex Female 11:15 PM EDT Gender Identity Not on file Sexual Orientation Not on file documented as of this encounter Plan of Treatment Upcoming Encounters Date Type Department Care Team ([facility] Contact Info) Description 04/12/2025 9:30 AM EST Office Visit [facility] [address] [place] [address] Geeta Fuchs PA [address] [place] [address] 04/18/2025 9:20 AM EST Office Visit [facility] [address] [place] [address] Lj Bettencourt MD [address] [place] [address] documented as of this encounter Procedures Procedure [...] on filedocumented in this encounter Care Teams Russian Language Professor Relationship Specialty Start Date End Date Lyla Lozoya DO [address] [place] [address] MCKINLEY - Parvez Commercial 03/19/21 documented as of this encounter
--- OUTSIDE RECORDS SUMMARY | 2025-02-15 11:01 | XMS_ITS | Encounter Summary ---
Author Organization [facility] Address [address] [place] [address] Care Team Providers Care High School Agriculture Teacher Name Role Phone Lyla Lozoya DO Unavailable [phone] Encounter Details Date Type Department Care Team (Late Contact Info) Description 10/15/2022 Clinisync Result Encounter N[facility]S External Department Unsolicited Leonid Mckeon DO [address] [facility] [address] [place], [place] [id number] Social History Tobacco Use Types Packs/Day Years Used Date Smoking Tobacco: Never Assessed Comments Yes Sex and Gender Information Value Date Recorded Sex Assigned at Not on file Legal Sex Female 11:15 PM EDT Gender Identity Not on file Sexual Orientation Not on file documented as of this encounter Plan of Treatment Upcoming Encounters Date Type Department Care Team ([facility] Contact Info) Description 04/12/2025 9:30 AM EST Office Visit [facility]GER [address] [place] [address] Geeta Fuchs PA [address] [facility] [address] [place] [address] 04/18/2025 9:20 AM EST Office Visit [facility] [address] [place] [address] Lj Bettencourt MD [address] [place] [address] documented as of this encounter Procedures Procedure [...] on filedocumented in this encounter Care Teams High School Agriculture Teacher Relationship Specialty Start Date End Date Lyla Lozoya DO [address] [place] [address] MCKINLEY - Parvez Commercial 03/19/21 documented as of this encounter
--- OUTSIDE RECORDS SUMMARY | 2025-02-15 11:01 | XMS_ITS | Encounter Summary ---
Author Organization [facility] Address [address] [place] [address] Care Team Providers Care Engraver Pantograph Name Role Phone Lyla Lozoya DO Unavailable [phone] Encounter Details Date Type Department Care Team (Late Contact Info) Description 12/02/2022 Abstract [facility] [address] [facility] [place] [address] Leonid Mckeon DO [address] [facility] [address] [place], [facility] Social History Tobacco Use Types Packs/Day [...] AM EST Office Visit [facility] [address] [place] [address] Geeta Fuchs PA [address] [facility] [address] [place], [facility] 04/18/2025 9:20 AM EST Office Visit [facility] [address] [place] [address] Lj Bettencourt MD [address] [place] [address] documented as of this encounter Visit Diagnoses Not on filedocumented in this encounter Care Teams Engraver Pantograph Relationship Specialty Start Date End Date Lyla Lozoya DO [address] [facility] [address] [place] [address] PCP - Parvez Lopez 03/19/21 documented as of this encounter
--- OUTSIDE RECORDS SUMMARY | 2025-02-15 11:01 | XMS_ITS | Encounter Summary ---
Author Organization [facility] Address [address] [place] [address] Care Team Providers Care Line Fisher Name Role Phone Unavailable Primary Care Provider Unavailabl e Encounter Details Date Type Department Care Team (Late Contact Info) Description 03/11/2023 Abstract [facility] [address] [place] [address] Leonid Mckeon DO [address] [facility] [address] [place], [facility] Social History Tobacco Use Types Packs/Day Years [...] Upcoming Encounters Date Type Department Care Team ([facility] Contact Info) Description 04/12/2025 9:30 AM EST Office Visit [facility] LEGER [address] [place] [address] Geeta Fuchs PA [address] [facility] [address] [place], [facility] 04/18/2025 9:20 AM EST Office Visit [facility] [address] [place] [address] Lj Bettencourt MD [address] [place] [address] documented as of this encounter Visit Diagnoses Not on filedocumented in this encounter
--- OUTSIDE RECORDS SUMMARY | 2025-02-15 11:01 | XMS_ITS | Encounter Summary ---
Author Organization [facility] Address [address] [place] [address] Care Team Providers Care Installation And Repair Technician Name Role Phone Unavailable Primary Care Provider Unavailabl e Encounter Details Date Type Department Care Team (Late Contact Info) Description 02/20/2023 Abstract [facility] [address] [facility] [place] [address] Leonid Mckeon DO [address] [facility] [address] [place], [facility]11 Social History Tobacco Use Types [...] Upcoming Encounters Date Type Department Care Team ([facility] Contact Info) Description 04/12/2025 9:30 AM EST Office Visit [facility]I LEGER [address] [facility] [place] [address] Geeta Fuchs PA [address] [facility] [address] [place], [facility]11 04/18/2025 9:20 AM EST Office Visit [facility] [address] [place] [address] Lj Bettencourt MD [address] [place] [address] documented as of this encounter Visit Diagnoses Not on filedocumented in this encounter
--- OUTSIDE RECORDS SUMMARY | 2025-02-15 11:01 | XMS_ITS | Encounter Summary ---
Author Organization [facility] Address [address] [place] [address] Care Team Providers Care Combining Machine Operator Name Role Phone Unavailable Primary Care Provider Unavailabl e Encounter Details Date Type Department Care Team (Late Contact Info) Description 01/10/2023 Abstract [facility] [address] [facility] [place] [address] Leonid Mckeon DO [address] [facility] [address] [place], [facility]11 Social History Tobacco Use Types Packs/Day [...] Affairs [facility] Contact Info) Description 04/12/2025 9:30 AM EST Office Visit [facility]GER [address] [facility] [place] [address] Geeta Fuchs PA [address] [facility] [address] [place], [facility]11 04/18/2025 9:20 AM EST Office Visit [facility] [address] [place] [address] Lj Bettencourt MD [address] [place] [address] documented as of this encounter Visit Diagnoses Not on filedocumented in this encounter
--- OUTSIDE RECORDS SUMMARY | 2025-02-15 11:01 | XMS_ITS | Clinical Summary ---
Author Organization [facility] Address [address] [place] [address] Care Team Providers Care Detective Automobile Section Name Role Phone Unavailable Primary Care Provider [...] 9:30 [place] [address] Geeta Fuchs PA Encounter for weight management 01/18/2025 Bamboo flowsheet [facility] [address] [place] [address] Geeta Fuchs PA 12/21/2024 9:50 AM EDT Office Visit [facility] [address] [place] [address] Geeta Fuchs PA Weight gain; Encounter for weight management 12/21/2024 Bamboo flowsheet [facility] [address] [place] [address] Geeta Fuchs PA 11/23/2024 9:50 AM EDT Office Visit [facility] [address] [place] [address] Leonid Mckeon DO Encounter to discuss test results; PCOS (polycystic ovarian syndrome); Encounter for weight management; Abnormal uterine bleeding (AUB) 11/23/2024 Bamboo flowsheet [facility] [address] [place] [address] Leonid Mckeon DO 11/23/2024 Travel from Last [...] AM EST Office Visit [facility] [address] [facility] [place] [address] Geeta Fuchs PA [address] [facility] [place] [address] 04/18/2025 9:20 AM EST Office Visit [facility] [address] [place] [address] Lj Bettencourt MD [address] [place] [address] Insurance [facility]
--- OUTSIDE RECORDS SUMMARY | 2025-02-15 11:01 | XMS_ITS | Encounter Summary ---
Author Organization [facility] Address [address] [place] [address] Care Team Providers Care Bulk Sealer Operator Name Role Phone Lyla Lozoya DO Unavailable [phone] Encounter Details Date Type Department Care Team (Late Contact Info) Description 11/21/2022 Abstract [facility] [address] [facility] [place] [address] Leonid Mckeon DO [address] [facility] [address] [place], [facility] Social History Tobacco Use Types Packs/Day Years [...] [address] [facility] [place] [address] Geeta Fuchs PA [address] [facility] [address] [facility] [address] [place], [facility] 04/18/2025 9:20 AM EST Office Visit [facility] [address] [place] [address] Lj Bettencourt MD [address] [place] [address] documented as of this encounter Visit Diagnoses Not on filedocumented in this encounter Care Teams Bulk Sealer Operator Relationship Specialty Start Date End Date Lyla Lozoya DO [address] [email or web address] [address] [place] [address] PCP - Parvez Lopez 03/19/21 documented as of this encounter
--- OUTSIDE RECORDS SUMMARY | 2025-02-15 11:01 | XMS_ITS | Encounter Summary ---
Author Organization [facility] Address [address] [place] [address] Care Team Providers Care Employee Relations Advisor Name Role Phone Unavailable Primary Care Provider Unavailabl e Encounter Details Date Type Department Care Team ([facility] Contact Info) Description 02/24/2023 Abstract [facility]I LEGER [address] [facility] [place] [address] Geeta Fuchs PA [address] [address] [place], [place] [address] Social History Tobacco Use Types Packs/Day Years [...] Upcoming Encounters Date Type Department Care Team ([facility] Contact Info) Description 04/12/2025 9:30 AM EST Office Visit [facility]I LEGER [address] [facility] [place] [address] Geeta Fuchs PA [address] [address] [place], [facility]11 04/18/2025 9:20 AM EST Office Visit [facility] [address] [place] [address] Lj Bettencourt MD [address] [place] [address] documented as of this encounter Visit Diagnoses Not on filedocumented in this encounter
--- OUTSIDE RECORDS SUMMARY | 2025-02-15 11:01 | XMS_ITS | Encounter Summary ---
Author Organization [facility] Address [address] [place] [address] Care Team Providers Care Stitching Machine Setter Name Role Phone Unavailable Primary Care Provider Unavailabl e Encounter Details Date Type Department Care Team (Late Contact Info) Description 12/30/2022 Abstract [facility] [address] [place] [address] Leonid Mckeon DO [address] [facility] [address] [place], [facility] Social History Tobacco Use Types Packs/Day Years [...] Upcoming Encounters Date Type Department Care Team ([facility] Contact Info) Description 04/12/2025 9:30 AM EST Office Visit [facility]I LEGER [address] [place] [address] Geeta Fuchs PA [address] [facility] [address] [place], [facility] 04/18/2025 9:20 AM EST Office Visit [facility] [address] [place] [address] Lj Bettencourt MD [address] [place] [address] documented as of this encounter Visit Diagnoses Not on filedocumented in this encounter
--- OUTSIDE RECORDS SUMMARY | 2025-02-15 11:01 | XMS_ITS | Encounter Summary ---
Author Organization [facility] Address [address] [place] [address] Care Team Providers Care Sales Representative Public Utilities Name Role Phone Unavailable Primary Care Provider Unavailabl e Encounter Details Date Type Department Care Team (Late Contact Info) Description 12/30/2022 Abstract [facility] [address] [facility] [address] Leonid Mckeon DO [address] [facility] [address] [place], [facility]11 Social History Tobacco Use Types Packs/Day Years [...] Upcoming Encounters Date Type Department Care Team ([facility] Contact Info) Description 04/12/2025 9:30 AM EST Office Visit [facility]I LEGER [address] [facility] [address] Geeta Fuchs PA [address] [facility] [address] [place], [facility]11 04/18/2025 9:20 AM EST Office Visit [facility] [address] [place] [address] Lj Bettencourt MD [address] [place] [address] documented as of this encounter Visit Diagnoses Not on filedocumented in this encounter
--- OUTSIDE RECORDS SUMMARY | 2025-02-15 11:01 | XMS_ITS | Encounter Summary ---
Author Organization [facility] Address [address] [place] [address] Care Team Providers Care Technology Teacher Name Role Phone Lyla Lozoya DO Unavailable [phone] Encounter Details Date Type Department Care Team (Late Contact Info) Description 11/14/2022 Abstract [facility] [address] [facility] [place] [address] Leonid Mckeon DO [address] [facility] [address] [place], [facility]11 Social History Tobacco Use Types Packs/Day [...] AM EST Office Visit [facility]I LEGER [address] [place] [address] Geeta Fuchs PA [address] [facility] [address] [place], [facility] 04/18/2025 9:20 AM EST Office Visit [facility] [address] [place] [address] Lj Bettencourt MD [address] [place] [address] documented as of this encounter Visit Diagnoses Not on filedocumented in this encounter Care Teams Technology Teacher Relationship Specialty Start Date End Date Lyla Lozoya DO [address] [facility] [address] [place] [address] PCP - Parvez Lopez 03/19/21 documented as of this encounter
--- OUTSIDE RECORDS SUMMARY | 2025-02-15 11:01 | XMS_ITS | Encounter Summary ---
Author Organization [facility] Address [address] [place] [address] Care Team Providers Care Blast Furnace Blower Name Role Phone Unavailable Primary Care Provider Unavailabl e Encounter Details Date Type Department Care Team (Late Contact Info) Description 02/12/2023 Clinisync Result Encounter [facility] External Department Unsolicited Oxana Mckeon DO [address] [facility] [address] Mike Meehan, [id number] Social History Tobacco Use Types Packs/Day Years [...] Upcoming Encounters Date Type Department Care Team ([facility] Contact Info) Description 04/12/2025 9:30 AM EST Office Visit ALLI LEGER [address] [phone] Geeta Fuchs PA [address] [place], [id number] 04/18/2025 9:20 AM EST Office Visit [facility] [address] [place] [phone] Lj Bettencourt MD [address] [place] [address] (work) documented as of this encounter Procedures Procedure Name Priority Date/Time Associated Diagnosis Comments US OB BPP W NON-STRESS 02/12/2023 1:18 PM EDT documented in this encounter Results * US OB BPP W NON-STRESS (02/12/2023 1:18 PM EDT) Anatomical Region Laterality Modality Other 02/12/2023 1:18 PM EDT Narrative 02/12/2023 1:18 [place] [address] Ultrasound Report Signed Patient: ALPA KNIGHT MR#: [id number] : 2000 Acct:[id number] Age/Sex: 22 / F ADM Date: 02/12/23 Loc: [facility] 250-[address]: Oxana Mckeon D.O. Ordering Physician: Oxana Mckeon D.O. Date of Service: 02/12/23 Procedure(s): US OB BPP w non-stress Accession Number(s): [id number] cc: Oxana Mckeon D.O.; Physician,Non-Staff M.DKhurram The [address] [address] Patient Name: ALPA KNIGHT MRN: [id number] date: 2000 Sex: F Assigned Patient Location: [facility] Current Patient Location: [facility] Accession/Order Number: [id number] Exam Date: 02/12/2023 12:30 Report Date: 02/12/2023 13:18 At the request of: OXANA MCKEON Procedure: US OB BPP w non-stress EXAM: US OB growth, US OB BPP w non-stress; [id number], [id number] HISTORY: Decreased motion. COMPARISON: growth ultrasound 01/08/2023. [...] Signed By: 02/12/23 1320 DD/ 1318 TD/TT: Open H[employer] Furnace Laborer: Procedure Note Radiology, Radiologist, MD - 02/12/2023 [place] [address] Ultrasound Report Signed Patient: ALPA KNIGHT EMR#: [id number] : 2000Acct:[id number] Age/Sex: 22 / FADM Date: 02/12/23 Loc: [facility] 250-[address]: Oxana Mckeon D.O. Ordering Physician: Oxana Mckeon D.O. Date of Service: 02/12/23 Procedure(s): US OB BPP w non-stress Accession Number(s): [id number] cc: Oxana Mckeon D.O.; Physician,Non-Staff M.D. The [place] [id number] Patient Name: ALPA KNIGHT MRN: [id number] date: 2000 Sex: F Assigned Patient Location: [facility] Current Patient Location: [facility] Accession/Order Number: [id number] Exam Date: 02/12/2023 12:30 Report Date: 02/12/2023 13:18 At the request of: OXANA MCKEON Procedure: US OB BPP w non-stress EXAM: US OB growth, US OB BPP w non-stress; [id number], [id number] HISTORY: Decreased motion. COMPARISON: growth ultrasound 01/08/2023. [...] measures 131 bpm. Amniotic fluid index (JESS) [id number] cm. Cervix appears closed. US/US OB BPP [...] Cervantes Signed By:02/12/23 1320 DD/ 1318 TD/TT: [employer] H[employer] Furnace Laborer: us Oxana Mckeon DO [facility] Final Result documented in this encounter Visit Diagnoses Not on filedocumented in this encounter
== END 2025-02-15 11:00 | disposition home or self-care (01) ==
LOC: WC 10:59
PROVIDERS: PCP Nurse Practitioner Family; Visit Provider Physician Assistant
DX: L97.822 Non-pressure chronic ulcer of other part of left lower leg with fat layer exposed (principal)
CPT/HCPCS: G0463